=== PATIENT | female | born 1940 | race Caucasian/White ===

== ENCOUNTER 2017-03-22 16:45 | Inpatient (IN) | payer OTHER ==
[2017-03-22] MEDS ORDERED: DUONEB 0.5 MG/3 MG ONE (16:57)
--- NOTE | 2017-03-22 17:02 | DR.SOBA ---
HPI - Time Seen Time seen: 16:56 - Primary Care Physician Primary Care Physician: JABIER - HPI Comment HPI Comment: PATIENT HERE FROM THE ALF WITH INCREASING SOB AND CHEST PAIN. PROGRESSINE FOR FEW DAYS. WORSE TODAY. HAVING PRODUCTIVE COUGH, YELLOW SPUTUM. PATIENT WHEEZING AND HAVE GURGLING SOUND. SHE TIRED AND WEAK. - Complaints Chief Complaint Doctors Comments: INCREASING SOB. - Reviewed Nurses Notes Reviewed: Yes - Source History Provided: Patient, Intermediate - Mode of Arrival Mode of Arrival: Stretcher - Duration Duration: Hours - Context Onset:: At Rest, With Light Exertion PE Risk Factors:: None History of:: COPD, CHF, Anxiety Currently on:: Inhaled Bronchodilators Prehospital Care:: Inhaled B2 (BREATHING TREATMENT,) - Modifying Factors Worsens:: Exertion, Lying Flat Improves:: Sitting Up - Associated Signs and Symptoms Associated Signs and Symptoms: Wheeze, Cough, Chest Pain, Leg Swelling - If Chest Pain Quality: Other (TIGHTNESS) Location: Left Lower Chest, Chest Wall - If Cough Cough: Productive, Yellow PMH - PMH Past Medical History: Anemia, Anxiety, CHF, COPD, Coronary Artery Disease, Dementia, Depression, Dyslipidemia, GERD, Hypertension, Liver Disease Past Medical History Comment: NEUROPATHY ROS - Review of Systems Constitutional: Weakness, Fatigue. negative: Chills, Fever Eyes: No Symptoms Reported. negative: Eye Pain, Discharge ENTM: Nose Congestion. negative: Ear Pain, Nose Discharge, Throat Pain Respiratoy: Productive Cough, Short of Breath, Wheezing. negative: Hemoptysis Cardiovascular: Chest Pain (TIGHTNESS), Edema Gastrointestinal/Abdominal: negative: Abdominal Pain, Diarrhea, Nausea, Vomiting Genitourinary: negative: Dysuria, Hematuria Neurological: Weakness. negative: Headache Musculoskeletal: Muscle Pain Integumentary: negative: Rash, Bruises, Juandice Hematologic/Lymphatic: Anemia Endocrine: negative: Flushing, Increased Thirst, Increased Urine All Other Systems: Reviewed and Negative PE - Vital Signs Vitals: Temperature 98.6 F Pulse Rate [Right Brachial] 70 Pulse Rate 76 Respiratory Rate 20 Blood Pressure [Right Arm] 117/55 Blood Pressure 134/62 O2 Sat by Pulse Oximetry 96 - General Limitations: No Limitations General Appearance: Alert, In No Apparent Distress - Head Head Exam: Normal Inspection - Eyes Eye exam: Normal Appearance, PERRL, EOMI. negative: Scleral Icterus, Conjunctival Injection - ENT ENT Exam: Normal Oropharynx, Normal External Ear Exam, TM's Normal Bilaterally - Neck Neck Exam: Trachea Midline - Chest Chest Inspection: Symmetric Chest Wall Rise - Respiratory Respiratory Exam: Respiratory Distress Respiratory Exam: Bilateral Wheezing, Bilateral Rales, Upper Wheezing, Upper Rhonchi, Lower Wheezing, Lower Rales, Lower Rhonchi - Cardiovascular Cardiovascular Exam: Regular Rate, Normal Rhythm, Normal Heart Sounds, +S3 - Abdominal Exam Abdominal Exam: Normal Bowel Sounds, Soft. negative: Tenderness - Extremities Extremities Exam: Normal Inspection - Back Back Exam: Paraspinal Tenderness - Neurologic Neurological Exam: Alert, Oriented X3 - Psychiatric Psychiatric Exam: Anxious - Skin Skin Exam: Normal Color MDM - Differential Diagnosis Differential Diagnosis: Bronchitis, CHF, COPD, Mycardial Infarction, Pneumonia, Pneumothorax, Respiratory Failure Course - Treatment Treatment: SEE ORDERS. LASIX IV IN ED WITH NEB TREATMENT AND IVPB ROCEPHINE. PATIENT PLACE ON B-PAP FOR HYPERCAPNIA. - Consultation Consultation Comments: DISCUSS PATIENT WITH DR. OWEN. HE WILL ADMIT PATIENT. - Education/Counseling Education/Counseling: Patient, Education Educated On: Treatment, Diagnosis ROR - Labs Reviewed Laboratory Results Reviewed?: Yes Result Diagrams: 03/23/17 02:20 03/23/17 02:20 Laboratory: 03/22/17 17:46 Sputum - Expectorated Sputum - Final WBC 7.7 X10^3/uL (3.6-10.0) 03/22/17 17:00 RBC 4.21 X10^6/uL (3.5-5.4) 03/22/17 17:00 Hgb 12.9 g/dL (12.0-16.0) 03/22/17 17:00 Hct 39.9 % (36.0-47.0) 03/22/17 17:00 MCV 94.6 fL (80.0-100.0) 03/22/17 17:00 MCH 30.7 pg (27.0-34.0) 03/22/17 17:00 MCHC 32.5 g/dL (33.0-35.0) L 03/22/17 17:00 RDW 15.6 % (11.6-16.5) 03/22/17 17:00 Plt Count 107 X10^3/uL (150.0-450.0) L 03/22/17 17:00 MPV 10.6 fL (7.4-11.0) 03/22/17 17:00 Neut % 75.5 % (42.0-75.0) H 03/22/17 17:00 Lymph % 11.1 % (21.0-51.0) L 03/22/17 17:00 Mcminn % 12.9 % (0.0-13.0) 03/22/17 17:00 Eos % 0.0 % (0.9-2.9) L 03/22/17 17:00 Baso % 0.5 % (0.2-1.0) 03/22/17 17:00 Neut # 5.8 x10^3/uL (2.2-4.8) H 03/22/17 17:00 Lymph # 0.9 X10^3/uL (1.3-2.9) L 03/22/17 17:00 Mcminn # 1.0 x10^3/uL (0.3-0.8) H 03/22/17 17:00 Eos # 0.0 x10^3/uL (0.0-0.2) 03/22/17 17:00 Baso # 0.0 X10^3/uL (0.0-0.1) 03/22/17 17:00 Absolute Nucleated RBC 0.1 /100WBC 03/22/17 17:00 Sample Site Rba 03/22/17 17:03 ABG pH 7.200 (7.35-7.45) L 03/22/17 17:03 ABG pCO2 77.0 mmHg (35.0-45.0) H* 03/22/17 17:03 ABG pO2 75.0 mmHg (80.0-100.0) L 03/22/17 17:03 ABG HCO3 30.1 mmol/L (22-26) H* 03/22/17 17:03 ABG O2 Saturation 91.0 % (90-100) 03/22/17 17:03 ABG Base Excess 0.2 mmol/L (-2.0-2.0) 03/22/17 17:03 Daniel Test Na 03/22/17 17:03 A-a Gradient 57.0 mmHg 03/22/17 17:03 FiO2 32.000 03/22/17 17:03 Blood Gas Comments Aprk well cs 03/22/17 17:03 Sodium 140 mmol/L (136-145) 03/22/17 17:35 Corrected Sodium 141 mmol/L (136-145) 03/22/17 17:35 Potassium 5.3 mmol/L (3.5-5.1) H 03/22/17 17:35 Chloride 105 mmol/L (98-107) 03/22/17 17:35 Carbon Dioxide 29.2 mmol/L (21-32) 03/22/17 17:35 BUN 30 mg/dL (7-18) H 03/22/17 17:35 Creatinine 2.19 mg/dL (0.55-1.02) H 03/22/17 17:35 Est GFR (MDRD) Af Amer 28 (>60) L 03/22/17 17:35 Est GFR (MDRD) Non-Af 23 (>60) L 03/22/17 17:35 Glucose 156 mg/dL (65-99) H 03/22/17 17:35 Calcium 9.0 mg/dL (8.5-10.1) 03/22/17 17:35 Corrected Calcium 9.9 mg/dL (8.5-10.1) 03/22/17 17:35 Total Bilirubin 0.90 mg/dL (0.2-1.0) 03/22/17 17:35 AST 26 Units/L (15-37) 03/22/17 17:35 ALT 18 Units/L (12-78) 03/22/17 17:35 Alkaline Phosphatase 75 Units/L (46-116) 03/22/17 17:35 Creatine Kinase 222 Units/L (26-192) H 03/22/17 17:35 CK-MB (CK-2) 2.5 ng/mL (0-4.0) 03/22/17 17:35 CK/CKMB % Calc 1.1 % (<4) 03/22/17 17:35 Troponin I 0.33 ng/mL (0-1.5) 03/22/17 17:35 B-Natriuretic Peptide 433 pg/mL (0-79) H 03/22/17 17:35 Total Protein 7.7 g/dL (6.4-8.2) 03/22/17 17:35 Albumin 2.9 g/dL (3.4-5.0) L 03/22/17 17:35 Globulin 4.8 g/dL (2.5-4.5) H 03/22/17 17:35 Albumin/Globulin Ratio 0.6 Ratio (1.1-2.1) L 03/22/17 17:35 Specimen Type Catherized urine 03/22/17 17:15 Urine Color Yellow (YELLOW) 03/22/17 17:15 Urine Appearance Cloudy (CLEAR) 03/22/17 17:15 Urine pH 6.0 (5.0 - 8.0) 03/22/17 17:15 Ur Specific [place] 1.015 (1.000-1.030) 03/22/17 17:15 Urine Protein 2+ (NEGATIVE) 03/22/17 17:15 Urine Glucose (UA) Negative (NEGATIVE) 03/22/17 17:15 Urine Ketones Negative (NEGATIVE) 03/22/17 17:15 Urine Occult Blood 3+ (NEGATIVE) 03/22/17 17:15 Urine Nitrite Positive (NEGATIVE) 03/22/17 17:15 Urine Bilirubin Negative (NEGATIVE) 03/22/17 17:15 Urine Urobilinogen Normal (NORMAL) 03/22/17 17:15 Ur Leukocyte Esterase 2+ (NEGATIVE) 03/22/17 17:15 Urine RBC 15-25 /HPF (NEGATIVE) 03/22/17 17:15 Urine WBC 25-30 /HPF (NEGATIVE) 03/22/17 17:15 Ur Squamous Epith Cells Rare /HPF (NEGATIVE) 03/22/17 17:15 Urine Bacteria 3+ /HPF (NEGATIVE) 03/22/17 17:15 Ur Culture Indicated? Yes/culture set up 03/22/17 17:15 - XRAY XRAY Interpreted by: Radiologist XRAY Findings: REPORT DISCUSS WITH PATIENT. - EKG Rhythm: NSR (EKG NOTED) - Diagnosis Discharge Problem: Respiratory disease, Hypercapnia Pneumonia Qualifiers: Pneumonia type: due to unspecified organism Laterality: left Lung location: lower lobe of lung Qualified Code(s): J18.1 - Lobar pneumonia, unspecified organism CHF (congestive heart failure) Qualifiers: Congestive heart failure type: combined Congestive heart failure chronicity: acute on chronic Qualified Code(s): I50.43 - Acute on chronic combined systolic (congestive) and diastolic (congestive) heart failure UTI (urinary tract infection) Qualifiers: Urinary tract infection type: site unspecified Hematuria presence: with hematuria Qualified Code(s): N39.0 - Urinary tract infection, site not specified - Discharge Plan Disposition: 09 ADMITTED INPATIENT Condition: Stable - Follow ups/Referrals - Instructions
[2017-03-22] MEDS ORDERED: DUONEB 0.5 MG/3 MG NEB ONE (17:03)
[2017-03-22] MEDS ORDERED: LASIX IVP ONE (17:04)
[2017-03-22 17:17] LABS: ABG BASE EXCESS 0.2 mmol/L (-2.0-2.0); ABG HCO3 30.1 mmol/L (22-26)
[2017-03-22 17:24] LABS: BASOPHILS % (AUTO) 0.5 % (0.2-1.0); HEMATOCRIT 39.9 % (36.0-47.0); HEMOGLOBIN 12.9 g/dL (12.0-16.0); LYMPHOCYTES # (AUTO) 0.9 X10^3/uL (1.3-2.9); LYMPHOCYTES % (AUTO) 11.1 % (21.0-51.0); MEAN CORPUSCULAR HEMOGLOBIN 30.7 pg (27.0-34.0); MEAN CORPUSCULAR HGB CONC 32.5 g/dL (33.0-35.0); MEAN CORPUSCULAR VOLUME 94.6 fL (80.0-100.0); MEAN PLATELET VOLUME 10.6 fL (7.4-11.0); MONOCYTES % (AUTO) 12.9 % (0.0-13.0); NEUTROPHILS # (AUTO) 5.8 x10^3/uL (2.2-4.8); NEUTROPHILS % (AUTO) 75.5 % (42.0-75.0); PLATELET COUNT 107 X10^3/uL (150.0-450.0); RED BLOOD COUNT 4.21 X10^6/uL (3.5-5.4); RED CELL DISTRIBUTION WIDTH 15.6 % (11.6-16.5); WHITE BLOOD COUNT 7.7 X10^3/uL (3.6-10.0)
[2017-03-22 17:27] LABS: BILIRUBIN,URINE NEGATIVE (NEGATIVE); BLOOD/HEMOGLOBIN,URINE 3+ (NEGATIVE); GLUCOSE, URINE NEGATIVE (NEGATIVE); KETONES,URINE NEGATIVE (NEGATIVE); LEUKOCYTE ESTERASE ,URINE 2+ (NEGATIVE); NITRITES,URINE POSITIVE (NEGATIVE); PROTEIN,URINE 2+ (NEGATIVE); UROBILINOGEN,URINE NORMAL (NORMAL)
[2017-03-22 17:37] LABS: APPEARANCE,URINE CLOUDY (CLEAR); COLOR,URINE YELLOW (YELLOW)
[2017-03-22 17:38] LABS: BACTERIA,URINE 3+ /HPF (NEGATIVE); RBC,URINE 15-25 /HPF (NEGATIVE); SQUAMOUS EPITHELIAL CELL,UR RARE /HPF (NEGATIVE)
--- NOTE | 2017-03-22 17:55 | RAD ---
HISTORY: Chest pain Study: Single view chest Comparison: None Findings: Single portable view is limited by patient rotation. Ill-defined opacity seen at the left lung base that may reflect underlying atelectasis, effusion or infiltrate. Cardiac silhouette appears borderli ne enlarged with sternotomy changes present. The soft tissues are unremarkable. IMPRESSION: 1. Left basilar opacities that may reflect underlying atelectasis, effusion or infiltrate. Reported By:
[2017-03-22 18:16] LABS: CARBON DIOXIDE 29.2 mmol/L (21-32); CREATININE 2.19 mg/dL (0.55-1.02); TROPONIN I 0.33 ng/mL (0-1.5)
[2017-03-22 18:21] LABS: ALBUMIN 2.9 g/dL (3.4-5.0); CKMB % 1.1 % (<4); COR CA(FOR HYPOALB) 9.9 mg/dL (8.5-10.1); CREATINE KINASE MB 2.5 ng/mL (0-4.0); TOTAL PROTEIN 7.7 g/dL (6.4-8.2)
[2017-03-22] MEDS ORDERED: ROCEPHIN VIAL 1 GM ONE (19:25)
[2017-03-22] MEDS ORDERED: NS 50 ML IV + SPIKE MINIBAG* 50 ML IV ONE (19:27)
[2017-03-22] MEDS: ROCEPHIN VIAL 1 GM 1 GM in NS 50 ML IV + SPIKE MINIBAG* 50 ML IV SCH (19:33)
[2017-03-22 20:57] LABS: CKMB % 1.2 % (<4); CREATINE KINASE MB 1.8 ng/mL (0-4.0); TROPONIN I 0.3 ng/mL (0-1.5)
[2017-03-22] MEDS ORDERED: SOLU-Medrol 125 MG VIAL IVP ONE (21:20)
[2017-03-22] MEDS: DUONEB 0.5 MG/3 MG NEB SCH (21:47)
[2017-03-22] MEDS ORDERED: NS 1/2 1000 ML IV 1,000 ML IV ONE (21:56)
[2017-03-22] MEDS: NS 1/2 1000 ML IV 1,000 ML IV SCH (21:59)
[2017-03-22] MEDS: TUSSIONEX PENNKINETIC SUSP PO PRN (22:00)
[2017-03-22] MEDS: VIBRAMYCIN 100 MG in NS 100 ML IV + SPIKE MINIBAG* 100 ML IV SCH (22:00)
[2017-03-22] MEDS: ROBITUSSIN DM PO SCH (22:00)
[2017-03-22] MEDS: SOLU-Medrol 40 MG VIAL IVP SCH (22:02)
[2017-03-22] MEDS ORDERED: SALINE 0.9% 3 ML NEB TX ONE (22:04)
[2017-03-22 22:44] VITALS: BMI 33.6
[2017-03-23] MEDS: DUONEB 0.5 MG/3 MG NEB SCH ×6 (00:49→20:39)
[2017-03-23 02:32] LABS: BASOPHILS % (AUTO) 0.4 % (0.2-1.0); HEMATOCRIT 36.6 % (36.0-47.0); HEMOGLOBIN 11.8 g/dL (12.0-16.0); LYMPHOCYTES # (AUTO) 0.4 X10^3/uL (1.3-2.9); LYMPHOCYTES % (AUTO) 8.4 % (21.0-51.0); MEAN CORPUSCULAR HEMOGLOBIN 30.2 pg (27.0-34.0); MEAN CORPUSCULAR HGB CONC 32.3 g/dL (33.0-35.0); MEAN CORPUSCULAR VOLUME 93.3 fL (80.0-100.0); MEAN PLATELET VOLUME 9.8 fL (7.4-11.0); MONOCYTES # (AUTO) 0.4 x10^3/uL (0.3-0.8); MONOCYTES % (AUTO) 7.5 % (0.0-13.0); NEUTROPHILS # (AUTO) 4.4 x10^3/uL (2.2-4.8); NEUTROPHILS % (AUTO) 83.7 % (42.0-75.0); PLATELET COUNT 70 X10^3/uL (150.0-450.0); RED BLOOD COUNT 3.92 X10^6/uL (3.5-5.4); RED CELL DISTRIBUTION WIDTH 15.5 % (11.6-16.5); WHITE BLOOD COUNT 5.3 X10^3/uL (3.6-10.0)
[2017-03-23 02:43] LABS: ALBUMIN 2.4 g/dL (3.4-5.0); CALCIUM 8.7 mg/dL (8.5-10.1); CARBON DIOXIDE 29.6 mmol/L (21-32); CREATININE 2.19 mg/dL (0.55-1.02); TOTAL PROTEIN 6.6 g/dL (6.4-8.2)
[2017-03-23 02:58] LABS: CKMB % 1.8 % (<4); CREATINE KINASE MB 1.7 ng/mL (0-4.0); TROPONIN I 0.24 ng/mL (0-1.5)
[2017-03-23 05:53] LABS: ABG BASE EXCESS 0.4 mmol/L (-2.0-2.0)
[2017-03-23 06:05] LABS: ABG HCO3 30.6 mmol/L (22-26)
[2017-03-23 06:06] LABS: ABG ALLEN TEST POS
[2017-03-23] MEDS: SOLU-Medrol 40 MG VIAL IVP SCH ×3 (06:10→21:07)
[2017-03-23 06:35] LABS: ABG BASE EXCESS 2.1 mmol/L (-2.0-2.0)
[2017-03-23 06:36] LABS: ABG HCO3 31.9 mmol/L (22-26)
--- NOTE | 2017-03-23 07:18 | RAD ---
HISTORY: Respiratory distress Study: Chest one view Comparison: March 22, 2017 Findings: Patient is rotated to the left. The patient is status post median sternotomy and CABG. The heart is enlarged. No definite congestive heart failure is noted. The right lung and left upper lung mahoney a re clear peer E increased density remains in the retrocardiac area of the left lower lobe obscuring the left hemidiaphragm. This could be due to rotation however underlying infiltrate, atelectasis or a fusion cannot be excluded. IMPRESSION: No significant change from the prior examination Reported By:
[2017-03-23] MEDS: ROCEPHIN VIAL 1 GM 1 GM in NS 50 ML IV + SPIKE MINIBAG* 50 ML IV SCH ×2 (08:42→09:19)
[2017-03-23] MEDS: VIBRAMYCIN 100 MG in NS 100 ML IV + SPIKE MINIBAG* 100 ML IV SCH (08:43)
[2017-03-23] MEDS: ROBITUSSIN DM PO SCH ×4 (08:43→21:08)
[2017-03-23] MEDS ORDERED: NORCO 10/325 TAB PO PRN (09:10)
[2017-03-23] MEDS ORDERED: NS 1/2 1000 ML IV 1,000 ML IV ONE (09:24)
[2017-03-23] MEDS ORDERED: NS 50 ML IV + SPIKE MINIBAG* 50 ML IV ONE (09:25)
[2017-03-23] MEDS ORDERED: LEVAQUIN PREMIX IV 750 MG 750 MG/150 ML BAG IV ONE (09:25)
[2017-03-23] MEDS ORDERED: ARICEPT TAB 10 MG ONE (09:26)
[2017-03-23] MEDS ORDERED: FORTAZ or TAZICEF INJ ONE (09:27)
[2017-03-23] MEDS: FOLIC ACID TAB 1 MG PO SCH (09:52)
[2017-03-23] MEDS: COREG TAB 3.125 MG PO SCH ×2 (09:52→21:08)
[2017-03-23] MEDS: ARICEPT TAB 5 MG PO SCH (09:53)
[2017-03-23] MEDS: IMDUR PO SCH (09:54)
[2017-03-23] MEDS: ANTIVERT TAB 25 MG PO SCH ×2 (09:54→21:08)
[2017-03-23] MEDS ORDERED: LYRICA CAP 100 MG PO ONE (09:55)
[2017-03-23] MEDS: LEVAQUIN PREMIX IV 750 MG 750 MG/150 ML BAG IV SCH (09:59)
[2017-03-23] MEDS: LYRICA CAP 75 MG PO SCH ×3 (09:59→21:08)
[2017-03-23] MEDS ORDERED: ZESTRIL TAB 20 MG PO SCH (10:00)
[2017-03-23] MEDS ORDERED: FORTAZ or TAZICEF INJ 1 GM in NS 50 ML IV + SPIKE MINIBAG* 50 ML IV SCH (10:00)
[2017-03-23] MEDS ORDERED: LEVAQUIN PREMIX IV 750 MG 750 MG/150 ML BAG IV SCH (10:00)
--- NOTE | 2017-03-23 11:01 | DR.H&P ---
H&P - History & Physical for Day of: H&P Date: 03/22/17 - Chief Complaint Chief Complaint: shortness of breath - Allergies Allergies/Adverse Reactions: Allergies Allergy/AdvReac Type Severity Reaction Status Date / Time MS Sulfa Antibiotics Allergy Verified 03/22/17 17:09 - History of Present Illness History of Present Illness: Patient is a 76 yo female who presented to the emergency room with complaints of increasing shortnees of breath and chest pain which has been getting worse over the last three days. She has a productive cough with yellow which wheezing and complains of tiredness and increased weakness. Patient has history of Coronary artery disease, COPD, Sleep apnea, hyperlipidemia, hypertension, GERD, Hiatial Hernia, Anemia, anxiety and depression. Vital signs on arrival 98.6, 102, 24, 80% on NC, 134/62. Physical exam reveals bilateral wheezing and rhonchi on auscultation and patient appear very anxious. Patient was placed on bipap for hypercapnia IV Lasix given and Duoneb. ABG on arrival to ER showed pH of 7.2000, pCO2 77.0, pO2 75.0, HCO3 30.1. Labs on arrival to the emergency room were normal with the exception MCHC 32.5, Platelet count 107, Neut% 75.5, Lymph% 11.1, Eso% 0.0, Neut# 5.8, Lymph# 0.9, Stanton# 1.0, Potassium 5.3, BUN 30, Creatinine 2.19, Est GFR 23, Glucose 156 , Creatinine Kinase 222, BNP 433, Albumin 2.9, Globulin 4.8, Albumin/Globulin Ratio 0.6. Urinalysis showed 2+ protein, 3+ blood, positive for nitrites, 2+ Leukocyte esterase, RBC 15-25, WBC 25-30, 3+ bacteria. Chest xray show left basilar opacities that may reflect underlying atelectasis, effusion or infiltrate. Patient was admitted with diagnosis of pneumonia, UTI, Respiratory Distress. Patient placed on pneumonia protocol with rocephin 1gm IV, Doxycycline 100mg IV Q12hr, Solumedrol 40mg IV q8hr, Duonebs q4hr, tussionex 5ml po q12hr PRN, 1/2NS @KVO. Will follow up with patient in am with repeat labs including ABG and chest xray. - Past Medical History Past Medical History: Anemia, Anxiety, CHF, COPD, Coronary Artery Disease, Dementia, Depression, Dyslipidemia, GERD, Hypertension, Liver Disease, PR, Renal Disease - Past Surgical History Surgical History: CABG/Valve Surgery, Other - Social History Does patient currently use any type of tobacco product: No Have you used tobacco products in the last 12 months: No Type of Tobacco Use: None Does any household member use tobacco: No Alcohol Use: None Drug Use: None - Medications Home Medications: Carvedilol [COREG TAB 3.125 MG *] 1 tab PO BID 03/22/17 [History Confirmed 03/22] Donepezil Hydrochloride [ARICEPT TAB 5 MG *] 1 tab PO DAILY 03/22/17 [History Confirmed 03/22/17] Folic Acid [FOLIC ACID TAB 1 MG *] 1 tab PO DAILY 03/22/17 [History Confirmed ] Hydrocodone-Acet 10/325 mg [NORCO 10 MG/325 MG *] 1 tab PO Q6H PRN 03/22/17 [ History Confirmed 03/22/17] Isosorbide Mononitrate [IMDUR 30 MG *] 1 tab PO DAILY 03/22/17 [History Confirmed 03/22/17] Losartan Potassium 12.5 mg PO DAILY 03/22/17 [History Confirmed 03/22/17] Meclizine HCl [Meclizine 25] 1 tab PO BID 03/22/17 [History Confirmed 03/22/17] Pitavastatin Calcium [Livalo] 1 tab PO HS 03/22/17 [History Confirmed 03/22/17] Pregabalin [LYRICA 75 MG *] 1 cap PO TID 03/22/17 [History Confirmed 03/22/17] Simvastatin [ZOCOR 40 MG *] 1 tab PO HS 03/22/17 [History Confirmed 03/22/17] - Review of Systems Constitutional: Weakness, Malaise Eyes: No Symptoms Reported ENT: No Symptoms Reported Respiratory: Cough, Shortness of Breath, SOB with Excertion, Sputum, Wheezing Cardiovascular: Chest Pain Gastrointestinal: No Symptoms Reported Genitourinary: No Symptoms Reported Musculoskeletal: No Symptoms Reported Skin: No Symptoms Reported Neurological: Weakness - Physical Exam Vital Signs: 98.6, 102, 24, 80% on NC, 134/62. Oriented: Normal Eyes: Normal Ear: Normal Nose: Normal Throat: Normal Respiratory: Rhonchi Throughout, Wheezes Throughout Cardiovascular: Normal : Normal Auscultation: Bowel Sounds: Normal Palpation: Normal Tenderness: Normal Skin: Decreased Turgur Musculoskeletal: Instability Psychiatric: Normal Mood Description: Calm, Appropriate Affect: Anxious Speech Pattern: Clear, Appropriate - Assessment/Plan (1) Pneumonia Qualifiers: Pneumonia type: due to unspecified organism Aspiration pneumonia type: A Laterality: left Lung location: lower lobe of lung Qualified Code(s): J18.1 - Lobar pneumonia, unspecified organism Status: Acute Plan: pneumonia protocol rocephin 1gm IV, Doxycycline 100mg IV Q12hr, Solumedrol 40mg IV q8hr, Duonebs q4hr, tussionex 5ml po q12hr PRN (2) Respiratory disease Status: Acute Plan: BiPAP, dunebs q4hr (3) UTI (urinary tract infection) Qualifiers: Urinary tract infection type: site unspecified Hematuria presence: with hematuria Indwelling urinary catheter type: I Encounter type: E Qualified Code(s): N39.0 - Urinary tract infection, site not specified; R31.9 - Hematuria , unspecified Status: Acute Plan: rocephin 1gm IV, Doxycycline 100mg IV Q12hr
--- NOTE | 2017-03-23 11:04 | PCM.PROG ---
Progress Note - Progress Note for Day of Date: 03/23/17 - Subjective Subjective: Patient is a 76yo female who was admitted with diagnosis of pneumonia, UTI, Respiratory Distress. Patient is alert and drinking water this am and still has bipap in place. Physical exam reveals bilateral scattered rhochi and wheezing. Vital Signs this am 98.1, 66, 27, 91% on BiPaP, 103/67. ABg this am shows pH7.220, PCO2 78.0, pO2 53.0, pHCO3 79.0, ABG Base excess 2.1. Labs are within normal limits with the exception of Hgb 11.8, MCHC 32.3, Platelet count 70, Neut% 83.7, Lymph% 8.4, Eos% 0.0, Lymph# 0.4, Potassium 5.7, BUN 31, Creatinine 2.19, Est GFR 23, Glucose 159, Albumin 2.4, Albumin/Globulin Ratio 0.6. Chest Xray this am shows that increased density remains in the retrocardiac area of the left lower lobe obscuring the left hemidiaphragm. We are going to discontinue her rocephin and doxycycline and place her on Levaquin and fortaz IV. We will also resumed her home medications with the exception of losartan since her blood pressure is running a little on the low side. Also increase her solumedrol to 80mg IV Q8hr. and place SCD and GCS for VTE Prophylaxis. - Past Medical Family Social History Past Med/Fam/Surg Hx: No changes since H&P Allergies: Allergies MS Sulfa Antibiotics Allergy (Verified 03/22/17 17:09) - Review of Systems ROS: No change since H&P - Vital Signs and I&O's Vital Signs: Vital Signs this am 98.1, 66, 27, 91% on BiPaP, 103/67 Intake and Output: Intake & Output 03/20/17 03/21/17 03/22/17 03/23/17 11:59 11:59 11:59 11:59 Intake Total 220 Output Total 1275 Balance -1055 - Physical Exam Oriented: Normal Eyes: Normal Ear: Normal Nose: Normal Throat: Normal Respiratory: Wheezes, Rales (scattered wheezing and rhochi bilateral ), Rhonchi Cardiovascular: Normal : Normal Auscultation: Bowel Sounds: Normal Tenderness: Normal Skin: Decreased Turgur Musculoskeletal: Instability Psychiatric: Normal Mood Description: Calm, Appropriate Affect: Anxious Speech Pattern: Clear, Appropriate - Laboratory and Diagnostics Result Diagrams: 03/23/17 02:20 03/23/17 02:20 Labs: Laboratory WBC 5.3 X10^3/uL (3.6-10.0) 03/23/17 02:20 RBC 3.92 X10^6/uL (3.5-5.4) 03/23/17 02:20 Hgb 11.8 g/dL (12.0-16.0) L 03/23/17 02:20 Hct 36.6 % (36.0-47.0) 03/23/17 02:20 MCV 93.3 fL (80.0-100.0) 03/23/17 02:20 MCH 30.2 pg (27.0-34.0) 03/23/17 02:20 MCHC 32.3 g/dL (33.0-35.0) L 03/23/17 02:20 RDW 15.5 % (11.6-16.5) 03/23/17 02:20 Plt Count 70 X10^3/uL (150.0-450.0) L 03/23/17 02:20 MPV 9.8 fL (7.4-11.0) 03/23/17 02:20 Neut % 83.7 % (42.0-75.0) H 03/23/17 02:20 Lymph % 8.4 % (21.0-51.0) L 03/23/17 02:20 Owen % 7.5 % (0.0-13.0) 03/23/17 02:20 Eos % 0.0 % (0.9-2.9) L 03/23/17 02:20 Baso % 0.4 % (0.2-1.0) 03/23/17 02:20 Neut # 4.4 x10^3/uL (2.2-4.8) 03/23/17 02:20 Lymph # 0.4 X10^3/uL (1.3-2.9) L 03/23/17 02:20 Owen # 0.4 x10^3/uL (0.3-0.8) 03/23/17 02:20 Eos # 0.0 x10^3/uL (0.0-0.2) 03/23/17 02:20 Baso # 0.0 X10^3/uL (0.0-0.1) 03/23/17 02:20 Absolute Nucleated RBC 0.1 /100WBC 03/23/17 02:20 Sample Site Rbra 03/23/17 06:30 ABG pH 7.220 (7.35-7.45) L 03/23/17 06:30 ABG pCO2 78.0 mmHg (35.0-45.0) H* 03/23/17 06:30 ABG pO2 53.0 mmHg (80.0-100.0) L 03/23/17 06:30 ABG HCO3 31.9 mmol/L (22-26) H* 03/23/17 06:30 ABG O2 Saturation 79.0 % (90-100) L* 03/23/17 06:30 ABG Base Excess 2.1 mmol/L (-2.0-2.0) H 03/23/17 06:30 Daniel Test Na 03/23/17 06:30 A-a Gradient 99.0 mmHg 03/23/17 06:30 FiO2 35.000 03/23/17 06:30 Blood Gas Comments [place] abg well-mtf 03/23/17 06:30 Sodium 142 mmol/L (136-145) 03/23/17 02:20 Corrected Sodium 143 mmol/L (136-145) 03/23/17 02:20 Potassium 5.7 mmol/L (3.5-5.1) H 03/23/17 02:20 Chloride 107 mmol/L (98-107) 03/23/17 02:20 Carbon Dioxide 29.6 mmol/L (21-32) 03/23/17 02:20 BUN 31 mg/dL (7-18) H 03/23/17 02:20 Creatinine 2.19 mg/dL (0.55-1.02) H 03/23/17 02:20 Est GFR (MDRD) Af Amer 28 (>60) L 03/23/17 02:20 Est GFR (MDRD) Non-Af 23 (>60) L 03/23/17 02:20 Glucose 159 mg/dL (65-99) H 03/23/17 02:20 Calcium 8.7 mg/dL (8.5-10.1) 03/23/17 02:20 Corrected Calcium 10.0 mg/dL (8.5-10.1) 03/23/17 02:20 Total Bilirubin 0.60 mg/dL (0.2-1.0) 03/23/17 02:20 AST 17 Units/L (15-37) 03/23/17 02:20 ALT 14 Units/L (12-78) 03/23/17 02:20 Alkaline Phosphatase 60 Units/L (46-116) 03/23/17 02:20 Creatine Kinase 97 Units/L (26-192) 03/23/17 02:20 CK-MB (CK-2) 1.7 ng/mL (0-4.0) 03/23/17 02:20 CK/CKMB % Calc 1.8 % (<4) 03/23/17 02:20 Troponin I 0.24 ng/mL (0-1.5) 03/23/17 02:20 B-Natriuretic Peptide 433 pg/mL (0-79) H 03/22/17 17:35 Total Protein 6.6 g/dL (6.4-8.2) 03/23/17 02:20 Albumin 2.4 g/dL (3.4-5.0) L 03/23/17 02:20 Globulin 4.2 g/dL (2.5-4.5) 03/23/17 02:20 Albumin/Globulin Ratio 0.6 Ratio (1.1-2.1) L 03/23/17 02:20 Specimen Type Catherized urine 03/22/17 17:15 Urine Color Yellow (YELLOW) 03/22/17 17:15 Urine Appearance Cloudy (CLEAR) 03/22/17 17:15 Urine pH 6.0 (5.0 - 8.0) 03/22/17 17:15 Ur Specific [place] 1.015 (1.000-1.030) 03/22/17 17:15 Urine Protein 2+ (NEGATIVE) 03/22/17 17:15 Urine Glucose (UA) Negative (NEGATIVE) 03/22/17 17:15 Urine Ketones Negative (NEGATIVE) 03/22/17 17:15 Urine Occult Blood 3+ (NEGATIVE) 03/22/17 17:15 Urine Nitrite Positive (NEGATIVE) 03/22/17 17:15 Urine Bilirubin Negative (NEGATIVE) 03/22/17 17:15 Urine Urobilinogen Normal (NORMAL) 03/22/17 17:15 Ur Leukocyte Esterase 2+ (NEGATIVE) 03/22/17 17:15 Urine RBC 15-25 /HPF (NEGATIVE) 03/22/17 17:15 Urine WBC 25-30 /HPF (NEGATIVE) 03/22/17 17:15 Ur Squamous Epith Cells Rare /HPF (NEGATIVE) 03/22/17 17:15 Urine Bacteria 3+ /HPF (NEGATIVE) 03/22/17 17:15 Ur Culture Indicated? Yes/culture set up 03/22/17 17:15 Radiology Reviewed: Yes EKG Reviewed: Yes - Plan (1) Pneumonia Status: Acute Qualifiers: Pneumonia type: due to unspecified organism Aspiration pneumonia type: A Laterality: left Lung location: lower lobe of lung Qualified Code(s): J18.1 - Lobar pneumonia, unspecified organism Plan: pneumonia protocol rocephin 1gm IV, Doxycycline 100mg IV Q12hr, Solumedrol 40mg IV q8hr, Duonebs q4hr, tussionex 5ml po q12hr PRN (2) Respiratory disease Status: Acute Plan: BiPAP, dunebs q4hr (3) UTI (urinary tract infection) Status: Acute Qualifiers: Urinary tract infection type: site unspecified Hematuria presence: with hematuria Indwelling urinary catheter type: I Encounter type: E Qualified Code(s): N39.0 - Urinary tract infection, site not specified; R31.9 - Hematuria , unspecified Plan: rocephin 1gm IV, Doxycycline 100mg IV Q12hr (4) Hypertension Status: Chronic Qualifiers: Hypertension type: H Plan: continue imdur (5) Hyperlipidemia Status: Chronic Qualifiers: Hyperlipidemia type: H Plan: continue zocor, livalo (6) Anemia Status: Chronic Qualifiers: Anemia type: folate deficiency Iron deficiency anemia type: I Vitamin B12 deficiency anemia type: V Folate deficiency anemia type: F Bone marrow failure anemia type: B Hemolytic anemia type: H Other causes of anemia: O Chronic kidney disease stage: C Plan: continue folic acid (7) Coronary artery disease Status: Chronic Qualifiers: Coronary Disease-Associated Artery/Lesion type: C [place] vs. transplanted heart: N Associated angina: A Plan: continue coreg
[2017-03-23] MEDS: NS 1/2 1000 ML IV 1,000 ML IV SCH (19:04)
[2017-03-23] MEDS: TUSSIONEX PENNKINETIC SUSP PO PRN (21:07)
[2017-03-23] MEDS: ZOCOR TAB 40 MG PO SCH (21:08)
[2017-03-23] MEDS: PITAVASTATIN CALCIUM PO SCH (21:10)
[2017-03-23] MEDS: BUTT CREAM (COMPOUND) TOP PRN (21:13)
[2017-03-24] MEDS: DUONEB 0.5 MG/3 MG NEB SCH ×6 (01:16→20:40)
[2017-03-24] MEDS ORDERED: NYSTATIN POWDER ONE (04:19)
[2017-03-24] MEDS: NS 1/2 1000 ML IV 1,000 ML IV SCH (04:42)
[2017-03-24] MEDS: NYSTATIN POWDER TOP SCH ×3 (04:43→20:53)
[2017-03-24] MEDS: LYRICA CAP 75 MG PO SCH ×3 (05:06→21:00)
[2017-03-24] MEDS: SOLU-Medrol 40 MG VIAL IVP SCH ×3 (05:06→21:00)
[2017-03-24 05:20] LABS: ABG BASE EXCESS 4.2 mmol/L (-2.0-2.0)
[2017-03-24 05:22] LABS: ALBUMIN 2.1 g/dL (3.4-5.0); C-REACTIVE PROTEIN 162.1 mg/L (0-3.0); CALCIUM 8.6 mg/dL (8.5-10.1); CARBON DIOXIDE 29.2 mmol/L (21-32); COR CA(FOR HYPOALB) 10.1 mg/dL (8.5-10.1); CREATININE 1.92 mg/dL (0.55-1.02); TOTAL PROTEIN 6.3 g/dL (6.4-8.2)
[2017-03-24 05:22] LABS: ABG HCO3 32.7 mmol/L (22-26)
[2017-03-24 05:53] LABS: BASOPHILS % (AUTO) 0.1 % (0.2-1.0); HEMATOCRIT 35.4 % (36.0-47.0); HEMOGLOBIN 11.6 g/dL (12.0-16.0); LYMPHOCYTES # (AUTO) 0.6 X10^3/uL (1.3-2.9); LYMPHOCYTES % (AUTO) 13.6 % (21.0-51.0); MEAN CORPUSCULAR HEMOGLOBIN 30.1 pg (27.0-34.0); MEAN CORPUSCULAR HGB CONC 32.7 g/dL (33.0-35.0); MEAN CORPUSCULAR VOLUME 91.9 fL (80.0-100.0); MEAN PLATELET VOLUME 10.6 fL (7.4-11.0); MONOCYTES # (AUTO) 0.2 x10^3/uL (0.3-0.8); MONOCYTES % (AUTO) 4.9 % (0.0-13.0); NEUTROPHILS # (AUTO) 3.5 x10^3/uL (2.2-4.8); NEUTROPHILS % (AUTO) 81.4 % (42.0-75.0); PLATELET COUNT 69 X10^3/uL (150.0-450.0); RED BLOOD COUNT 3.85 X10^6/uL (3.5-5.4); RED CELL DISTRIBUTION WIDTH 14.8 % (11.6-16.5); WHITE BLOOD COUNT 4.3 X10^3/uL (3.6-10.0)
--- NOTE | 2017-03-24 06:11 | RAD ---
HISTORY: Follow up pneumonia Study: Chest one view Comparison: March 23, 2017 Findings: The patient is rotated slightly to the right. The patient is status post median sternotomy and CABG. The heart remains enlarged. No congestive heart failure is noted. The right lung and left upper timothy g mahoney are clear. Increased density remains in the retrocardiac area of the left lower lobe which could be on the basis of atelectasis, effusion, infiltrate or a combination. Upright PA and lateral chest examination may be of further diagnostic value. IMPRESSION: Cardiomegaly without congestive heart failure Persistent retrocardiac density obscuring the medial left hemidiaphragm which could be on the basis of atelectasis, infiltrate, effusion or a combination. Reported By:
[2017-03-24 06:33] LABS: ERYTHROCYTE SEDIMENTATION RATE 62 MM/HOUR (0-20)
[2017-03-24] MEDS: ARICEPT TAB 5 MG PO SCH (08:54)
[2017-03-24] MEDS: ROBITUSSIN DM PO SCH ×4 (08:54→20:51)
[2017-03-24] MEDS: IMDUR PO SCH (08:55)
[2017-03-24] MEDS: COREG TAB 3.125 MG PO SCH ×2 (08:55→20:52)
[2017-03-24] MEDS: FOLIC ACID TAB 1 MG PO SCH (08:55)
[2017-03-24] MEDS: FORTAZ or TAZICEF INJ 1 GM in NS 50 ML IV + SPIKE MINIBAG* 50 ML IV SCH (08:55)
[2017-03-24] MEDS: ANTIVERT TAB 25 MG PO SCH ×2 (08:55→20:53)
--- NOTE | 2017-03-24 12:41 | PCM.PROG ---
Progress Note - Progress Note for Day of Date: 03/24/17 - Subjective Subjective: Patient is a 76yo female who was admitted with diagnosis of pneumonia, UTI, Respiratory Distress. Patient is alert and is off of her bipap and on NC at 3l with an oxygen saturation of 98%. Patient states she is feeling better. Vital signs this am 97.0, 65, 19, 98% NC, 135/49. Labs are within normal limits with the exception of Hgb 11.6, Hct 35.4, MCHC 32.7, Plt Count 69 , Neut% 81.4, Lymph 13.6, Eos% 0.0, Baso% 0.0=1, Lymph# 0.6, [place]# 0.2, ESR 62, Potassium 5.2, BUN 32, Creatinine 1.92, Est GFR 27, Glucose 141, AST 11, CRP 162.10, Total Protein 6.3, Albumin 2.1, Albumin/Globulin Ratio 0.5. ABG within normal limits with the exception of pH 7.290, pCO2 78.0, HCO3 32.7, Base Excess 4.2. Chest xray this am shows cardiomegaly without congestive heart failure, persistent retro cardiac density obscuring the medial left hemidiaphragm which could be on the basis of atelectasis, infiltrate, effusion or a combination. Physical exams reveals wheezing and rhochi we are going to add mucomyst to her nebulizer treatments. We will follow up with patient in the am with repeat labs and chest XRAY. - Past Medical Family Social History Past Med/Fam/Surg Hx: No changes since H&P Allergies: Allergies MS Sulfa Antibiotics Allergy (Verified 03/22/17 17:09) - Review of Systems ROS: No change since H&P - Vital Signs and I&O's Vital Signs: 97.0, 65, 19, 98% NC, 135/49 Intake and Output: Intake & Output 03/22/17 03/23/17 03/24/17 03/25/17 11:59 11:59 11:59 11:59 Intake Total 220 2045 Output Total 1275 1350 Balance -1055 695 - Physical Exam Oriented: Normal Eyes: Normal Ear: Normal Nose: Normal Throat: Normal Respiratory: Wheezes, Rhonchi (scattered wheezing and rhochi bilateral ) Cardiovascular: Normal : Normal Auscultation: Bowel Sounds: Normal Palpation: Normal Tenderness: Normal Skin: Decreased Turgur Musculoskeletal: Instability Psychiatric: Normal Mood Description: Calm, Appropriate Affect: Anxious Speech Pattern: Clear, Appropriate - Laboratory and Diagnostics Result Diagrams: 03/24/17 04:30 03/24/17 04:30 Labs: Laboratory WBC 4.3 X10^3/uL (3.6-10.0) 03/24/17 04:30 RBC 3.85 X10^6/uL (3.5-5.4) 03/24/17 04:30 Hgb 11.6 g/dL (12.0-16.0) L 03/24/17 04:30 Hct 35.4 % (36.0-47.0) L 03/24/17 04:30 MCV 91.9 fL (80.0-100.0) 03/24/17 04:30 MCH 30.1 pg (27.0-34.0) 03/24/17 04:30 MCHC 32.7 g/dL (33.0-35.0) L 03/24/17 04:30 RDW 14.8 % (11.6-16.5) 03/24/17 04:30 Plt Count 69 X10^3/uL (150.0-450.0) L 03/24/17 04:30 MPV 10.6 fL (7.4-11.0) 03/24/17 04:30 Neut % 81.4 % (42.0-75.0) H 03/24/17 04:30 Lymph % 13.6 % (21.0-51.0) L 03/24/17 04:30 [place] % 4.9 % (0.0-13.0) 03/24/17 04:30 Eos % 0.0 % (0.9-2.9) L 03/24/17 04:30 Baso % 0.1 % (0.2-1.0) L 03/24/17 04:30 Neut # 3.5 x10^3/uL (2.2-4.8) 03/24/17 04:30 Lymph # 0.6 X10^3/uL (1.3-2.9) L 03/24/17 04:30 [place] # 0.2 x10^3/uL (0.3-0.8) L 03/24/17 04:30 Eos # 0.0 x10^3/uL (0.0-0.2) 03/24/17 04:30 Baso # 0.0 X10^3/uL (0.0-0.1) 03/24/17 04:30 Absolute Nucleated RBC 0.1 /100WBC 03/24/17 04:30 ESR 62 MM/HOUR (0-20) H 03/24/17 04:30 Sample Site Rbra 03/24/17 05:15 ABG pH 7.290 (7.35-7.45) L 03/24/17 05:15 ABG pCO2 68.0 mmHg (35.0-45.0) H* 03/24/17 05:15 ABG pO2 78.0 mmHg (80.0-100.0) L 03/24/17 05:15 ABG HCO3 32.7 mmol/L (22-26) H* 03/24/17 05:15 ABG O2 Saturation 94.0 % (90-100) 03/24/17 05:15 ABG Base Excess 4.2 mmol/L (-2.0-2.0) H 03/24/17 05:15 Daniel Test Na 03/24/17 05:15 A-a Gradient 94.0 mmHg 03/24/17 05:15 FiO2 36.000 03/24/17 05:15 Blood Gas Comments [place] abg well-mtf 03/24/17 05:15 Sodium 139 mmol/L (136-145) 03/24/17 04:30 Corrected Sodium 140 mmol/L (136-145) 03/24/17 04:30 Potassium 5.2 mmol/L (3.5-5.1) H 03/24/17 04:30 Chloride 104 mmol/L (98-107) 03/24/17 04:30 Carbon Dioxide 29.2 mmol/L (21-32) 03/24/17 04:30 BUN 32 mg/dL (7-18) H 03/24/17 04:30 Creatinine 1.92 mg/dL (0.55-1.02) H 03/24/17 04:30 Est GFR (MDRD) Af Amer 33 (>60) L 03/24/17 04:30 Est GFR (MDRD) Non-Af 27 (>60) L 03/24/17 04:30 Glucose 141 mg/dL (65-99) H 03/24/17 04:30 Calcium 8.6 mg/dL (8.5-10.1) 03/24/17 04:30 Corrected Calcium 10.1 mg/dL (8.5-10.1) 03/24/17 04:30 Total Bilirubin 0.30 mg/dL (0.2-1.0) 03/24/17 04:30 AST 11 Units/L (15-37) L 03/24/17 04:30 ALT 14 Units/L (12-78) 03/24/17 04:30 Alkaline Phosphatase 54 Units/L (46-116) 03/24/17 04:30 Creatine Kinase 97 Units/L (26-192) 03/23/17 02:20 CK-MB (CK-2) 1.7 ng/mL (0-4.0) 03/23/17 02:20 CK/CKMB % Calc 1.8 % (<4) 03/23/17 02:20 Troponin I 0.24 ng/mL (0-1.5) 03/23/17 02:20 C-Reactive Protein 162.10 mg/L (0-3.0) H 03/24/17 04:30 B-Natriuretic Peptide 433 pg/mL (0-79) H 03/22/17 17:35 Total Protein 6.3 g/dL (6.4-8.2) L 03/24/17 04:30 Albumin 2.1 g/dL (3.4-5.0) L 03/24/17 04:30 Globulin 4.2 g/dL (2.5-4.5) 03/24/17 04:30 Albumin/Globulin Ratio 0.5 Ratio (1.1-2.1) L 03/24/17 04:30 Specimen Type Catherized urine 03/22/17 17:15 Urine Color Yellow (YELLOW) 03/22/17 17:15 Urine Appearance Cloudy (CLEAR) 03/22/17 17:15 Urine pH 6.0 (5.0 - 8.0) 03/22/17 17:15 Ur Specific Boss 1.015 (1.000-1.030) 03/22/17 17:15 Urine Protein 2+ (NEGATIVE) 03/22/17 17:15 Urine Glucose (UA) Negative (NEGATIVE) 03/22/17 17:15 Urine Ketones Negative (NEGATIVE) 03/22/17 17:15 Urine Occult Blood 3+ (NEGATIVE) 03/22/17 17:15 Urine Nitrite Positive (NEGATIVE) 03/22/17 17:15 Urine Bilirubin Negative (NEGATIVE) 03/22/17 17:15 Urine Urobilinogen Normal (NORMAL) 03/22/17 17:15 Ur Leukocyte Esterase 2+ (NEGATIVE) 03/22/17 17:15 Urine RBC 15-25 /HPF (NEGATIVE) 03/22/17 17:15 Urine WBC 25-30 /HPF (NEGATIVE) 03/22/17 17:15 Ur Squamous Epith Cells Rare /HPF (NEGATIVE) 03/22/17 17:15 Urine Bacteria 3+ /HPF (NEGATIVE) 03/22/17 17:15 Ur Culture Indicated? Yes/culture set up 03/22/17 17:15 - Plan (1) Pneumonia Status: Acute Qualifiers: Pneumonia type: due to unspecified organism Aspiration pneumonia type: A Laterality: left Lung location: lower lobe of lung Qualified Code(s): J18.1 - Lobar pneumonia, unspecified organism Plan: pneumonia protocol rocephin 1gm IV, Doxycycline 100mg IV Q12hr, Solumedrol 40mg IV q8hr, Duonebs q4hr, tussionex 5ml po q12hr PRN (2) UTI (urinary tract infection) Status: Acute Qualifiers: Urinary tract infection type: site unspecified Hematuria presence: with hematuria Indwelling urinary catheter type: I Encounter type: E Qualified Code(s): N39.0 - Urinary tract infection, site not specified; R31.9 - Hematuria , unspecified Plan: rocephin 1gm IV, Doxycycline 100mg IV Q12hr (3) Hypertension Status: Chronic Qualifiers: Hypertension type: H Plan: continue imdur (4) Hyperlipidemia Status: Chronic Qualifiers: Hyperlipidemia type: H Plan: continue zocor, livalo (5) Anemia Status: Chronic Qualifiers: Anemia type: folate deficiency Iron deficiency anemia type: I Vitamin B12 deficiency anemia type: V Folate deficiency anemia type: F Bone marrow failure anemia type: B Hemolytic anemia type: H Other causes of anemia: O Chronic kidney disease stage: C Plan: continue folic acid (6) Coronary artery disease Status: Chronic Qualifiers: Coronary Disease-Associated Artery/Lesion type: C [place] vs. transplanted heart: N Associated angina: A Plan: continue coreg (7) Respiratory distress Status: Acute Plan: supplemental , dunebs q4hr with mucomyst
[2017-03-24] MEDS ORDERED: MUCOMYST (RESPIRATORY USE ONLY) NEB SCH (13:00)
[2017-03-24] MEDS: MUCOMYST 20% 200 MG/ML NEB SCH ×2 (16:22→20:39)
[2017-03-24] MEDS: ZOCOR TAB 40 MG PO SCH (20:52)
[2017-03-24] MEDS: PITAVASTATIN CALCIUM PO SCH (20:56)
[2017-03-24] MEDS: BUTT CREAM (COMPOUND) TOP PRN (22:15)
[2017-03-25] MEDS: MUCOMYST 20% 200 MG/ML NEB SCH ×4 (00:44→12:11)
[2017-03-25] MEDS: DUONEB 0.5 MG/3 MG NEB SCH ×4 (00:44→12:11)
[2017-03-25 05:04] LABS: ABG BASE EXCESS 5.4 mmol/L (-2.0-2.0)
[2017-03-25 05:06] LABS: ABG HCO3 32.6 mmol/L (22-26)
[2017-03-25 05:06] LABS: CALCIUM 8.4 mg/dL (8.5-10.1); CARBON DIOXIDE 28.6 mmol/L (21-32); CREATININE 1.68 mg/dL (0.55-1.02); TOTAL PROTEIN 5.8 g/dL (6.4-8.2)
[2017-03-25 05:09] LABS: BASOPHILS % (AUTO) 0.2 % (0.2-1.0); EOSINOPHILS % (AUTO) 0.1 % (0.9-2.9); HEMATOCRIT 31.8 % (36.0-47.0); HEMOGLOBIN 10.7 g/dL (12.0-16.0); LYMPHOCYTES # (AUTO) 0.5 X10^3/uL (1.3-2.9); LYMPHOCYTES % (AUTO) 15.1 % (21.0-51.0); MEAN CORPUSCULAR HEMOGLOBIN 30.4 pg (27.0-34.0); MEAN CORPUSCULAR HGB CONC 33.6 g/dL (33.0-35.0); MEAN CORPUSCULAR VOLUME 90.5 fL (80.0-100.0); MEAN PLATELET VOLUME 10.6 fL (7.4-11.0); MONOCYTES # (AUTO) 0.2 x10^3/uL (0.3-0.8); MONOCYTES % (AUTO) 5.3 % (0.0-13.0); NEUTROPHILS # (AUTO) 2.8 x10^3/uL (2.2-4.8); NEUTROPHILS % (AUTO) 79.3 % (42.0-75.0); PLATELET COUNT 77 X10^3/uL (150.0-450.0); RED BLOOD COUNT 3.52 X10^6/uL (3.5-5.4); RED CELL DISTRIBUTION WIDTH 14.9 % (11.6-16.5); WHITE BLOOD COUNT 3.6 X10^3/uL (3.6-10.0)
[2017-03-25] MEDS: LYRICA CAP 75 MG PO SCH ×2 (05:53→14:05)
[2017-03-25] MEDS: SOLU-Medrol 40 MG VIAL IVP SCH ×2 (05:53→14:05)
--- NOTE | 2017-03-25 06:11 | RAD ---
HISTORY: Follow up pneumonia Study: Chest one view Comparison: March 24, 2017 Findings: The patient is rotated to the left. The patient is status post median sternotomy and CABG. The heart remains enlarged. No definite congestive heart failure is identified. The right lung and left upper lung mahoney are clear. There is improving aeration of the left lower lobe with the lateral aspect o f the left hemidiaphragm now visible. The medial left hemidiaphragm remains obscured either by infil trate or atelectasis. The bony thorax is unremarkable. IMPRESSION: Cardiomegaly without congestive heart failure Improving aeration of the retrocardiac area of the left lower lobe with the lateral aspect of the le ft hemidiaphragm now visible. The medial left hemidiaphragm remains obscured other by atelectasis or infiltrate. Reported By:
[2017-03-25] MEDS: NS 1/2 1000 ML IV 1,000 ML IV SCH ×2 (07:25→07:26)
[2017-03-25] MEDS: ANTIVERT TAB 25 MG PO SCH (08:18)
[2017-03-25] MEDS: IMDUR PO SCH (08:18)
[2017-03-25] MEDS: FORTAZ or TAZICEF INJ 1 GM in NS 50 ML IV + SPIKE MINIBAG* 50 ML IV SCH (08:18)
[2017-03-25] MEDS: FOLIC ACID TAB 1 MG PO SCH (08:18)
[2017-03-25] MEDS: ROBITUSSIN DM PO SCH ×2 (08:18→13:33)
[2017-03-25] MEDS: NYSTATIN POWDER TOP SCH (08:19)
[2017-03-25] MEDS: ARICEPT TAB 5 MG PO SCH (08:21)
[2017-03-25] MEDS: COREG TAB 3.125 MG PO SCH (08:23)
[2017-03-25] MEDS: LEVAQUIN PREMIX IV 750 MG 750 MG/150 ML BAG IV SCH (09:20)
[2017-03-25] MEDS ORDERED: DULCOLAX SUPPOSITORY 10 MG RECTAL ONE (09:27)
--- NOTE | 2017-03-25 10:02 | DR.CARTERD ---
- Discharge Summary for: Discharge Summary for Date of:: 03/25/17 - Admission Date Date of Admission: 03/22/17 - Admission Diagnoses Admission Diagnosis: Pneumonia. UTI. Respiratory Distress - Discharge Date Discharge Date: 03/25/17 - Discharge Diagnoses Discharge Diagnosis: Pneumonia UTI Respiratory Distress Urine culture positive for Ecoli COPD Sleep Apnea Hyperlipidemia Hypertension GERD Anxiety Depression - Hospital Course Hospital Course: Patient is a 76 yo female who presented to the emergency room with complaints of increasing shortnees of breath and chest pain which has been getting worse over the last three days. She had a productive cough with yellow which wheezing and complains of tiredness and increased weakness. Patient has history of Coronary artery disease, COPD, Sleep apnea, hyperlipidemia, hypertension, GERD, Hiatial Hernia, Anemia, anxiety and depression. Vital signs on arrival 98.6, 102 , 24, 80% on NC, 134/62. Physical exam reveals bilateral wheezing and rhonchi on auscultation and patient appear very anxious. Patient was placed on bipap for hypercapnia IV Lasix given and Duoneb. ABG on arrival to ER showed pH of 7.2000, pCO2 77.0, pO2 75.0, HCO3 30.1. Labs on arrival to the emergency room were normal with the exception MCHC 32.5, Platelet count 107, Neut% 75.5, Lymph % 11.1, Eso% 0.0, Neut# 5.8, Lymph# 0.9, [place]# 1.0, Potassium 5.3, BUN 30, Creatinine 2.19, Est GFR 23, Glucose 156, Creatinine Kinase 222, BNP 433, Albumin 2.9, Globulin 4.8, Albumin/Globulin Ratio 0.6. Urinalysis showed 2+ protein, 3+ blood, positive for nitrites, 2+ Leukocyte esterase, RBC 15-25, WBC 25-30, 3+ bacteria. Chest xray show left basilar opacities that may reflect underlying atelectasis, effusion or infiltrate. Patient was admitted with diagnosis of pneumonia, UTI, Respiratory Distress. Patient placed on pneumonia protocol with rocephin 1gm IV, Doxycycline 100mg IV Q12hr, Solumedrol 40mg IV q8hr, Duonebs q4hr, tussionex 5ml po q12hr PRN, 1/2NS @KVO. Will follow up with patient in am with repeat labs including ABG and chest xray. We discontinued her rocephin and doxycycline and place her on Levaquin and fortaz IV. We will also resumed her home medications with the exception of losartan since her blood pressure is running a little on the low side. Also increase her solumedrol to 80mg IV Q8hr. on 03/24 patient was removed from the BiPap and was tolerating oxygen well. Mucomyst was added to her nebulizer treatment. This am patient states she is feeling much better lungs are sounding much better with only some scattered wheezing. Her urine culture grew out Ecoli. Labs this am are within normal limits with the exception of Hgb 10.7, Hct 31.8, Plt count 77 , Neut% 79.3, Lymph% 15.1, Eos% 0.1, Lymph# 0.5, [place]# 0.2, BUN 35, Creatinine 1.68, Est GFR 31, Glucose 132, Calcium 8.4, AST 10, Total Protein 5.8, Albumin 2.0, Albumin/globulin Ratio 0.5. ABG this am is within normal limits with the exception of pCO2 59.0, pO2 160, HCO3 32.6, Base Excess 5.4. Chest Xray this am shows cardiomegaly without congestive heart failure. Improving aeration of the retrocardiac area of the left lower lobe with the lateral aspect of the left hemidiaphargm now visible. The medial left hemidiaphragm remains obscured other by atelectasis or infiltrate. We are going to discharge her [facility] in stable condition. Patient to have BiPap at nursing she is to wear when she is sleeping at night as well as for naps, use settings from hospital stay. Patient to continue home medications with the addition of: Symbicort 160/4.5 1 puff q12hr, Spiriva 1 puff daily, prednisone 10mg daily for 1 month, protonix 40mg daily, augmentin 500mg daily x10 days. Labs: Labs this am are within normal limits with the exception of Hgb 10.7, Hct 31.8 , Plt count 77, Neut% 79.3, Lymph% 15.1, Eos% 0.1, Lymph# 0.5, [place]# 0.2, BUN 35 , Creatinine 1.68, Est GFR 31, Glucose 132, Calcium 8.4, AST 10, Total Protein 5.8, Albumin 2.0, Albumin/globulin Ratio 0.5. ABG this am is within normal limits with the exception of pCO2 59.0, pO2 160, HCO3 32.6, Base Excess 5.4. - Discharge Medications Discharge Medications: Carvedilol [COREG TAB 3.125 MG *] 1 tab PO BID 03/22/17 [History] Donepezil Hydrochloride [ARICEPT TAB 5 MG *] 1 tab PO DAILY 03/22/17 [History] Folic Acid [FOLIC ACID TAB 1 MG *] 1 tab PO DAILY 03/22/17 [History] Hydrocodone-Acet 10/325 mg [NORCO 10 MG/325 MG *] 1 tab PO Q6H PRN 03/22/17 [ History] Isosorbide Mononitrate [IMDUR 30 MG *] 1 tab PO DAILY 03/22/17 [History] Losartan Potassium 12.5 mg PO DAILY 03/22/17 [History] Meclizine HCl [Meclizine 25] 1 tab PO BID 03/22/17 [History] Pitavastatin Calcium [Livalo] 1 tab PO HS 03/22/17 [History] Pregabalin [LYRICA 75 MG *] 1 cap PO TID 03/22/17 [History] Simvastatin [ZOCOR 40 MG *] 1 tab PO HS 03/22/17 [History] Amoxicillin & Pot Clavulanate [Augmentin 500-125 mg] 1 tab PO DAILY #10 tab [Rx] Budesonide-Formoterol [SYMBICORT INH 160/4.5 mcg] 1 puff IN Q12H #1 inh [Rx] Pantoprazole Sodium 40 mg [Protonix Tab 40 mg] 40 mg PO DAILY #30 tab 03/25/17 [ Rx] Prednisone [Prednisone Tab 10 mg] 10 mg PO QAM #30 tab 03/25/17 [Rx] Tiotropium [place] Monohydrate [SPIRIVA HANDIHALER (30 DOSE) *] 1 cap IN DAILY # 1 inhaler 03/25/17 [Rx] - Discharge Disposition Discharge Disposition: [facility]
[2017-03-25 13:27] VITALS: BP 117/54
== END 2017-03-25 14:05 | DRG 193 ==
LOC: ER 16:52 → ICU 19:59
PROVIDERS: ADMIT Internal Medicine; ATTEND Internal Medicine
DX: J18.8 Other pneumonia, unspecified organism (principal); N39.0 Urinary tract infection, site not specified; R06.09 Other forms of dyspnea; I50.43 Acute on chronic combined systolic (congestive) and diastolic (congestive) heart failure; R06.02 Shortness of breath; R07.89 Other chest pain; E78.2 Mixed hyperlipidemia; K21.9 Gastro-esophageal reflux disease without esophagitis; I10 Essential (primary) hypertension; I25.10 Atherosclerotic heart disease of native coronary artery without angina pectoris; J44.9 Chronic obstructive pulmonary disease, unspecified; R06.89 Other abnormalities of breathing; R31.9 Hematuria, unspecified; D64.89 Other specified anemias; B96.29 Other Escherichia coli [E. coli] as the cause of diseases classified elsewhere; F41.8 Other specified anxiety disorders; F32.89 Other specified depressive episodes; R26.89 Other abnormalities of gait and mobility
CPT/HCPCS: 36415; 36600; 51702; 71010; 80053; 81001; 82550; 82553; 82803; 83880; 84484; 85025; 85652; 86140; 87040; 87070; 87086; 87088; 87186; 87205; 93005; 94640; 94660; 96365; 96367; 96374; 96375; 97535; 99284; 99285; A4222; A4618; A7030; J0696; J0713; J1940; J1956; J2920; J2930; J3490; J7608; J7620

== ENCOUNTER 2017-03-29 17:21 | Inpatient (IN) | payer OTHER ==
[~2017-03-29 17:21] MED LIST: DIPRIVAN VIAL ONE; KETALAR ONE; NEOSTIGMINE INJ ONE; NORCURON INJ 10 MG VIAL ONE; QUELICIN (OR ANECTINE) ONE; ROBINUL ONE; SUPRANE IN ONE
--- NOTE | 2017-03-29 18:07 | DR.SOBA ---
HPI - Time Seen Time seen: 18:05 - Primary Care Physician Primary Care Physician: DR. EUGENE - HPI Comment HPI Comment: PATIENT WAS BLUE AROUND HER MOUTH. RECENTLY IN HOSPITAL FOR PNEUMONIA. NO FEVER. COUGHING YELLOW SPUTUM. - Complaints Chief Complaint Doctors Comments: SOB, LOW BLOOD PRESSURE. Chief Complaint:: HALFWAY STAFF STATED THAT PATIENT HAS BEEN RUNNING A LOW BLOOD PRESSURE AND THAT SHE HAD SOME RESP. DISTRESS. FAMILY STATED THAT SHE TURNED BLUE AROUND HER MOUTH AND TONGUE. THEY STATED THAT THIS HAPPEN ABOUT 45 MINS. PRIOR TO ARRIVING IN THE ED. - Reviewed Nurses Notes Reviewed: Yes - Source History Provided: Family Member, Penitentiary - Mode of Arrival Mode of Arrival: Stretcher - Timing Onset of Chief Complaint: 03/29/17 - Duration Duration: Hours - Context Onset:: At Rest PE Risk Factors:: Immobilization PMH - PMH Past Medical History: Yes Past Medical History: Anemia, Anxiety, CHF, COPD, Coronary Artery Disease, Dementia, Depression, Dyslipidemia, GERD, Hypertension, Liver Disease, [place], Renal Disease Past Surgical History: Yes Surgical History: CABG/Valve Surgery, Other - Family History History of Family Medical Conditions: No - Social History Does patient currently use any type of tobacco product: No Have you used tobacco products in the last 12 months: No Type of Tobacco Use: None Does any household member use tobacco: No Alcohol Use: None Do you use any recreational Drugs:: No Lives With: Family Lives Where: Home - infectious screening In the last 2 months have you had wt loss of >10#?: NO Have you had fever, night sweats or hemotysis?: No Have you traveled outside the country in the last 6 months?: No Isolation: Standard ROS - Review of Systems Constitutional: Weakness, Fatigue, Other (SHALLOW BREATHING.). negative: Chills , Fever Eyes: No Symptoms Reported. negative: Eye Pain, Discharge ENTM: No Symptoms Reported. negative: Ear Pain, Nose Discharge, Nose Congestion , Throat Pain Respiratoy: Productive Cough, Short of Breath, Wheezing, Other (SHALLOW BREATHING.). negative: Hemoptysis Cardiovascular: Chest Pain Gastrointestinal/Abdominal: No Symptoms Reported. negative: Abdominal Pain, Diarrhea, Nausea, Vomiting Genitourinary: negative: Dysuria, Hematuria Neurological: Headache, Weakness Musculoskeletal: Muscle Pain Integumentary: Change in Color (BLUISH DISCOLORATION AROUND MOUTH.) Hematologic/Lymphatic: Easy Bruising Endocrine: Flushing, Decreased Appetite All Other Systems: Reviewed and Negative PE - Vital Signs Vitals: Temperature 98.0 F Pulse Rate 73 Respiratory Rate 20 Blood Pressure [Right Arm] 117/54 Blood Pressure 91/44 O2 Sat by Pulse Oximetry 97 - General Limitations: Altered Mental Status General Appearance: Alert - Head Head Exam: Normal Inspection - Eyes Eye exam: PERRL. negative: Scleral Icterus, Conjunctival Injection - ENT ENT Exam: Normal Oropharynx, Normal External Ear Exam, TM's Normal Bilaterally - Neck Neck Exam: Trachea Midline - Chest Chest Inspection: Symmetric Chest Wall Rise - Respiratory Respiratory Exam: Respiratory Distress. negative: Chest Wall Tenderness Respiratory Exam: Bilateral Wheezing, Bilateral Rhonchi, Upper Wheezing, Upper Rhonchi, Lower Wheezing, Lower Rhonchi - Cardiovascular Cardiovascular Exam: Regular Rate, Normal Rhythm, Normal Heart Sounds - Abdominal Exam Abdominal Exam: Normal Bowel Sounds, Soft. negative: Tenderness - Extremities Extremities Exam: Edema (TRACE) - Back Back Exam: Paraspinal Tenderness (LOWER BACK.) - Neurologic Neurological Exam: Alert - Psychiatric Psychiatric Exam: Anxious - Skin Skin Exam: Erythema, Other (BLUISH COLOR AROUND MOUTH.) MDM - Additional Information Obtained Additional Information Obtained From: Family - Differential Diagnosis Differential Diagnosis: CHF, COPD, Mycardial Infarction, Pneumonia, Pneumothorax , Pulmonary embolism, Respiratory Failure Course - Treatment Treatment: SEE ORDERS. PATIENT PLACE ON VENTIMASK AND GAVE NEB TREATMENT. IV FLUID GIVEN. MENTAL ALERTNESS IMPROVING. - Consultation Consultation Comments: DISCUSS PATIENT WITH DR. EUGENE. HE WILL ADMIT PATIENT. - Education/Counseling Education/Counseling: Patient, Family, Education Educated On: Treatment, Diagnosis ROR - Labs Reviewed Laboratory Results Reviewed?: Yes Result Diagrams: 03/29/17 18:20 03/29/17 18:20 - XRAY XRAY Interpreted by: Radiologist XRAY Findings: REPORT DISCUSS WITH PATIENT. - EKG Rhythm: NSR (EKG NOTED.) - Diagnosis Discharge Problem: Respiratory disease, Pulmonary congestion CHF (congestive heart failure) Qualifiers: Congestive heart failure type: combined Congestive heart failure chronicity: acute on chronic Qualified Code(s): I50.43 - Acute on chronic combined systolic (congestive) and diastolic (congestive) heart failure Hypotension Qualifiers: Hypotension type: unspecified hypotension type Qualified Code(s): I95.9 - Hypotension, unspecified - Discharge Plan Disposition: 09 ADMITTED INPATIENT Condition: Stable - Follow ups/Referrals - Instructions
[2017-03-29 18:08] LABS: ABG BASE EXCESS 9.5 mmol/L (-2.0-2.0)
[2017-03-29 18:09] LABS: ABG ALLEN TEST POS; ABG HCO3 35.3 mmol/L (22-26)
[2017-03-29] MEDS ORDERED: NS 1000 ML 1,000 ML IV ONE (18:31)
[2017-03-29] MEDS ORDERED: NS 1000 ML 1,000 ML ONE (18:31)
[2017-03-29 18:36] LABS: BASOPHILS % (AUTO) 0.3 % (0.2-1.0); HEMATOCRIT 33.2 % (36.0-47.0); LYMPHOCYTES # (AUTO) 0.9 X10^3/uL (1.3-2.9); LYMPHOCYTES % (AUTO) 9.3 % (21.0-51.0); MEAN CORPUSCULAR HEMOGLOBIN 29.7 pg (27.0-34.0); MEAN CORPUSCULAR HGB CONC 33.1 g/dL (33.0-35.0); MEAN CORPUSCULAR VOLUME 89.8 fL (80.0-100.0); MEAN PLATELET VOLUME 10.3 fL (7.4-11.0); MONOCYTES # (AUTO) 0.5 x10^3/uL (0.3-0.8); NEUTROPHILS # (AUTO) 8.1 x10^3/uL (2.2-4.8); NEUTROPHILS % (AUTO) 85.4 % (42.0-75.0); PLATELET COUNT 88 X10^3/uL (150.0-450.0); RED CELL DISTRIBUTION WIDTH 15.2 % (11.6-16.5); WHITE BLOOD COUNT 9.5 X10^3/uL (3.6-10.0)
[2017-03-29 18:45] LABS: B-TYPE NATRIURETIC PEPTIDE 165 pg/mL (0-79)
[2017-03-29 18:48] LABS: BLOOD UREA NITROGEN 46 mg/dL (7-18); CALCIUM 8.4 mg/dL (8.5-10.1); CARBON DIOXIDE 34.7 mmol/L (21-32); CHLORIDE 100 mmol/L (98-107); CREATININE 2.46 mg/dL (0.55-1.02); GLUCOSE 100 mg/dL (65-99); SODIUM 136 mmol/L (136-145); TROPONIN I 0.02 ng/mL (0-1.5); eGFR BLACK RACES 25 (>60); eGFR NON BLACK RACES 20 (>60)
[2017-03-29 18:53] LABS: ALANINE AMINOTRANSFERASE 16 Units/L (12-78); ALBUMIN 1.7 g/dL (3.4-5.0); ALKALINE PHOSPHATASE 41 Units/L (46-116); ASPARTATE AMINO TRANSFERASE 18 Units/L (15-37); CKMB % 12.5 % (<4); COR CA(FOR HYPOALB) 10.2 mg/dL (8.5-10.1); CREATINE KINASE 8 Units/L (26-192); CREATINE KINASE MB < 1.0 ng/mL (0-4.0); TOTAL PROTEIN 5.5 g/dL (6.4-8.2)
--- NOTE | 2017-03-29 19:26 | RAD ---
HISTORY: Chest pain, respiratory distress Study: Single view chest Comparison: 03/25/2017 Findings: Single portable view is submitted. The exam is limited by leftward rotation. Chronic sternotomy escalante ges and cardiomegaly are noted. There is stable central pulmonary vascular congestion. Small bilater al pleural effusions are suspected. No pneumothorax identified. There are chronic degenerative escalante ges of the bony thorax. IMPRESSION: 1. Cardiomegaly and stable pulmonary vascular congestion. Small bilateral effusions are suspected. Reported By:
[2017-03-29] MEDS ORDERED: LEVOPHED INJ 8 MG in D5W 250 ML IV 242 ML IV PRN (22:18)
[2017-03-29] MEDS ORDERED: LEVOPHED INJ ONE (22:24)
[2017-03-29] MEDS ORDERED: D5W 250 ML IV 250 ML IV ONE ×2 (22:24→22:59)
[2017-03-29] MEDS ORDERED: VIBRAMYCIN IV ONE (23:00)
[2017-03-29] MEDS: VIBRAMYCIN 100 MG in D5W 250 ML IV 250 ML IV SCH (23:06)
[2017-03-30 00:23] VITALS: BMI 32.8
[2017-03-30] MEDS: DUONEB 0.5 MG/3 MG NEB SCH ×4 (00:23→17:06)
[2017-03-30 05:19] LABS: BASOPHILS % (AUTO) 0.2 % (0.2-1.0); HEMATOCRIT 32.6 % (36.0-47.0); HEMOGLOBIN 10.7 g/dL (12.0-16.0); LYMPHOCYTES # (AUTO) 1.1 X10^3/uL (1.3-2.9); LYMPHOCYTES % (AUTO) 10.1 % (21.0-51.0); MEAN CORPUSCULAR HEMOGLOBIN 29.7 pg (27.0-34.0); MEAN CORPUSCULAR HGB CONC 32.8 g/dL (33.0-35.0); MEAN CORPUSCULAR VOLUME 90.6 fL (80.0-100.0); MEAN PLATELET VOLUME 10.8 fL (7.4-11.0); MONOCYTES # (AUTO) 0.7 x10^3/uL (0.3-0.8); MONOCYTES % (AUTO) 6.2 % (0.0-13.0); NEUTROPHILS # (AUTO) 9.3 x10^3/uL (2.2-4.8); NEUTROPHILS % (AUTO) 83.5 % (42.0-75.0); PLATELET COUNT 108 X10^3/uL (150.0-450.0); RED CELL DISTRIBUTION WIDTH 15.5 % (11.6-16.5); WHITE BLOOD COUNT 11.2 X10^3/uL (3.6-10.0)
[2017-03-30 05:29] LABS: ALBUMIN 1.7 g/dL (3.4-5.0); CALCIUM 8.3 mg/dL (8.5-10.1); CARBON DIOXIDE 30.4 mmol/L (21-32); COR CA(FOR HYPOALB) 10.1 mg/dL (8.5-10.1); CREATININE 2.38 mg/dL (0.55-1.02); MAGNESIUM 2.1 mg/dL (1.7-2.9); TOTAL PROTEIN 5.6 g/dL (6.4-8.2)
[2017-03-30] MEDS ORDERED: NS 1000 ML 1,000 ML ONE ×2 (09:09→09:20)
[2017-03-30] MEDS: BUTT CREAM (COMPOUND) TOP PRN ×2 (09:15→14:17)
[2017-03-30] MEDS ORDERED: NS 1000 ML 1,000 ML IV PRN (09:24)
[2017-03-30] MEDS: VIBRAMYCIN 100 MG in D5W 250 ML IV 250 ML IV SCH ×2 (09:25→20:21)
[2017-03-30] MEDS ORDERED: BUTT CREAM (COMPOUND) ONE (10:03)
[2017-03-30] MEDS ORDERED: NS 1000 ML 1,000 ML IV ONE (10:09)
[2017-03-30] MEDS ORDERED: NORCO 10/325 TAB PO PRN (10:13)
[2017-03-30] MEDS ORDERED: DUONEB 0.5 MG/3 MG NEB SCH (10:15)
--- NOTE | 2017-03-30 12:21 | CT ---
HISTORY: Lower abdominal pain. Study: CT abdomen and pelvis without contrast Comparison: None available. Technique: Multiple axial images of the abdomen and pelvis were obtained from the lung bases to the pubic symph ysis without the administration of IV contrast. Dose reduction techniques including Automated Expos ure Control (AEC) and adjustment of mA and kV were utilized. Findings: Study limited secondary to the lack of IV and oral contrast. Bibasilar scarring versus atelectasis. Small bilateral pleural effusions. Otherwise, the visualized portions of the lung bases are unremarkable. The gallbladder is surgically absent. Cortical thinning of the kidneys likely representing chronic renal disease. Multiple likely vascular calcifications a re seen within the kidneys. 4.3 cm simple appearing cyst within the left inferior renal pole. The li linnea, spleen, pancreas, and adrenal glands are unremarkable in their CT appearance. There appears to be an internal hernia of multiple loops of small bowel within the mid abdomen to the right lower qu adrant. The small bowel is mildly dilated with suggestion of thickened mucosa and air-fluid levels. There appears to be swirling of the mesentery. Marked soft tissue stranding and small amount of free fluid is seen adjacent to these loops of bowel. Large amounts of free air are seen within the abdom en and pelvis. No obvious site for perforation. No pneumatosis intestinalis or portal venous gas. Co lonic diverticulum without obvious diverticulitis. The uterus and ovaries appear surgically absent. The urinary bladder is grossly unremarkable. The osseous structures appear normal for age. IMPRESSION: 1. Suggestion of an internal hernia with multiple loops of small bowel within the mid abdomen to ri ght lower quadrant. The bowel loops are mildly dilated with suggestion of thickened mucosa and air-f luid levels. Question of swirling of mesentery. Large amounts of free air are seen within the abdome n and pelvis consistent with viscus perforation. However, no obvious site for perforation. No pneuma tosis intestinalis or portal venous gas. 2. Other chronic findings as above. Reported By:
[2017-03-30] MEDS: FOLIC ACID TAB 1 MG PO SCH (14:15)
[2017-03-30] MEDS: NEURONTIN CAP 300 MG PO SCH ×3 (14:15→21:15)
[2017-03-30] MEDS: ANTIVERT TAB 25 MG PO SCH ×2 (14:15→20:22)
[2017-03-30] MEDS: ARICEPT TAB 5 MG PO SCH (14:16)
[2017-03-30] MEDS: NS 1000 ML 1,000 ML IV SCH ×3 (14:16→20:21)
[2017-03-30] MEDS: PROTONIX TAB 40 MG PO SCH (14:16)
[2017-03-30] MEDS: ALBUMIN HUMAN 25%- 100ML 100 ML IV SCH (14:16)
--- NOTE | 2017-03-30 16:45 | DR.H&P ---
H&P - History & Physical for Day of: H&P Date: 03/29/17 - Chief Complaint Chief Complaint: cyanosis - Allergies Allergies/Adverse Reactions: Allergies Allergy/AdvReac Type Severity Reaction Status Date / Time Sulfa (Sulfonamide Allergy Verified 03/29/17 21:54 Antibiotics) [SULFA] - History of Present Illness History of Present Illness: Patient is a 76yo female who presented to the emergency room from [facility] with complaints of cyanosis around her mouth and hypotensive. On arrival to the ED Vital signs 98.4, 69, 20, 96 on venture mask, 79/42. Labs are within normal limits with the exception of Hgb 11.0, Hct 33.2, plt count 88, Neut% 85.4, Lymph% 9.3, Eos% 0.0, Neut# 8.1, Lymph # 0.9, Carbon dioxide 34.7, BUN 46, Creatinine 2.46, Est GFR 20, Glucose 100, Calcium 8.4, Alkaline phosphatase 41, Creatinine kinase 8, BNP 165, Total protein 5.5, Albumin 1.7, Albumin/globulin ratio 0.4. ABG within normal limits with the exception pCO2 52.0, pO2 71.0, HCO3 35.3, Base excess 9.5.Chest xray shows cardiomegaly and table pulmonary venous congestion, small bilateral effusions are suspected. EKG shows NSR rate of 70. Patient admitted with diagnosis of Hypotension, respiratory distress and Bronchitis. Patient started on levophed drip, NS @20ml/hr, Doxycyline 100mg IV Q12hr - Past Medical History Past Medical History: Anemia, Anxiety, CHF, COPD, Coronary Artery Disease, Dementia, Depression, Dyslipidemia, GERD, Hypertension, Liver Disease, [place], Renal Disease - Past Surgical History Surgical History: CABG/Valve Surgery, Other - Social History Does patient currently use any type of tobacco product: No Have you used tobacco products in the last 12 months: No Type of Tobacco Use: None Does any household member use tobacco: No Alcohol Use: None Drug Use: None - Medications Home Medications: Gabapentin 300 mg PO TID 03/29/17 [History Confirmed 03/30/17] Ipratropium/Albuterol Nebule [DUONEB 0.5 MG/3 MG NEBULE *] 1 nebule NEB BID [History Confirmed 03/30/17] Tiotropium [place] Monohydrate [SPIRIVA HANDIHALER (30 DOSE) *] 2 inh INH DAILY 03/29/17 [History Confirmed 03/30/17] - Review of Systems Constitutional: No Symptoms Reported Eyes: No Symptoms Reported ENT: No Symptoms Reported Respiratory: Shortness of Breath Cardiovascular: No Symptoms Reported Gastrointestinal: No Symptoms Reported Genitourinary: No Symptoms Reported Musculoskeletal: No Symptoms Reported Skin: No Symptoms Reported Neurological: No Symptoms Reported - Physical Exam Vital Signs: 98.4, 69, 20, 96 on venture mask, 79/42 Oriented: Normal Eyes: Normal Ear: Normal Nose: Normal Throat: Normal Respiratory: Wheezes Throughout Cardiovascular: Other (hypotensive ) : Normal Auscultation: Bowel Sounds: Normal Palpation: Normal Tenderness: Normal Skin: Decreased Turgur Musculoskeletal: Normal Psychiatric: Normal Mood Description: Calm, Appropriate Affect: Normal Speech Pattern: Clear, Appropriate - Assessment/Plan (1) Hypotension Qualifiers: Hypotension type: unspecified hypotension type Trimester: T Qualified Code(s): I95.9 - Hypotension, unspecified Status: Acute Plan: levophed drip (2) Respiratory distress Status: Acute Plan: duoneb, supplemental oxygen
--- NOTE | 2017-03-30 16:47 | PCM.PROG ---
Progress Note - Progress Note for Day of Date: 03/30/17 - Subjective Subjective: Patient is a 76yo male who was admitted with hypotension, respiratory distress and bronchitis. Patient states she is having some abdominal pain this am we are going to get a CT of ab and pelvis to rule out any acute problems. Vital signs this am are 97.8, 66, 21, 97%, 124/31. Labs are within normal limits with the exception of WBC 11.2, Hgb 10.7, Hct 32.6, MCHC 32.8, Plt count 108, Neut% 83.5, Lymph% 10.1, Eos% 0.0, Neut# 9.3, Lymph# 1.1, BUN 46, Creatinine 2.38, Est GFR 21, Glucose 113, Calcium 8.3, Total protein 5.6 , Albumin 1.7, Albumin/globulin ratio 0.4. We are going to start albumin IV daily for hypoalbuminemia, give her NS 1000ml bolus and increase NS to 150ml/hr and order an ECHO. We also are going to resume home medications with the exception of blood pressure medications which we are holding. We will follow up in the am with repeat labs and chest xray. - Past Medical Family Social History Past Med/Fam/Surg Hx: No changes since H&P Allergies: Allergies Sulfa (Sulfonamide Antibiotics) [SULFA] Allergy (Verified 03/29/17 21:54) - Review of Systems ROS: No change since H&P - Vital Signs and I&O's Vital Signs: 97.8, 66, 21, 97%, 124/31 Intake and Output: Intake & Output 03/28/17 03/29/17 03/30/17 03/31/17 11:59 11:59 11:59 11:59 Intake Total 1219 880 Balance 1219 880 - Physical Exam Oriented: Normal Eyes: Normal Ear: Normal Nose: Normal Throat: Normal Respiratory: Wheezes Cardiovascular: Other (hypotensive ) : Normal Auscultation: Bowel Sounds: Normal Tenderness: RLQ, LLQ Skin: Decreased Turgur Musculoskeletal: Normal Psychiatric: Normal Mood Description: Calm, Appropriate Affect: Normal Speech Pattern: Clear, Appropriate - Laboratory and Diagnostics Result Diagrams: 03/30/17 04:40 03/30/17 04:40 Labs: Laboratory WBC 11.2 X10^3/uL (3.6-10.0) H 03/30/17 04:40 RBC 3.60 X10^6/uL (3.5-5.4) 03/30/17 04:40 Hgb 10.7 g/dL (12.0-16.0) L 03/30/17 04:40 Hct 32.6 % (36.0-47.0) L 03/30/17 04:40 MCV 90.6 fL (80.0-100.0) 03/30/17 04:40 MCH 29.7 pg (27.0-34.0) 03/30/17 04:40 MCHC 32.8 g/dL (33.0-35.0) L 03/30/17 04:40 RDW 15.5 % (11.6-16.5) 03/30/17 04:40 Plt Count 108 X10^3/uL (150.0-450.0) L 03/30/17 04:40 MPV 10.8 fL (7.4-11.0) 03/30/17 04:40 Neut % 83.5 % (42.0-75.0) H 03/30/17 04:40 Lymph % 10.1 % (21.0-51.0) L 03/30/17 04:40 [place] % 6.2 % (0.0-13.0) 03/30/17 04:40 Eos % 0.0 % (0.9-2.9) L 03/30/17 04:40 Baso % 0.2 % (0.2-1.0) 03/30/17 04:40 Neut # 9.3 x10^3/uL (2.2-4.8) H 03/30/17 04:40 Lymph # 1.1 X10^3/uL (1.3-2.9) L 03/30/17 04:40 [place] # 0.7 x10^3/uL (0.3-0.8) 03/30/17 04:40 Eos # 0.0 x10^3/uL (0.0-0.2) 03/30/17 04:40 Baso # 0.0 X10^3/uL (0.0-0.1) 03/30/17 04:40 Absolute Nucleated RBC 0.1 /100WBC 03/30/17 04:40 INR Target Range - 03/30/17 04:40 INR 1.17 (0.8-1.3) 03/30/17 04:40 PTT 30.6 SECONDS (22.9-36.5) 03/30/17 04:40 PTT Comment - 03/30/17 04:40 Sample Site Rr 03/29/17 18:00 ABG pH 7.440 (7.35-7.45) 03/29/17 18:00 ABG pCO2 52.0 mmHg (35.0-45.0) H* 03/29/17 18:00 ABG pO2 71.0 mmHg (80.0-100.0) L 03/29/17 18:00 ABG HCO3 35.3 mmol/L (22-26) H* 03/29/17 18:00 ABG O2 Saturation 95.0 % (90-100) 03/29/17 18:00 ABG Base Excess 9.5 mmol/L (-2.0-2.0) H 03/29/17 18:00 Daniel Test Pos 03/29/17 18:00 A-a Gradient 64.0 mmHg 03/29/17 18:00 FiO2 28.000 03/29/17 18:00 Blood Gas Comments Pt favian well. cdn 03/29/17 18:00 Sodium 138 mmol/L (136-145) 03/30/17 04:40 Corrected Sodium 138 mmol/L (136-145) 03/30/17 04:40 Potassium 4.5 mmol/L (3.5-5.1) 03/30/17 04:40 Chloride 102 mmol/L (98-107) 03/30/17 04:40 Carbon Dioxide 30.4 mmol/L (21-32) 03/30/17 04:40 BUN 46 mg/dL (7-18) H 03/30/17 04:40 Creatinine 2.38 mg/dL (0.55-1.02) H 03/30/17 04:40 Est GFR (MDRD) Af Amer 25 (>60) L 03/30/17 04:40 Est GFR (MDRD) Non-Af 21 (>60) L 03/30/17 04:40 Glucose 113 mg/dL (65-99) H 03/30/17 04:40 Calcium 8.3 mg/dL (8.5-10.1) L 03/30/17 04:40 Corrected Calcium 10.1 mg/dL (8.5-10.1) 03/30/17 04:40 Magnesium 2.1 mg/dL (1.7-2.9) 03/30/17 04:40 Total Bilirubin 0.90 mg/dL (0.2-1.0) 03/30/17 04:40 AST 22 Units/L (15-37) 03/30/17 04:40 ALT 17 Units/L (12-78) 03/30/17 04:40 Alkaline Phosphatase 51 Units/L (46-116) 03/30/17 04:40 Creatine Kinase 8 Units/L (26-192) L 03/29/17 18:20 CK-MB (CK-2) < 1.0 ng/mL (0-4.0) 03/29/17 18:20 CK/CKMB % Calc 12.5 % (<4) 03/29/17 18:20 Troponin I 0.02 ng/mL (0-1.5) 03/29/17 18:20 B-Natriuretic Peptide 165 pg/mL (0-79) H 03/29/17 18:20 Total Protein 5.6 g/dL (6.4-8.2) L 03/30/17 04:40 Albumin 1.7 g/dL (3.4-5.0) L 03/30/17 04:40 Globulin 3.9 g/dL (2.5-4.5) 03/30/17 04:40 Albumin/Globulin Ratio 0.4 Ratio (1.1-2.1) L 03/30/17 04:40 - Plan (1) Hypotension Status: Acute Qualifiers: Hypotension type: unspecified hypotension type Trimester: T Qualified Code(s): I95.9 - Hypotension, unspecified Plan: levophed drip (2) Respiratory distress Status: Acute Plan: duoneb, supplemental oxygen (3) Abdominal pain Status: Acute Qualifiers: Abdominal location: A Plan: Abd/pelvis CT (4) CHF (congestive heart failure) Status: Acute Qualifiers: Congestive heart failure type: combined Congestive heart failure chronicity : acute on chronic Qualified Code(s): I50.43 - Acute on chronic combined systolic (congestive) and diastolic (congestive) heart failure Plan: ECHO (5) Hyperlipidemia Status: Chronic Qualifiers: Hyperlipidemia type: H Plan: continue zocor
[2017-03-30] MEDS: ZOCOR TAB 40 MG PO SCH (20:21)
[2017-03-30] MEDS: PITAVASTATIN CALCIUM 2 MG PO SCH (20:26)
[2017-03-30] MEDS: ZOFRAN INJ 4 MG VIAL IVP PRN (21:15)
[2017-03-31] MEDS: DUONEB 0.5 MG/3 MG NEB SCH ×4 (01:41→17:33)
[2017-03-31] MEDS: NS 1000 ML 1,000 ML IV SCH (04:38)
[2017-03-31 04:41] LABS: BASOPHILS % (AUTO) 0.2 % (0.2-1.0); HEMATOCRIT 32.6 % (36.0-47.0); HEMOGLOBIN 10.8 g/dL (12.0-16.0); LYMPHOCYTES # (AUTO) 0.5 X10^3/uL (1.3-2.9); MEAN CORPUSCULAR HEMOGLOBIN 30.3 pg (27.0-34.0); MEAN CORPUSCULAR HGB CONC 33.1 g/dL (33.0-35.0); MEAN CORPUSCULAR VOLUME 91.4 fL (80.0-100.0); MEAN PLATELET VOLUME 10.4 fL (7.4-11.0); MONOCYTES # (AUTO) 0.5 x10^3/uL (0.3-0.8); MONOCYTES % (AUTO) 7.1 % (0.0-13.0); NEUTROPHILS # (AUTO) 5.6 x10^3/uL (2.2-4.8); NEUTROPHILS % (AUTO) 84.7 % (42.0-75.0); PLATELET COUNT 95 X10^3/uL (150.0-450.0); RED BLOOD COUNT 3.56 X10^6/uL (3.5-5.4); RED CELL DISTRIBUTION WIDTH 15.3 % (11.6-16.5); WHITE BLOOD COUNT 6.7 X10^3/uL (3.6-10.0)
[2017-03-31 04:52] LABS: ALANINE AMINOTRANSFERASE 15 Units/L (12-78); ALBUMIN 1.9 g/dL (3.4-5.0); ALKALINE PHOSPHATASE 44 Units/L (46-116); ASPARTATE AMINO TRANSFERASE 17 Units/L (15-37); BLOOD UREA NITROGEN 34 mg/dL (7-18); CARBON DIOXIDE 28.7 mmol/L (21-32); CHLORIDE 102 mmol/L (98-107); COR CA(FOR HYPOALB) 9.7 mg/dL (8.5-10.1); CREATININE 1.78 mg/dL (0.55-1.02); GLUCOSE 82 mg/dL (65-99); SODIUM 137 mmol/L (136-145); TOTAL PROTEIN 5.5 g/dL (6.4-8.2); eGFR BLACK RACES 36 (>60); eGFR NON BLACK RACES 29 (>60)
[2017-03-31] MEDS: NEURONTIN CAP 300 MG PO SCH ×2 (05:39→14:49)
[2017-03-31] MEDS: ZOFRAN INJ 4 MG VIAL IVP PRN (07:03)
--- NOTE | 2017-03-31 07:26 | RAD ---
HISTORY: Respiratory distress Study: Single view of the chest Comparison: March 29, 2017 Findings: The patient is rotated. The cardiac silhouette is enlarged with mild central pulmonary vascular con gestion. Small bilateral pleural effusions are again demonstrated left greater than right. The ao rtic knob is partially calcified. Postoperative changes of midline sternotomy are noted. IMPRESSION: 1. Cardiomegaly with mild central pulmonary vascular congestion and bilateral pleural effusions. Reported By:
[2017-03-31] MEDS ORDERED: PREDNISONE TAB 10 MG PO SCH (09:00)
[2017-03-31] MEDS: ANTIVERT TAB 25 MG PO SCH (09:01)
[2017-03-31] MEDS: ARICEPT TAB 5 MG PO SCH (09:01)
[2017-03-31] MEDS: FOLIC ACID TAB 1 MG PO SCH (09:01)
[2017-03-31] MEDS: VIBRAMYCIN 100 MG in D5W 250 ML IV 250 ML IV SCH (09:01)
[2017-03-31] MEDS: PROTONIX TAB 40 MG PO SCH (09:01)
[2017-03-31] MEDS: ALBUMIN HUMAN 25%- 100ML 100 ML IV SCH (09:02)
[2017-03-31] MEDS ORDERED: NS 1000 ML 1,000 ML IV SCH (10:00)
[2017-03-31] MEDS ORDERED: PEPCID 20 MG IV PREMIX* 20 MG/50 ML BAG IV SCH (10:00)
--- NOTE | 2017-03-31 10:16 | PCM.PROG ---
Progress Note - Progress Note for Day of Date: 03/31/17 - Subjective Subjective: Patient is awake in bed this am and is feeling better but is still having lower abdominal pain, her abdomen is noted to be distended. Vital signs this am are 98.4, 68, 24, 94% NC, 126/42. Her levophed drip was discontinued last night at 1849 and her blood pressure has remain stable. Labs this am are within normal limits with the exception of Hgb 10.8, Hct 32.6, Plt Cont 95, Neut % 84.7, Lymph% 8.0, Eos% 0.0, Neut# 5.6, Lymph# 0.5, BUN 34, Creatinine 1.78, Est GFR 29, Calcium 8.0, Alkaline phosphatase 44, Total protein 5.5, Albumin 1.9 , Albumin/globulin ratio 0.5. We will continue her on albumin IV daily for hypoalbuminemia. Chest xray this am shows cardiomegaly with mild central pulmonary vascular congestion and bilateral pleural effusions. Abdominal CT shows Suggestion of internal hernia with multiple loops of small bowel within the mid abdomen to right lower quadrant, the bowel loops are midly dilated with suggestion of thickened mucosa and air-fluid levels, question of swirling mesentery, large amounts of free air are seen within the abd/pelvis consistent with viscus perforation. We are starting her on pronoix 40mg IV BID and Pepcid 20mg IV Q12hr and also decreased her fluids to KVO We are going to consult Dr. Trammell and follow up with patient in the am with repeat labs. - Past Medical Family Social History Past Med/Fam/Surg Hx: No changes since H&P Allergies: Allergies Sulfa (Sulfonamide Antibiotics) [SULFA] Allergy (Verified 03/29/17 21:54) - Review of Systems ROS: No change since H&P - Vital Signs and I&O's Vital Signs: 98.4, 68, 24, 94% NC, 126/42 Intake and Output: Intake & Output 03/28/17 03/29/17 03/30/17 03/31/17 11:59 11:59 11:59 11:59 Intake Total 1219 3139 Balance 1219 3139 - Physical Exam Oriented: Normal Eyes: Normal Ear: Normal Nose: Normal Throat: Normal Respiratory: Wheezes, Rhonchi Cardiovascular: Other (hypotensive ) : Normal Auscultation: Bowel Sounds: Normal Palpation: Other (distention) Tenderness: RLQ, LLQ Skin: Decreased Turgur Musculoskeletal: Normal Psychiatric: Normal Mood Description: Calm, Appropriate Affect: Normal Speech Pattern: Clear, Appropriate - Laboratory and Diagnostics Result Diagrams: 03/31/17 03:55 03/31/17 03:55 Labs: Laboratory WBC 6.7 X10^3/uL (3.6-10.0) 03/31/17 03:55 RBC 3.56 X10^6/uL (3.5-5.4) 03/31/17 03:55 Hgb 10.8 g/dL (12.0-16.0) L 03/31/17 03:55 Hct 32.6 % (36.0-47.0) L 03/31/17 03:55 MCV 91.4 fL (80.0-100.0) 03/31/17 03:55 MCH 30.3 pg (27.0-34.0) 03/31/17 03:55 MCHC 33.1 g/dL (33.0-35.0) 03/31/17 03:55 RDW 15.3 % (11.6-16.5) 03/31/17 03:55 Plt Count 95 X10^3/uL (150.0-450.0) L 03/31/17 03:55 MPV 10.4 fL (7.4-11.0) 03/31/17 03:55 Neut % 84.7 % (42.0-75.0) H 03/31/17 03:55 Lymph % 8.0 % (21.0-51.0) L 03/31/17 03:55 [place] % 7.1 % (0.0-13.0) 03/31/17 03:55 Eos % 0.0 % (0.9-2.9) L 03/31/17 03:55 Baso % 0.2 % (0.2-1.0) 03/31/17 03:55 Neut # 5.6 x10^3/uL (2.2-4.8) H 03/31/17 03:55 Lymph # 0.5 X10^3/uL (1.3-2.9) L 03/31/17 03:55 [place] # 0.5 x10^3/uL (0.3-0.8) 03/31/17 03:55 Eos # 0.0 x10^3/uL (0.0-0.2) 03/31/17 03:55 Baso # 0.0 X10^3/uL (0.0-0.1) 03/31/17 03:55 Absolute Nucleated RBC 0.0 /100WBC 03/31/17 03:55 INR Target Range - 03/30/17 04:40 INR 1.17 (0.8-1.3) 03/30/17 04:40 PTT 30.6 SECONDS (22.9-36.5) 03/30/17 04:40 PTT Comment - 03/30/17 04:40 Sample Site Rr 03/29/17 18:00 ABG pH 7.440 (7.35-7.45) 03/29/17 18:00 ABG pCO2 52.0 mmHg (35.0-45.0) H* 03/29/17 18:00 ABG pO2 71.0 mmHg (80.0-100.0) L 03/29/17 18:00 ABG HCO3 35.3 mmol/L (22-26) H* 03/29/17 18:00 ABG O2 Saturation 95.0 % (90-100) 03/29/17 18:00 ABG Base Excess 9.5 mmol/L (-2.0-2.0) H 03/29/17 18:00 Daniel Test Pos 03/29/17 18:00 A-a Gradient 64.0 mmHg 03/29/17 18:00 FiO2 28.000 03/29/17 18:00 Blood Gas Comments Pt favian well. cdn 03/29/17 18:00 Sodium 137 mmol/L (136-145) 03/31/17 03:55 Corrected Sodium TNP 03/31/17 03:55 Potassium 4.2 mmol/L (3.5-5.1) 03/31/17 03:55 Chloride 102 mmol/L (98-107) 03/31/17 03:55 Carbon Dioxide 28.7 mmol/L (21-32) 03/31/17 03:55 BUN 34 mg/dL (7-18) H 03/31/17 03:55 Creatinine 1.78 mg/dL (0.55-1.02) H 03/31/17 03:55 Est GFR (MDRD) Af Amer 36 (>60) L 03/31/17 03:55 Est GFR (MDRD) Non-Af 29 (>60) L 03/31/17 03:55 Glucose 82 mg/dL (65-99) 03/31/17 03:55 Calcium 8.0 mg/dL (8.5-10.1) L 03/31/17 03:55 Corrected Calcium 9.7 mg/dL (8.5-10.1) 03/31/17 03:55 Magnesium 2.1 mg/dL (1.7-2.9) 03/30/17 04:40 Total Bilirubin 0.70 mg/dL (0.2-1.0) 03/31/17 03:55 AST 17 Units/L (15-37) 03/31/17 03:55 ALT 15 Units/L (12-78) 03/31/17 03:55 Alkaline Phosphatase 44 Units/L (46-116) L 03/31/17 03:55 Creatine Kinase 8 Units/L (26-192) L 03/29/17 18:20 CK-MB (CK-2) < 1.0 ng/mL (0-4.0) 03/29/17 18:20 CK/CKMB % Calc 12.5 % (<4) 03/29/17 18:20 Troponin I 0.02 ng/mL (0-1.5) 03/29/17 18:20 B-Natriuretic Peptide 165 pg/mL (0-79) H 03/29/17 18:20 Total Protein 5.5 g/dL (6.4-8.2) L 03/31/17 03:55 Albumin 1.9 g/dL (3.4-5.0) L 03/31/17 03:55 Globulin 3.6 g/dL (2.5-4.5) 03/31/17 03:55 Albumin/Globulin Ratio 0.5 Ratio (1.1-2.1) L 03/31/17 03:55 - Plan (1) Respiratory distress Status: Acute Plan: duoneb, supplemental oxygen (2) Abdominal pain Status: Acute Qualifiers: Abdominal location: A Plan: consult quintin (3) CHF (congestive heart failure) Status: Acute Qualifiers: Congestive heart failure type: combined Congestive heart failure chronicity : acute on chronic Qualified Code(s): I50.43 - Acute on chronic combined systolic (congestive) and diastolic (congestive) heart failure Plan: ECHO (4) Hyperlipidemia Status: Chronic Qualifiers: Hyperlipidemia type: H Plan: continue zocor
[2017-03-31] MEDS: PROTONIX INJ 40 MG VIAL IVP SCH (11:10)
[2017-03-31] MEDS ORDERED: LR 1000 ML IV 1,000 ML IV ONE (20:19)
[2017-03-31] MEDS ORDERED: NS 50 ML IV + SPIKE MINIBAG* 50 ML IV ONE (20:19)
[2017-03-31] MEDS ORDERED: ANCEF VIAL 1 GM ONE (20:19)
[2017-03-31] MEDS: FENTANYL INJ 250 mcg ONE ×2 (21:00→21:10)
[2017-03-31] MEDS ORDERED: NS 500 ML IV 1,000 ML IV ONE (21:05)
[2017-03-31] MEDS ORDERED: LEVOPHED INJ ONE (21:06)
[2017-03-31] MEDS ORDERED: NS IRRIGATION 1000 ML 1,000 ML IR ONE ×3 (22:00→23:20)
[2017-03-31 22:40] LABS: BILIRUBIN,URINE NEGATIVE (NEGATIVE); BLOOD/HEMOGLOBIN,URINE 3+ (NEGATIVE); GLUCOSE, URINE NEGATIVE (NEGATIVE); KETONES,URINE NEGATIVE (NEGATIVE); LEUKOCYTE ESTERASE ,URINE 1+ (NEGATIVE); NITRITES,URINE NEGATIVE (NEGATIVE); PROTEIN,URINE 3+ (NEGATIVE); UROBILINOGEN,URINE NORMAL (NORMAL)
[2017-03-31 22:54] LABS: APPEARANCE,URINE SLIGHTLY HAZY (CLEAR); BACTERIA,URINE 2+ /HPF (NEGATIVE); COLOR,URINE YELLOW (YELLOW); SQUAMOUS EPITHELIAL CELL,UR MODERATE /HPF (NEGATIVE)
[2017-03-31 22:55] LABS: AMORPHOUS SEDIMENT,UR 4+ /HPF (NEGATIVE); MUCUS,URINE MODERATE /HPF (NEGATIVE); YEAST,URINE MANY /HPF (NEGATIVE)
[2017-03-31] MEDS ORDERED: NS 1000 ML 1,000 ML ONE (23:46)
[2017-04-01] MEDS: DUONEB 0.5 MG/3 MG NEB SCH (00:30)
[2017-04-01] MEDS ORDERED: ZOFRAN INJ 4 MG VIAL IVP PRN ×2 (01:04→01:57)
--- NOTE | 2017-04-01 01:29 | RAD ---
EXAM: Chest X-ray INDICATION: Line placement COMPARISION: Prior exam from March 31, 2017 TECHNIQUE: Single view FINDINGS: Right central venous catheter tip is in the superior vena cava . Nasogastric tube tip is in the stom ach. There is a small left pleural effusion and volume loss in left lung base. No pneumothorax. The cardiac silhouette is mildly enlarged and there central vascular congestion. The regional skeleton is intact. Sternotomy wires and mediastinal clips are present. IMPRESSION: There is mild cardiomegaly and central vascular congestion. There is a small left pleural effusion a nd volume loss in the left lower lobe. Reported By:
[2017-04-01] MEDS ORDERED: HumuLIN R SUBCUT PRN (01:57)
[2017-04-01] MEDS ORDERED: FLAGYL IV PREMIX 500 MG BAG 500 MG/100 ML BAG IV ONE (02:06)
[2017-04-01] MEDS: FLAGYL IV PREMIX 500 MG BAG 500 MG/100 ML BAG IV SCH ×3 (02:12→18:34)
[2017-04-01] MEDS: ZOCOR TAB 40 MG PO SCH (02:13)
[2017-04-01] MEDS: ANTIVERT TAB 25 MG PO SCH (02:13)
[2017-04-01] MEDS: NEURONTIN CAP 300 MG PO SCH (02:14)
[2017-04-01] MEDS: VIBRAMYCIN 100 MG in D5W 250 ML IV 250 ML IV SCH (02:14)
[2017-04-01] MEDS: PROTONIX INJ 40 MG VIAL IVP SCH ×2 (02:14→18:34)
[2017-04-01] MEDS: PITAVASTATIN CALCIUM 2 MG PO SCH (02:14)
[2017-04-01 05:27] LABS: ABG BASE EXCESS 0.8 mmol/L (-2.0-2.0); ABG HCO3 22.2 mmol/L (22-26)
[2017-04-01 05:42] LABS: ALANINE AMINOTRANSFERASE 17 Units/L (12-78); ALBUMIN 1.7 g/dL (3.4-5.0); ALKALINE PHOSPHATASE 37 Units/L (46-116); ASPARTATE AMINO TRANSFERASE 21 Units/L (15-37); BLOOD UREA NITROGEN 32 mg/dL (7-18); CALCIUM 7.7 mg/dL (8.5-10.1); CARBON DIOXIDE 23.3 mmol/L (21-32); CHLORIDE 108 mmol/L (98-107); COR CA(FOR HYPOALB) 9.5 mg/dL (8.5-10.1); CREATININE 1.56 mg/dL (0.55-1.02); GLUCOSE 110 mg/dL (65-99); SODIUM 137 mmol/L (136-145); TOTAL PROTEIN 4.4 g/dL (6.4-8.2); eGFR BLACK RACES 41 (>60); eGFR NON BLACK RACES 34 (>60)
[2017-04-01 06:42] LABS: BASOPHILS % (AUTO) 0.1 % (0.2-1.0); LYMPHOCYTES # (AUTO) 0.8 X10^3/uL (1.3-2.9); LYMPHOCYTES % (AUTO) 3.7 % (21.0-51.0); MEAN CORPUSCULAR HEMOGLOBIN 29.6 pg (27.0-34.0); MEAN CORPUSCULAR HGB CONC 32.3 g/dL (33.0-35.0); MEAN CORPUSCULAR VOLUME 91.6 fL (80.0-100.0); MEAN PLATELET VOLUME 9.8 fL (7.4-11.0); NEUTROPHILS # (AUTO) 19.4 x10^3/uL (2.2-4.8); NEUTROPHILS % (AUTO) 87.2 % (42.0-75.0); PLATELET COUNT 125 X10^3/uL (150.0-450.0); RED BLOOD COUNT 3.71 X10^6/uL (3.5-5.4); RED CELL DISTRIBUTION WIDTH 14.8 % (11.6-16.5)
[2017-04-01 06:50] LABS: WHITE BLOOD COUNT 22.3 X10^3/uL (3.6-10.0)
[2017-04-01 07:10] LABS: BAND NEUTROPHILS % 10 % (0-10); PLATELET MORPHOLOGY COMMENT NORMAL (NORMAL)
[2017-04-01] MEDS: CIPRO IV 400 MG PREMIX* 400 MG/200 ML IV.SOLN. IV SCH ×2 (08:30→21:08)
[2017-04-01] MEDS ORDERED: ALBUMIN HUMAN 25%- 100ML 100 ML IV ONE (09:57)
[2017-04-01] MEDS ORDERED: PHARMACY CONSULT - TPN XX SCH (10:00)
[2017-04-01] MEDS: MORPHINE SULFATE INJ 2 MG IVP PRN (11:20)
[2017-04-01] MEDS: PROCALAMINE 3 % 1,000 ML IV SCH (11:48)
[2017-04-01] MEDS: ALBUMIN HUMAN 25%- 100ML 100 ML IV SCH (11:48)
[2017-04-01] MEDS: NS 1000 ML 1,000 ML IV SCH (12:47)
[2017-04-01] MEDS ORDERED: NS 500 ML IV 500 ML IV ONE (16:51)
[2017-04-01] MEDS: HEPARIN SODIUM INJ 5000 UNITS SC SCH (18:34)
[2017-04-01] MEDS: SNACK - Diabetic Appropriate PO SCH (21:25)
[2017-04-02] MEDS: SNACK - Diabetic Appropriate PO SCH ×2 (01:42→21:09)
[2017-04-02] MEDS: HEPARIN SODIUM INJ 5000 UNITS SC SCH ×3 (01:51→17:56)
[2017-04-02] MEDS: MORPHINE SULFATE INJ 2 MG IVP PRN ×2 (03:22→10:10)
[2017-04-02] MEDS: FLAGYL IV PREMIX 500 MG BAG 500 MG/100 ML BAG IV SCH ×3 (03:22→17:57)
[2017-04-02 06:16] LABS: BASOPHILS % (AUTO) 0.1 % (0.2-1.0); HEMOGLOBIN 8.4 g/dL (12.0-16.0); LYMPHOCYTES # (AUTO) 0.5 X10^3/uL (1.3-2.9); LYMPHOCYTES % (AUTO) 3.9 % (21.0-51.0); MEAN CORPUSCULAR HEMOGLOBIN 31.7 pg (27.0-34.0); MEAN CORPUSCULAR HGB CONC 33.7 g/dL (33.0-35.0); MEAN PLATELET VOLUME 10.2 fL (7.4-11.0); MONOCYTES # (AUTO) 1.2 x10^3/uL (0.3-0.8); MONOCYTES % (AUTO) 9.8 % (0.0-13.0); NEUTROPHILS # (AUTO) 10.1 x10^3/uL (2.2-4.8); NEUTROPHILS % (AUTO) 86.2 % (42.0-75.0); PLATELET COUNT 110 X10^3/uL (150.0-450.0); RED BLOOD COUNT 2.65 X10^6/uL (3.5-5.4); RED CELL DISTRIBUTION WIDTH 14.6 % (11.6-16.5); WHITE BLOOD COUNT 11.7 X10^3/uL (3.6-10.0)
[2017-04-02 06:23] LABS: ALANINE AMINOTRANSFERASE 12 Units/L (12-78); ALKALINE PHOSPHATASE 29 Units/L (46-116); ASPARTATE AMINO TRANSFERASE 14 Units/L (15-37); BLOOD UREA NITROGEN 34 mg/dL (7-18); CALCIUM 7.9 mg/dL (8.5-10.1); CARBON DIOXIDE 27.2 mmol/L (21-32); CHLORIDE 107 mmol/L (98-107); COR CA(FOR HYPOALB) 9.5 mg/dL (8.5-10.1); GLUCOSE 87 mg/dL (65-99); SODIUM 141 mmol/L (136-145); TOTAL PROTEIN 4.6 g/dL (6.4-8.2); eGFR BLACK RACES 38 (>60); eGFR NON BLACK RACES 31 (>60)
[2017-04-02] MEDS: ALBUMIN HUMAN 25%- 100ML 100 ML IV SCH (09:10)
[2017-04-02] MEDS: CIPRO IV 400 MG PREMIX* 400 MG/200 ML IV.SOLN. IV SCH ×2 (09:10→21:15)
[2017-04-02] MEDS ORDERED: NORCO 5/325 MG TAB PO PRN (11:27)
--- NOTE | 2017-04-02 11:54 | RAD ---
HISTORY: Shortness of breath. Study: Portable chest. Comparison: Portable chest dated April 01, 2017. Findings: Stable appearance of a right central line and nasogastric tube. The cardiac silhouette appears uncha nged. No obvious pneumothorax. Lung aeration appears unchanged given technique. The osseous structur es are unchanged. IMPRESSION: No significant change. Reported By:
[2017-04-02] MEDS: PROCALAMINE 3 % 1,000 ML IV SCH (12:00)
[2017-04-02] MEDS: NS 1000 ML 1,000 ML IV SCH (12:01)
--- NOTE | 2017-04-02 15:25 | PCM.PROG ---
Progress Note - Progress Note for Day of Date: 04/02/17 - Subjective Subjective: patient is a 76-year-old white female, patient of Dr. Garcias, admitted with respiratory distress, patient was noted to have abdominal pain on admission. Patient suffered a viscus perforation status post repair per Dr. Trammell. Patient currently has NG tube to low intermittent suction, abdominal wound with dressing clean and dry. Patient has positive bowel sounds 4 patient reports passing some gas this a.m. Patient is hemodynamically stable this a.m. we will continue to monitor daily labs, follow surgeon's plan of care and continue with IV antibiotics and respiratory therapy - Past Medical Family Social History Past Med/Fam/Surg Hx: No changes since H&P Allergies: Allergies Sulfa (Sulfonamide Antibiotics) [SULFA] Allergy (Verified 03/29/17 21:54) - Review of Systems ROS: No change since H&P - Vital Signs and I&O's Vital Signs: Temperature 98.3 F Pulse Rate [Right Brachial] 78 Pulse Rate 86 Respiratory Rate 22 Blood Pressure [Left Arm] 123/39 Blood Pressure [Right Arm] 134/48 Blood Pressure 127/57 O2 Sat by Pulse Oximetry 100 Intake and Output: Intake & Output 03/31/17 04/01/17 04/02/17 04/03/17 11:59 11:59 11:59 11:59 Intake Total 3139 1344 2568 Output Total 3860 220 1135 Balance -721 1124 1433 - Physical Exam Oriented: Normal Eyes: Normal Ear: Normal Nose: Normal Throat: Normal Respiratory: Wheezes, Rhonchi Cardiovascular: Other (hypotensive ) : Normal Auscultation: Bowel Sounds: Normal Tenderness: Diffuse Skin: Decreased Turgur, Wound (abdominal wound, clean intact dressing) Musculoskeletal: Normal Psychiatric: Normal Mood Description: Calm Affect: Normal Speech Pattern: Clear, Appropriate - Laboratory and Diagnostics Result Diagrams: 04/02/17 05:00 04/02/17 05:00 Labs: 04/01/17 00:11 Abdomen - Preliminary 03/31/17 21:58 Urine,Catheterized Urine Culture - Final Laboratory WBC 11.7 X10^3/uL (3.6-10.0) H 04/02/17 05:00 RBC 2.65 X10^6/uL (3.5-5.4) L 04/02/17 05:00 Hgb 8.4 g/dL (12.0-16.0) L 04/02/17 05:00 Hct 25.0 % (36.0-47.0) L 04/02/17 05:00 MCV 94.0 fL (80.0-100.0) 04/02/17 05:00 MCH 31.7 pg (27.0-34.0) 04/02/17 05:00 MCHC 33.7 g/dL (33.0-35.0) 04/02/17 05:00 RDW 14.6 % (11.6-16.5) 04/02/17 05:00 Plt Count 110 X10^3/uL (150.0-450.0) L 04/02/17 05:00 Plt Count Comment Decreased (ADEQUATE) A 04/01/17 06:30 MPV 10.2 fL (7.4-11.0) 04/02/17 05:00 Neut % 86.2 % (42.0-75.0) H 04/02/17 05:00 Lymph % 3.9 % (21.0-51.0) L 04/02/17 05:00 [place] % 9.8 % (0.0-13.0) 04/02/17 05:00 Eos % 0.0 % (0.9-2.9) L 04/02/17 05:00 Baso % 0.1 % (0.2-1.0) L 04/02/17 05:00 Neut # 10.1 x10^3/uL (2.2-4.8) H 04/02/17 05:00 Lymph # 0.5 X10^3/uL (1.3-2.9) L 04/02/17 05:00 [place] # 1.2 x10^3/uL (0.3-0.8) H 04/02/17 05:00 Eos # 0.0 x10^3/uL (0.0-0.2) 04/02/17 05:00 Baso # 0.0 X10^3/uL (0.0-0.1) 04/02/17 05:00 Absolute Nucleated RBC 0.0 /100WBC 04/02/17 05:00 Total Counted 100 04/01/17 06:30 Neutrophils % (Manual) 76 % (39-76) 04/01/17 06:30 Band Neutrophils % 10 % (0-10) 04/01/17 06:30 Lymphocytes % (Manual) 10 % (13-43) L 04/01/17 06:30 Monocytes % (Manual) 4 % (4-9) 04/01/17 06:30 Plt Morphology Comment Normal (NORMAL) 04/01/17 06:30 RBC Morphology Normal (NORMAL) 04/01/17 06:30 INR Target Range - 04/02/17 10:23 INR 1.51 (0.8-1.3) H 04/02/17 10:23 PTT 46.8 SECONDS (22.9-36.5) H 04/02/17 10:23 PTT Comment - 04/02/17 10:23 Sample Site Rb 04/01/17 05:19 ABG pH 7.540 (7.35-7.45) H 04/01/17 05:19 ABG pCO2 26.0 mmHg (35.0-45.0) L 04/01/17 05:19 ABG pO2 188.0 mmHg (80.0-100.0) H 04/01/17 05:19 ABG HCO3 22.2 mmol/L (22-26) 04/01/17 05:19 ABG O2 Saturation 100.0 % (90-100) 04/01/17 05:19 ABG Base Excess 0.8 mmol/L (-2.0-2.0) 04/01/17 05:19 Daniel Test Na 04/01/17 05:19 A-a Gradient -7.0 mmHg 04/01/17 05:19 FiO2 30.000 04/01/17 05:19 Blood Gas Comments [place]g well-mtf 04/01/17 05:19 Sodium 141 mmol/L (136-145) 04/02/17 05:00 Corrected Sodium TNP 04/02/17 05:00 Potassium 4.7 mmol/L (3.5-5.1) 04/02/17 05:00 Chloride 107 mmol/L (98-107) 04/02/17 05:00 Carbon Dioxide 27.2 mmol/L (21-32) 04/02/17 05:00 BUN 34 mg/dL (7-18) H 04/02/17 05:00 Creatinine 1.70 mg/dL (0.55-1.02) H 04/02/17 05:00 Est GFR (MDRD) Af Amer 38 (>60) L 04/02/17 05:00 Est GFR (MDRD) Non-Af 31 (>60) L 04/02/17 05:00 Glucose 87 mg/dL (65-99) 04/02/17 05:00 Calcium 7.9 mg/dL (8.5-10.1) L 04/02/17 05:00 Corrected Calcium 9.5 mg/dL (8.5-10.1) 04/02/17 05:00 Magnesium 2.1 mg/dL (1.7-2.9) 03/30/17 04:40 Total Bilirubin 0.60 mg/dL (0.2-1.0) 04/02/17 05:00 AST 14 Units/L (15-37) L 04/02/17 05:00 ALT 12 Units/L (12-78) 04/02/17 05:00 Alkaline Phosphatase 29 Units/L (46-116) L 04/02/17 05:00 Creatine Kinase 8 Units/L (26-192) L 03/29/17 18:20 CK-MB (CK-2) < 1.0 ng/mL (0-4.0) 03/29/17 18:20 CK/CKMB % Calc 12.5 % (<4) 03/29/17 18:20 Troponin I 0.02 ng/mL (0-1.5) 03/29/17 18:20 B-Natriuretic Peptide 165 pg/mL (0-79) H 03/29/17 18:20 Total Protein 4.6 g/dL (6.4-8.2) L 04/02/17 05:00 Albumin 2.0 g/dL (3.4-5.0) L 04/02/17 05:00 Globulin 2.6 g/dL (2.5-4.5) 04/02/17 05:00 Albumin/Globulin Ratio 0.8 Ratio (1.1-2.1) L 04/02/17 05:00 Specimen Type Catherized urine 03/31/17 21:58 Urine Color Yellow (YELLOW) 03/31/17 21:58 Urine Appearance Slightly hazy (CLEAR) 03/31/17 21:58 Urine pH 6.0 (5.0 - 8.0) 03/31/17 21:58 Ur Specific [place] 1.030 (1.000-1.030) 03/31/17 21:58 Urine Protein 3+ (NEGATIVE) 03/31/17 21:58 Urine Glucose (UA) Negative (NEGATIVE) 03/31/17 21:58 Urine Ketones Negative (NEGATIVE) 03/31/17 21:58 Urine Occult Blood 3+ (NEGATIVE) 03/31/17 21:58 Urine Nitrite Negative (NEGATIVE) 03/31/17 21:58 Urine Bilirubin Negative (NEGATIVE) 03/31/17 21:58 Urine Urobilinogen Normal (NORMAL) 03/31/17 21:58 Ur Leukocyte Esterase 1+ (NEGATIVE) 03/31/17 21:58 Urine RBC 10-15 /HPF (NEGATIVE) 03/31/17 21:58 Urine WBC 20-30 /HPF (NEGATIVE) 03/31/17 21:58 Ur Squamous Epith Cells Moderate /HPF (NEGATIVE) 03/31/17 21:58 Amorphous Sediment 4+ /HPF (NEGATIVE) 03/31/17 21:58 Urine Bacteria 2+ /HPF (NEGATIVE) 03/31/17 21:58 Urine Mucus Moderate /HPF (NEGATIVE) 03/31/17 21:58 Urine Yeast Many /HPF (NEGATIVE) 03/31/17 21:58 Ur Culture Indicated? Yes/culture set up 03/31/17 21:58 Tissue Pathology To follow 04/01/17 00:11 Blood Type O POSITIVE 03/31/17 21:02 Antibody Screen Positive 03/31/17 21:02 Antibody Identification Anti-P1 03/31/17 21:02 Crossmatch See Detail 03/31/17 21:02 - Plan (1) Perforated abdominal viscus Status: Acute Plan: s/p repair, NG TUBE, NPO, FOLLOW POST OPERATIVE PLAN OF CARE. AM LABS, BP MONITORING. PAIN AND NAUSEA CONTROL, WOUND CARE (2) CHF (congestive heart failure) Status: Acute Qualifiers: Congestive heart failure type: combined Congestive heart failure chronicity : acute on chronic Qualified Code(s): I50.43 - Acute on chronic combined systolic (congestive) and diastolic (congestive) heart failure Plan: BB, I &OS, HIGHTOWER, AM CXR (3) Pulmonary congestion Status: Acute (4) Coronary artery disease Status: Chronic Qualifiers: Coronary Disease-Associated Artery/Lesion type: C [place] vs. transplanted heart: N Associated angina: A (5) Hypertension Status: Chronic Qualifiers: Hypertension type: H (6) Pneumonia Status: Acute Qualifiers: Pneumonia type: due to unspecified organism Aspiration pneumonia type: A Laterality: left Lung location: lower lobe of lung Qualified Code(s): J18.1 - Lobar pneumonia, unspecified organism Plan: CONTINUE RESP THERAPY, AM CXR
[2017-04-02] MEDS: PROTONIX INJ 40 MG VIAL IVP SCH (16:11)
[2017-04-02] MEDS: VISTARIL PO PRN (21:16)
[2017-04-03] MEDS: HEPARIN SODIUM INJ 5000 UNITS SC SCH ×3 (01:50→16:51)
[2017-04-03] MEDS: FLAGYL IV PREMIX 500 MG BAG 500 MG/100 ML BAG IV SCH ×3 (01:58→19:10)
[2017-04-03 06:11] LABS: BASOPHILS % (AUTO) 0.1 % (0.2-1.0); HEMOGLOBIN 8.4 g/dL (12.0-16.0); LYMPHOCYTES # (AUTO) 0.4 X10^3/uL (1.3-2.9); LYMPHOCYTES % (AUTO) 4.4 % (21.0-51.0); MEAN CORPUSCULAR HEMOGLOBIN 32.1 pg (27.0-34.0); MEAN CORPUSCULAR HGB CONC 33.6 g/dL (33.0-35.0); MEAN CORPUSCULAR VOLUME 95.5 fL (80.0-100.0); MEAN PLATELET VOLUME 10.1 fL (7.4-11.0); MONOCYTES # (AUTO) 0.9 x10^3/uL (0.3-0.8); MONOCYTES % (AUTO) 9.8 % (0.0-13.0); NEUTROPHILS # (AUTO) 7.6 x10^3/uL (2.2-4.8); NEUTROPHILS % (AUTO) 85.7 % (42.0-75.0); PLATELET COUNT 127 X10^3/uL (150.0-450.0); RED BLOOD COUNT 2.61 X10^6/uL (3.5-5.4); WHITE BLOOD COUNT 8.9 X10^3/uL (3.6-10.0)
[2017-04-03 06:35] LABS: ALANINE AMINOTRANSFERASE 15 Units/L (12-78); ALKALINE PHOSPHATASE 42 Units/L (46-116); ASPARTATE AMINO TRANSFERASE 18 Units/L (15-37); BLOOD UREA NITROGEN 35 mg/dL (7-18); CALCIUM 8.2 mg/dL (8.5-10.1); CARBON DIOXIDE 25.7 mmol/L (21-32); CHLORIDE 107 mmol/L (98-107); COR CA(FOR HYPOALB) 9.8 mg/dL (8.5-10.1); CREATININE 1.48 mg/dL (0.55-1.02); GLUCOSE 84 mg/dL (65-99); SODIUM 140 mmol/L (136-145); TOTAL PROTEIN 4.8 g/dL (6.4-8.2); eGFR BLACK RACES 44 (>60); eGFR NON BLACK RACES 36 (>60)
--- NOTE | 2017-04-03 08:02 | RAD ---
HISTORY: Respiratory distress. Study: Single-view chest. Comparison: April 02, 2017. Findings: The trachea is midline. There is a right IJ CVL with tip projecting over the mid SVC. There has been previous median sternotomy and CABG . The cardiac silhouette is grossly unchanged . There are bibas ilar pleural parenchymal opacities likely reflecting small pleural effusions and associated airspace disease. There is no pneumothorax. IMPRESSION: Bibasilar pleural parenchymal opacities likely reflecting small pleural effusions and associated air space disease. Reported By:
[2017-04-03] MEDS: CIPRO IV 400 MG PREMIX* 400 MG/200 ML IV.SOLN. IV SCH ×2 (08:27→21:05)
[2017-04-03] MEDS: ALBUMIN HUMAN 25%- 100ML 100 ML IV SCH (08:27)
[2017-04-03] MEDS: VISTARIL PO PRN (08:27)
[2017-04-03] MEDS: PROCALAMINE 3 % 1,000 ML IV SCH (12:05)
[2017-04-03] MEDS: PROTONIX TAB 40 MG PO SCH (12:05)
[2017-04-03] MEDS ORDERED: BENADRYL CAP/TAB 25 MG PO ONE (16:37)
[2017-04-03] MEDS ORDERED: TYLENOL 325 MG TAB PO ONE (16:39)
[2017-04-03] MEDS ORDERED: NS 500 ML IV 500 ML IV ONE ×2 (17:21→22:29)
[2017-04-03] MEDS ORDERED: LASIX IVP ONE (21:12)
[2017-04-04] MEDS: HEPARIN SODIUM INJ 5000 UNITS SC SCH ×3 (02:11→16:54)
[2017-04-04] MEDS: FLAGYL IV PREMIX 500 MG BAG 500 MG/100 ML BAG IV SCH ×4 (02:18→17:29)
[2017-04-04] MEDS: NORCO 5/325 MG TAB PO PRN ×2 (05:38→16:53)
[2017-04-04 06:19] LABS: BASOPHILS % (AUTO) 0.2 % (0.2-1.0); HEMATOCRIT 30.6 % (36.0-47.0); HEMOGLOBIN 10.3 g/dL (12.0-16.0); LYMPHOCYTES # (AUTO) 0.4 X10^3/uL (1.3-2.9); LYMPHOCYTES % (AUTO) 7.2 % (21.0-51.0); MEAN CORPUSCULAR HEMOGLOBIN 31.3 pg (27.0-34.0); MEAN CORPUSCULAR HGB CONC 33.5 g/dL (33.0-35.0); MEAN CORPUSCULAR VOLUME 93.3 fL (80.0-100.0); MEAN PLATELET VOLUME 9.5 fL (7.4-11.0); MONOCYTES # (AUTO) 0.7 x10^3/uL (0.3-0.8); MONOCYTES % (AUTO) 11.5 % (0.0-13.0); NEUTROPHILS % (AUTO) 81.1 % (42.0-75.0); PLATELET COUNT 139 X10^3/uL (150.0-450.0); RED BLOOD COUNT 3.28 X10^6/uL (3.5-5.4); RED CELL DISTRIBUTION WIDTH 15.2 % (11.6-16.5); WHITE BLOOD COUNT 6.1 X10^3/uL (3.6-10.0)
[2017-04-04] MEDS: NS 1000 ML 1,000 ML IV SCH ×2 (08:02→11:03)
[2017-04-04] MEDS: ALBUMIN HUMAN 25%- 100ML 100 ML IV SCH (08:40)
[2017-04-04] MEDS: PROTONIX TAB 40 MG PO SCH (08:40)
[2017-04-04] MEDS: CIPRO IV 400 MG PREMIX* 400 MG/200 ML IV.SOLN. IV SCH ×2 (08:41→20:56)
[2017-04-04] MEDS: MORPHINE SULFATE INJ 2 MG IVP PRN (09:27)
[2017-04-04 09:34] LABS: ALANINE AMINOTRANSFERASE 15 Units/L (12-78); ALBUMIN 2.2 g/dL (3.4-5.0); ALKALINE PHOSPHATASE 53 Units/L (46-116); ASPARTATE AMINO TRANSFERASE 19 Units/L (15-37); BLOOD UREA NITROGEN 36 mg/dL (7-18); CALCIUM 8.1 mg/dL (8.5-10.1); CARBON DIOXIDE 23.9 mmol/L (21-32); CHLORIDE 106 mmol/L (98-107); COR CA(FOR HYPOALB) 9.5 mg/dL (8.5-10.1); GLUCOSE 80 mg/dL (65-99); MAGNESIUM 1.8 mg/dL (1.7-2.9); SODIUM 139 mmol/L (136-145); TOTAL PROTEIN 5.3 g/dL (6.4-8.2); eGFR BLACK RACES 43 (>60); eGFR NON BLACK RACES 36 (>60)
[2017-04-04] MEDS ORDERED: MIRALAX POWDER (1 DOSE 17GM) PO ONE (11:37)
--- NOTE | 2017-04-04 14:52 | RAD ---
HISTORY: Shortness of breath Study: Single-view chest Comparison: April 03, 2017 Findings: The trachea is midline. The cardiac silhouette is stable as are changes from previous CABG procedur e. A right-sided central line is in stable position.. The lungs demonstrate persistent small effusi ons with bibasilar infiltrates.. The bony thorax is unremarkable. IMPRESSION: 1. Stable chest. Reported By:
[2017-04-04] MEDS: PROCALAMINE 3 % 1,000 ML IV SCH (17:01)
[2017-04-05] MEDS: HEPARIN SODIUM INJ 5000 UNITS SC SCH ×3 (01:22→17:06)
[2017-04-05] MEDS: NORCO 5/325 MG TAB PO PRN (01:23)
[2017-04-05] MEDS: FLAGYL IV PREMIX 500 MG BAG 500 MG/100 ML BAG IV SCH ×4 (02:24→17:06)
[2017-04-05 06:18] LABS: ALANINE AMINOTRANSFERASE 11 Units/L (12-78); ALBUMIN 2.3 g/dL (3.4-5.0); ALKALINE PHOSPHATASE 73 Units/L (46-116); ASPARTATE AMINO TRANSFERASE 15 Units/L (15-37); BLOOD UREA NITROGEN 34 mg/dL (7-18); CALCIUM 8.3 mg/dL (8.5-10.1); CARBON DIOXIDE 28.2 mmol/L (21-32); CHLORIDE 107 mmol/L (98-107); COR CA(FOR HYPOALB) 9.7 mg/dL (8.5-10.1); CREATININE 1.36 mg/dL (0.55-1.02); GLUCOSE 89 mg/dL (65-99); SODIUM 139 mmol/L (136-145); TOTAL PROTEIN 5.1 g/dL (6.4-8.2); eGFR BLACK RACES 49 (>60); eGFR NON BLACK RACES 40 (>60)
[2017-04-05 06:19] LABS: BASOPHILS % (AUTO) 0.3 % (0.2-1.0); HEMOGLOBIN 10.1 g/dL (12.0-16.0); LYMPHOCYTES # (AUTO) 0.4 X10^3/uL (1.3-2.9); LYMPHOCYTES % (AUTO) 7.8 % (21.0-51.0); MEAN CORPUSCULAR HEMOGLOBIN 31.7 pg (27.0-34.0); MEAN CORPUSCULAR HGB CONC 33.6 g/dL (33.0-35.0); MEAN CORPUSCULAR VOLUME 94.5 fL (80.0-100.0); MEAN PLATELET VOLUME 9.3 fL (7.4-11.0); MONOCYTES # (AUTO) 0.6 x10^3/uL (0.3-0.8); MONOCYTES % (AUTO) 12.1 % (0.0-13.0); NEUTROPHILS # (AUTO) 3.8 x10^3/uL (2.2-4.8); NEUTROPHILS % (AUTO) 79.8 % (42.0-75.0); PLATELET COUNT 134 X10^3/uL (150.0-450.0); RED BLOOD COUNT 3.18 X10^6/uL (3.5-5.4); RED CELL DISTRIBUTION WIDTH 15.4 % (11.6-16.5); WHITE BLOOD COUNT 4.8 X10^3/uL (3.6-10.0)
[2017-04-05] MEDS: PROTONIX TAB 40 MG PO SCH (08:08)
[2017-04-05] MEDS: ALBUMIN HUMAN 25%- 100ML 100 ML IV SCH (08:08)
[2017-04-05] MEDS: CIPRO IV 400 MG PREMIX* 400 MG/200 ML IV.SOLN. IV SCH ×2 (08:08→20:38)
[2017-04-05] MEDS ORDERED: MIRALAX POWDER (1 DOSE 17GM) PO PRN (11:28)
--- NOTE | 2017-04-05 12:00 | RAD ---
HISTORY: Shortness of breath. Study: Portable chest. Comparison: Chest x-ray dated April 04, 2017. Findings: Right IJ line appears unchanged. Postsurgical changes status post CABG. Cardiomegaly is unchanged. I ncreased prominence of the perihilar vasculature with cephalization of vessels and diffuse alveolar/ interstitial markings. Increase in size of bilateral small pleural effusions. No obvious pneumothora x or focal consolidation. The osseous structures appear unchanged. IMPRESSION: Worsening lung aeration likely secondary to pulmonary edema from congestive heart failur e. Underlying infiltrate not entirely excluded. Reported By:
[2017-04-05] MEDS: NS 1000 ML 1,000 ML IV SCH (14:10)
[2017-04-05] MEDS ORDERED: LASIX IVP ONE (14:55)
--- NOTE | 2017-04-05 15:42 | PCM.PROG ---
Progress Note - Progress Note for Day of Date: 04/01/17 - Subjective Subjective: Patient is a 76yo female who was admitted with diagnosis of hypotension and resp distress. Dr. Trammell was consulted and arrived last night and took her to surgery. Patient underwent an exploratory laparotomy, where he found pneumoperitoneum. Patient is very drowsy in bed with NG tube inplace, ALISHA Drain noted as well. Patient also has central line noted to right juglar and indwelling herzog catherter in place. We are going to consult pharmacy to start total parental nutrition. We will also continue albumin IV. Vital signs this am 98.0, 72, 27, 98%, 121/50. Labs this am are within normal limits with the exception of WBC 11.7, RBC 2.65, Hgb 11.0, Hct 25.0, Plt count 125, Neut% 86.2, Lymph% 3.9, Eos% 0.0, Baso% 0.1, Neut# 10.1, Lymph# 0.5, [place]# 1.2, INR 1.51, PTT 46.8, BUN 34, Creatinine 1.70, Est GFR 31, Calcium 7.9, AST 14, Alkaline Phosphatase 29, Total Protein 4.6, Albumin 2.0, Albumin/globulin ratio 0.8. Chest xray this am shows mild cardiomegaly and central vascular congestion small left pleural effusion and volume loss in the left lower lobe. We will follow up with patient in am. - Past Medical Family Social History Past Med/Fam/Surg Hx: No changes since H&P Allergies: Allergies Sulfa (Sulfonamide Antibiotics) [SULFA] Allergy (Verified 03/29/17 21:54) - Review of Systems ROS: No change since H&P - Vital Signs and I&O's Vital Signs: Temperature 97.7 F Pulse Rate [Right Brachial] 76 Pulse Rate 70 Respiratory Rate 27 Blood Pressure [Left Arm] 123/39 Blood Pressure [Right Arm] 121/45 Blood Pressure 127/57 O2 Sat by Pulse Oximetry 100 Intake and Output: Intake & Output 04/03/17 04/04/17 04/05/17 04/06/17 11:59 11:59 11:59 11:59 Intake Total 1966 2660 1335 810 Output Total 1625 1875 1415 550 Balance 341 785 -80 260 - Physical Exam Oriented: Normal Eyes: Normal Ear: Normal Nose: Normal Throat: Normal Respiratory: Wheezes, Rhonchi Cardiovascular: Other (hypotensive ) : Normal Auscultation: Bowel Sounds: Other (patient with NG tube in place) Tenderness: Diffuse Skin: Decreased Turgur, Wound (abdominal wound, clean intact dressing, ALISHA Drain) Musculoskeletal: Normal Psychiatric: Normal Mood Description: Calm Affect: Normal Speech Pattern: Clear - Laboratory and Diagnostics Result Diagrams: 04/05/17 04:55 04/05/17 04:55 Labs: 04/01/17 00:11 Abdomen - Final Enterococcus Faecalis 03/31/17 21:58 Urine,Catheterized Urine Culture - Final Laboratory WBC 4.8 X10^3/uL (3.6-10.0) 04/05/17 04:55 RBC 3.18 X10^6/uL (3.5-5.4) L 04/05/17 04:55 Hgb 10.1 g/dL (12.0-16.0) L 04/05/17 04:55 Hct 30.0 % (36.0-47.0) L 04/05/17 04:55 MCV 94.5 fL (80.0-100.0) 04/05/17 04:55 MCH 31.7 pg (27.0-34.0) 04/05/17 04:55 MCHC 33.6 g/dL (33.0-35.0) 04/05/17 04:55 RDW 15.4 % (11.6-16.5) 04/05/17 04:55 Plt Count 134 X10^3/uL (150.0-450.0) L 04/05/17 04:55 Plt Count Comment Decreased (ADEQUATE) A 04/01/17 06:30 MPV 9.3 fL (7.4-11.0) 04/05/17 04:55 Neut % 79.8 % (42.0-75.0) H 04/05/17 04:55 Lymph % 7.8 % (21.0-51.0) L 04/05/17 04:55 [place] % 12.1 % (0.0-13.0) 04/05/17 04:55 Eos % 0.0 % (0.9-2.9) L 04/05/17 04:55 Baso % 0.3 % (0.2-1.0) 04/05/17 04:55 Neut # 3.8 x10^3/uL (2.2-4.8) 04/05/17 04:55 Lymph # 0.4 X10^3/uL (1.3-2.9) L 04/05/17 04:55 [place] # 0.6 x10^3/uL (0.3-0.8) 04/05/17 04:55 Eos # 0.0 x10^3/uL (0.0-0.2) 04/05/17 04:55 Baso # 0.0 X10^3/uL (0.0-0.1) 04/05/17 04:55 Absolute Nucleated RBC 0.0 /100WBC 04/05/17 04:55 Total Counted 100 04/01/17 06:30 Neutrophils % (Manual) 76 % (39-76) 04/01/17 06:30 Band Neutrophils % 10 % (0-10) 04/01/17 06:30 Lymphocytes % (Manual) 10 % (13-43) L 04/01/17 06:30 Monocytes % (Manual) 4 % (4-9) 04/01/17 06:30 Plt Morphology Comment Normal (NORMAL) 04/01/17 06:30 RBC Morphology Normal (NORMAL) 04/01/17 06:30 INR Target Range - 04/02/17 10:23 INR 1.51 (0.8-1.3) H 04/02/17 10:23 PTT 46.8 SECONDS (22.9-36.5) H 04/02/17 10:23 PTT Comment - 04/02/17 10:23 Sample Site Rbra 04/01/17 05:19 ABG pH 7.540 (7.35-7.45) H 04/01/17 05:19 ABG pCO2 26.0 mmHg (35.0-45.0) L 04/01/17 05:19 ABG pO2 188.0 mmHg (80.0-100.0) H 04/01/17 05:19 ABG HCO3 22.2 mmol/L (22-26) 04/01/17 05:19 ABG O2 Saturation 100.0 % (90-100) 04/01/17 05:19 ABG Base Excess 0.8 mmol/L (-2.0-2.0) 04/01/17 05:19 Daniel Test Na 04/01/17 05:19 A-a Gradient -7.0 mmHg 04/01/17 05:19 FiO2 30.000 04/01/17 05:19 Blood Gas Comments [place] abg well-mtf 04/01/17 05:19 Sodium 139 mmol/L (136-145) 04/05/17 04:55 Corrected Sodium TNP 04/05/17 04:55 Potassium 4.5 mmol/L (3.5-5.1) 04/05/17 04:55 Chloride 107 mmol/L (98-107) 04/05/17 04:55 Carbon Dioxide 28.2 mmol/L (21-32) 04/05/17 04:55 BUN 34 mg/dL (7-18) H 04/05/17 04:55 Creatinine 1.36 mg/dL (0.55-1.02) H 04/05/17 04:55 Est GFR (MDRD) Af Amer 49 (>60) L 04/05/17 04:55 Est GFR (MDRD) Non-Af 40 (>60) L 04/05/17 04:55 Glucose 89 mg/dL (65-99) 04/05/17 04:55 Calcium 8.3 mg/dL (8.5-10.1) L 04/05/17 04:55 Corrected Calcium 9.7 mg/dL (8.5-10.1) 04/05/17 04:55 Magnesium 1.8 mg/dL (1.7-2.9) 04/04/17 05:30 Total Bilirubin 0.60 mg/dL (0.2-1.0) 04/05/17 04:55 AST 15 Units/L (15-37) 04/05/17 04:55 ALT 11 Units/L (12-78) L 04/05/17 04:55 Alkaline Phosphatase 73 Units/L (46-116) 04/05/17 04:55 Creatine Kinase 8 Units/L (26-192) L 03/29/17 18:20 CK-MB (CK-2) < 1.0 ng/mL (0-4.0) 03/29/17 18:20 CK/CKMB % Calc 12.5 % (<4) 03/29/17 18:20 Troponin I 0.02 ng/mL (0-1.5) 03/29/17 18:20 B-Natriuretic Peptide 165 pg/mL (0-79) H 03/29/17 18:20 Total Protein 5.1 g/dL (6.4-8.2) L 04/05/17 04:55 Albumin 2.3 g/dL (3.4-5.0) L 04/05/17 04:55 Globulin 2.8 g/dL (2.5-4.5) 04/05/17 04:55 Albumin/Globulin Ratio 0.8 Ratio (1.1-2.1) L 04/05/17 04:55 Specimen Type Catherized urine 03/31/17 21:58 Urine Color Yellow (YELLOW) 03/31/17 21:58 Urine Appearance Slightly hazy (CLEAR) 03/31/17 21:58 Urine pH 6.0 (5.0 - 8.0) 03/31/17 21:58 Ur Specific [place] 1.030 (1.000-1.030) 03/31/17 21:58 Urine Protein 3+ (NEGATIVE) 03/31/17 21:58 Urine Glucose (UA) Negative (NEGATIVE) 03/31/17 21:58 Urine Ketones Negative (NEGATIVE) 03/31/17 21:58 Urine Occult Blood 3+ (NEGATIVE) 03/31/17 21:58 Urine Nitrite Negative (NEGATIVE) 03/31/17 21:58 Urine Bilirubin Negative (NEGATIVE) 03/31/17 21:58 Urine Urobilinogen Normal (NORMAL) 03/31/17 21:58 Ur Leukocyte Esterase 1+ (NEGATIVE) 03/31/17 21:58 Urine RBC 10-15 /HPF (NEGATIVE) 03/31/17 21:58 Urine WBC 20-30 /HPF (NEGATIVE) 03/31/17 21:58 Ur Squamous Epith Cells Moderate /HPF (NEGATIVE) 03/31/17 21:58 Amorphous Sediment 4+ /HPF (NEGATIVE) 03/31/17 21:58 Urine Bacteria 2+ /HPF (NEGATIVE) 03/31/17 21:58 Urine Mucus Moderate /HPF (NEGATIVE) 03/31/17 21:58 Urine Yeast Many /HPF (NEGATIVE) 03/31/17 21:58 Ur Culture Indicated? Yes/culture set up 03/31/17 21:58 Tissue Pathology To follow 04/01/17 00:11 Blood Type O POSITIVE 03/31/17 21:02 Antibody Screen Positive 03/31/17 21:02 Antibody Identification Anti-P1 03/31/17 21:02 Crossmatch See Detail 03/31/17 21:02 - Plan (1) Respiratory distress Status: Acute Plan: duoneb, supplemental oxygen (2) CHF (congestive heart failure) Status: Acute Qualifiers: Congestive heart failure type: combined Congestive heart failure chronicity : acute on chronic Qualified Code(s): I50.43 - Acute on chronic combined systolic (congestive) and diastolic (congestive) heart failure Plan: BB, I &OS, CELESTE HERZOG CXR (3) Hyperlipidemia Status: Chronic Qualifiers: Hyperlipidemia type: H Plan: continue zocor
[2017-04-05] MEDS: PROCALAMINE 3 % 1,000 ML IV SCH (17:00)
[2017-04-05] MEDS ORDERED: DULCOLAX SUPPOSITORY 10 MG RECTAL ONE (19:30)
[2017-04-05] MEDS: VISTARIL PO PRN (21:25)
[2017-04-06] MEDS: HEPARIN SODIUM INJ 5000 UNITS SC SCH ×3 (02:11→17:40)
[2017-04-06] MEDS: FLAGYL IV PREMIX 500 MG BAG 500 MG/100 ML BAG IV SCH ×3 (02:11→17:59)
[2017-04-06] MEDS: NORCO 5/325 MG TAB PO PRN (02:45)
[2017-04-06 06:03] LABS: ALANINE AMINOTRANSFERASE 14 Units/L (12-78); ALBUMIN 2.4 g/dL (3.4-5.0); ALKALINE PHOSPHATASE 97 Units/L (46-116); ASPARTATE AMINO TRANSFERASE 19 Units/L (15-37); BLOOD UREA NITROGEN 34 mg/dL (7-18); CALCIUM 8.1 mg/dL (8.5-10.1); CARBON DIOXIDE 30.5 mmol/L (21-32); CHLORIDE 105 mmol/L (98-107); COR CA(FOR HYPOALB) 9.4 mg/dL (8.5-10.1); CREATININE 1.35 mg/dL (0.55-1.02); GLUCOSE 96 mg/dL (65-99); SODIUM 138 mmol/L (136-145); TOTAL PROTEIN 5.3 g/dL (6.4-8.2); eGFR BLACK RACES 49 (>60); eGFR NON BLACK RACES 41 (>60)
[2017-04-06 06:18] LABS: BASOPHILS % (AUTO) 0.1 % (0.2-1.0); HEMATOCRIT 30.2 % (36.0-47.0); HEMOGLOBIN 10.1 g/dL (12.0-16.0); LYMPHOCYTES # (AUTO) 0.4 X10^3/uL (1.3-2.9); LYMPHOCYTES % (AUTO) 7.9 % (21.0-51.0); MEAN CORPUSCULAR HEMOGLOBIN 31.1 pg (27.0-34.0); MEAN CORPUSCULAR HGB CONC 33.5 g/dL (33.0-35.0); MEAN CORPUSCULAR VOLUME 92.9 fL (80.0-100.0); MEAN PLATELET VOLUME 9.4 fL (7.4-11.0); MONOCYTES # (AUTO) 0.6 x10^3/uL (0.3-0.8); MONOCYTES % (AUTO) 11.7 % (0.0-13.0); NEUTROPHILS # (AUTO) 4.1 x10^3/uL (2.2-4.8); NEUTROPHILS % (AUTO) 80.3 % (42.0-75.0); PLATELET COUNT 144 X10^3/uL (150.0-450.0); RED BLOOD COUNT 3.26 X10^6/uL (3.5-5.4); RED CELL DISTRIBUTION WIDTH 14.9 % (11.6-16.5); WHITE BLOOD COUNT 5.1 X10^3/uL (3.6-10.0)
[2017-04-06] MEDS: ALBUMIN HUMAN 25%- 100ML 100 ML IV SCH (09:12)
[2017-04-06] MEDS: CIPRO IV 400 MG PREMIX* 400 MG/200 ML IV.SOLN. IV SCH ×2 (09:13→20:25)
[2017-04-06] MEDS: PROTONIX TAB 40 MG PO SCH (09:13)
[2017-04-06] MEDS ORDERED: LASIX IVP ONE (09:52)
[2017-04-06] MEDS: NS 1000 ML 1,000 ML IV SCH (10:06)
[2017-04-06] MEDS: VISTARIL PO PRN (11:43)
--- NOTE | 2017-04-06 16:19 | RAD ---
Chest, one view Indication: Shortness of breath Comparison: 04/05/2017 Findings: Stable cardiac silhouette enlargement and changes of previous CABG. Stable positioning of the right jugular CVL. Basilar predominant parenchymal opacities persist, with slightly improved rig ht lung base aeration. Small bilateral pleural effusions. No pneumothorax identified. Impression: Slightly improved aeration of the right lung base. Otherwise no significant change from prior. Reported By:
[2017-04-06] MEDS ORDERED: LASIX ONE (17:16)
[2017-04-06] MEDS: LASIX IVP SCH ×2 (17:57→21:42)
[2017-04-06] MEDS: MORPHINE SULFATE INJ 2 MG IVP PRN (20:25)
[2017-04-07] MEDS: VISTARIL PO PRN ×2 (00:14→17:03)
[2017-04-07] MEDS: HEPARIN SODIUM INJ 5000 UNITS SC SCH ×3 (02:05→17:32)
[2017-04-07] MEDS: FLAGYL IV PREMIX 500 MG BAG 500 MG/100 ML BAG IV SCH ×2 (02:05→11:26)
[2017-04-07 06:17] LABS: BASOPHILS % (AUTO) 0.3 % (0.2-1.0); HEMATOCRIT 30.6 % (36.0-47.0); HEMOGLOBIN 10.3 g/dL (12.0-16.0); LYMPHOCYTES # (AUTO) 0.4 X10^3/uL (1.3-2.9); LYMPHOCYTES % (AUTO) 9.2 % (21.0-51.0); MEAN CORPUSCULAR HEMOGLOBIN 31.5 pg (27.0-34.0); MEAN CORPUSCULAR HGB CONC 33.8 g/dL (33.0-35.0); MEAN PLATELET VOLUME 9.4 fL (7.4-11.0); MONOCYTES # (AUTO) 0.6 x10^3/uL (0.3-0.8); MONOCYTES % (AUTO) 11.6 % (0.0-13.0); NEUTROPHILS # (AUTO) 3.8 x10^3/uL (2.2-4.8); NEUTROPHILS % (AUTO) 78.9 % (42.0-75.0); PLATELET COUNT 134 X10^3/uL (150.0-450.0); RED BLOOD COUNT 3.28 X10^6/uL (3.5-5.4); RED CELL DISTRIBUTION WIDTH 14.7 % (11.6-16.5); WHITE BLOOD COUNT 4.8 X10^3/uL (3.6-10.0)
--- NOTE | 2017-04-07 06:17 | RAD ---
HISTORY: Follow up congestive heart failure Study: Chest one view Comparison: April 06, 2017, April 05, 2017 Findings: The patient is status post median sternotomy and CABG. There is a right IJ line in good position. Th e heart remains mildly enlarged. Mild pulmonary venous congestion is present. No with interstitial o r alveolar edema is present. Slight increasing density is present in the lower lobes bilaterally lik madeline developing subsegmental atelectasis. No definite residual pleural effusions are identified. No a lveolar infiltrate are identified. The bony thorax is unremarkable. IMPRESSION: Cardiomegaly with pulmonary venous congestion, unchanged Increasing density in the lung bases bile likely some developing subsegmental atelectasis Reported By:
[2017-04-07 06:27] LABS: ALANINE AMINOTRANSFERASE 15 Units/L (12-78); ALBUMIN 2.8 g/dL (3.4-5.0); ALKALINE PHOSPHATASE 90 Units/L (46-116); ASPARTATE AMINO TRANSFERASE 24 Units/L (15-37); BLOOD UREA NITROGEN 35 mg/dL (7-18); CALCIUM 8.3 mg/dL (8.5-10.1); CARBON DIOXIDE 32.2 mmol/L (21-32); CHLORIDE 106 mmol/L (98-107); COR CA(FOR HYPOALB) 9.3 mg/dL (8.5-10.1); CREATININE 1.44 mg/dL (0.55-1.02); GLUCOSE 86 mg/dL (65-99); SODIUM 143 mmol/L (136-145); TOTAL PROTEIN 5.5 g/dL (6.4-8.2); eGFR BLACK RACES 46 (>60); eGFR NON BLACK RACES 38 (>60)
[2017-04-07] MEDS: ALBUMIN HUMAN 25%- 100ML 100 ML IV SCH (08:58)
[2017-04-07] MEDS: CIPRO IV 400 MG PREMIX* 400 MG/200 ML IV.SOLN. IV SCH (08:58)
[2017-04-07] MEDS: PROTONIX TAB 40 MG PO SCH (08:59)
[2017-04-07] MEDS: LASIX IVP SCH ×2 (08:59→20:51)
[2017-04-07] MEDS: NS 1000 ML 1,000 ML IV SCH (09:03)
[2017-04-07] MEDS ORDERED: PHARMACY CONSULT - VANCOMYCIN XX SCH (10:16)
[2017-04-07] MEDS: DUONEB 0.5 MG/3 MG NEB SCH ×4 (11:15→20:01)
[2017-04-07] MEDS: VANCOMYCIN 1 GM PREMIX (ADDVANTAGE) 250 ML IV SCH ×2 (11:27→20:50)
[2017-04-07] MEDS: COLACE CAP 100 MG PO SCH ×2 (11:27→20:51)
--- NOTE | 2017-04-07 11:28 | PCM.PROG ---
Progress Note - Subjective Subjective: Patient is a 76yo female who was admitted with diagnosis of hypotension and resp distress. Patient underwent an exploratory laparotomy on where pneumoperitoneum was found. Patient is alert and oriented on rounds. Patient is sitting up in chair. Patient complains of some shortness of breath and abdominal pain. Wheezing and rhonchi noted on auscultation. Herzog and ALISHA Drain noted as well with minimal drainage. Patient also has central line noted to right juglar and indwelling herzog catherter in place. Staff reports that patient has not had a bowel movement since surgery and that patient is not eating well. Vital signs this am 97.6, 83, 26, 98%, 130/60. Labs this am are within normal limits with the exception of Hgb 10.3, Hct 30.6, Plt count 134, Neut% 78.9, Lymph% 9.2, Eos% 0.0, Lymph# 0.4, INR 1.58, PTT 41.2, CARBON DIOXIDE 32.2, BUN 35, Creatinine 1.44, Est GFR 38, Calcium 8.3, Total Protein 5.5, Albumin 2.8, Albumin/globulin ratio 1.0. Chest xray this am shows mild cardiomegaly and central vascular congestion and increasing density in the lung bases likely some developing sub segmental atelectasis. We will start neb treatments this am and change miralax to a scheduled dose. We will follow up with patient in am. - Past Medical Family Social History Past Med/Fam/Surg Hx: No changes since H&P Allergies: Allergies Sulfa (Sulfonamide Antibiotics) [SULFA] Allergy (Verified 03/29/17 21:54) - Review of Systems ROS: No change since H&P - Vital Signs and I&O's Vital Signs: Temperature 97.6 F Pulse Rate [Right Brachial] 83 Pulse Rate 81 Respiratory Rate 26 Blood Pressure [Left Arm] 123/39 Blood Pressure [Right Arm] 130/60 Blood Pressure 127/57 O2 Sat by Pulse Oximetry 98 Intake and Output: Intake & Output 04/04/17 04/05/17 04/06/17 04/07/17 11:59 11:59 11:59 11:59 Intake Total 2660 1335 2165 1322 Output Total 1875 1415 1952 2120 Balance 785 -80 213 -798 - Physical Exam Oriented: Normal Eyes: Normal Ear: Normal Nose: Normal Throat: Normal Respiratory: Wheezes, Rhonchi Cardiovascular: Other (hypotensive ) : Normal Auscultation: Bowel Sounds: Decreased, Other (patient with NG tube in place) Palpation: Normal Tenderness: Diffuse Skin: Decreased Turgur, Wound (abdominal wound, clean intact dressing, ALISHA Drain) Musculoskeletal: Normal, Instability Psychiatric: Normal Mood Description: Calm Affect: Normal Speech Pattern: Clear, Appropriate - Laboratory and Diagnostics Result Diagrams: 04/07/17 04:05 04/07/17 04:05 Labs: 04/01/17 00:11 Abdomen - Final Enterococcus Faecalis 03/31/17 21:58 Urine,Catheterized Urine Culture - Final Laboratory WBC 4.8 X10^3/uL (3.6-10.0) 04/07/17 04:05 RBC 3.28 X10^6/uL (3.5-5.4) L 04/07/17 04:05 Hgb 10.3 g/dL (12.0-16.0) L 04/07/17 04:05 Hct 30.6 % (36.0-47.0) L 04/07/17 04:05 MCV 93.0 fL (80.0-100.0) 04/07/17 04:05 MCH 31.5 pg (27.0-34.0) 04/07/17 04:05 MCHC 33.8 g/dL (33.0-35.0) 04/07/17 04:05 RDW 14.7 % (11.6-16.5) 04/07/17 04:05 Plt Count 134 X10^3/uL (150.0-450.0) L 04/07/17 04:05 Plt Count Comment Decreased (ADEQUATE) A 04/01/17 06:30 MPV 9.4 fL (7.4-11.0) 04/07/17 04:05 Neut % 78.9 % (42.0-75.0) H 04/07/17 04:05 Lymph % 9.2 % (21.0-51.0) L 04/07/17 04:05 [place] % 11.6 % (0.0-13.0) 04/07/17 04:05 Eos % 0.0 % (0.9-2.9) L 04/07/17 04:05 Baso % 0.3 % (0.2-1.0) 04/07/17 04:05 Neut # 3.8 x10^3/uL (2.2-4.8) 04/07/17 04:05 Lymph # 0.4 X10^3/uL (1.3-2.9) L 04/07/17 04:05 [place] # 0.6 x10^3/uL (0.3-0.8) 04/07/17 04:05 Eos # 0.0 x10^3/uL (0.0-0.2) 04/07/17 04:05 Baso # 0.0 X10^3/uL (0.0-0.1) 04/07/17 04:05 Absolute Nucleated RBC 0.1 /100WBC 04/07/17 04:05 Total Counted 100 04/01/17 06:30 Neutrophils % (Manual) 76 % (39-76) 04/01/17 06:30 Band Neutrophils % 10 % (0-10) 04/01/17 06:30 Lymphocytes % (Manual) 10 % (13-43) L 04/01/17 06:30 Monocytes % (Manual) 4 % (4-9) 04/01/17 06:30 Plt Morphology Comment Normal (NORMAL) 04/01/17 06:30 RBC Morphology Normal (NORMAL) 04/01/17 06:30 INR Target Range - 04/07/17 04:05 INR 1.58 (0.8-1.3) H 04/07/17 04:05 PTT 41.2 SECONDS (22.9-36.5) H 04/07/17 04:05 PTT Comment - 04/07/17 04:05 Sample Site Rbra 04/01/17 05:19 ABG pH 7.540 (7.35-7.45) H 04/01/17 05:19 ABG pCO2 26.0 mmHg (35.0-45.0) L 04/01/17 05:19 ABG pO2 188.0 mmHg (80.0-100.0) H 04/01/17 05:19 ABG HCO3 22.2 mmol/L (22-26) 04/01/17 05:19 ABG O2 Saturation 100.0 % (90-100) 04/01/17 05:19 ABG Base Excess 0.8 mmol/L (-2.0-2.0) 04/01/17 05:19 Daniel Test Na 04/01/17 05:19 A-a Gradient -7.0 mmHg 04/01/17 05:19 FiO2 30.000 04/01/17 05:19 Blood Gas Comments [place] abg well-mtf 04/01/17 05:19 Sodium 143 mmol/L (136-145) 04/07/17 04:05 Corrected Sodium TNP 04/07/17 04:05 Potassium 4.3 mmol/L (3.5-5.1) 04/07/17 04:05 Chloride 106 mmol/L (98-107) 04/07/17 04:05 Carbon Dioxide 32.2 mmol/L (21-32) H 04/07/17 04:05 BUN 35 mg/dL (7-18) H 04/07/17 04:05 Creatinine 1.44 mg/dL (0.55-1.02) H 04/07/17 04:05 Est GFR (MDRD) Af Amer 46 (>60) L 04/07/17 04:05 Est GFR (MDRD) Non-Af 38 (>60) L 04/07/17 04:05 Glucose 86 mg/dL (65-99) 04/07/17 04:05 Calcium 8.3 mg/dL (8.5-10.1) L 04/07/17 04:05 Corrected Calcium 9.3 mg/dL (8.5-10.1) 04/07/17 04:05 Magnesium 1.8 mg/dL (1.7-2.9) 04/04/17 05:30 Total Bilirubin 0.50 mg/dL (0.2-1.0) 04/07/17 04:05 AST 24 Units/L (15-37) 04/07/17 04:05 ALT 15 Units/L (12-78) 04/07/17 04:05 Alkaline Phosphatase 90 Units/L (46-116) 04/07/17 04:05 Creatine Kinase 8 Units/L (26-192) L 03/29/17 18:20 CK-MB (CK-2) < 1.0 ng/mL (0-4.0) 03/29/17 18:20 CK/CKMB % Calc 12.5 % (<4) 03/29/17 18:20 Troponin I 0.02 ng/mL (0-1.5) 03/29/17 18:20 B-Natriuretic Peptide 165 pg/mL (0-79) H 03/29/17 18:20 Total Protein 5.5 g/dL (6.4-8.2) L 04/07/17 04:05 Albumin 2.8 g/dL (3.4-5.0) L 04/07/17 04:05 Globulin 2.7 g/dL (2.5-4.5) 04/07/17 04:05 Albumin/Globulin Ratio 1.0 Ratio (1.1-2.1) L 04/07/17 04:05 Specimen Type Catherized urine 03/31/17 21:58 Urine Color Yellow (YELLOW) 03/31/17 21:58 Urine Appearance Slightly hazy (CLEAR) 03/31/17 21:58 Urine pH 6.0 (5.0 - 8.0) 03/31/17 21:58 Ur Specific [place] 1.030 (1.000-1.030) 03/31/17 21:58 Urine Protein 3+ (NEGATIVE) 03/31/17 21:58 Urine Glucose (UA) Negative (NEGATIVE) 03/31/17 21:58 Urine Ketones Negative (NEGATIVE) 03/31/17 21:58 Urine Occult Blood 3+ (NEGATIVE) 03/31/17 21:58 Urine Nitrite Negative (NEGATIVE) 03/31/17 21:58 Urine Bilirubin Negative (NEGATIVE) 03/31/17 21:58 Urine Urobilinogen Normal (NORMAL) 03/31/17 21:58 Ur Leukocyte Esterase 1+ (NEGATIVE) 03/31/17 21:58 Urine RBC 10-15 /HPF (NEGATIVE) 03/31/17 21:58 Urine WBC 20-30 /HPF (NEGATIVE) 03/31/17 21:58 Ur Squamous Epith Cells Moderate /HPF (NEGATIVE) 03/31/17 21:58 Amorphous Sediment 4+ /HPF (NEGATIVE) 03/31/17 21:58 Urine Bacteria 2+ /HPF (NEGATIVE) 03/31/17 21:58 Urine Mucus Moderate /HPF (NEGATIVE) 03/31/17 21:58 Urine Yeast Many /HPF (NEGATIVE) 03/31/17 21:58 Ur Culture Indicated? Yes/culture set up 03/31/17 21:58 Tissue Pathology To follow 04/01/17 00:11 Blood Type O POSITIVE 03/31/17 21:02 Antibody Screen Positive 03/31/17 21:02 Antibody Identification Anti-P1 03/31/17 21:02 Crossmatch See Detail 03/31/17 21:02 - Plan (1) Perforated abdominal viscus Status: Acute Plan: s/p REPAIR. FOLLOW POST OPERATIVE PLAN OF CARE. AM LABS, BP MONITORING, PAIN AND NAUSEA CONTROL, WOUND CARE, CONTINUE TO MONITOR (2) CHF (congestive heart failure) Status: Acute Qualifiers: Congestive heart failure type: combined Congestive heart failure chronicity : acute on chronic Qualified Code(s): I50.43 - Acute on chronic combined systolic (congestive) and diastolic (congestive) heart failure Plan: BB, I &OS, HERZOG, AM CXR, CONTINUE TO MONITOR (3) Respiratory distress Status: Acute Plan: duoneb, supplemental oxygen, continue to monitor (4) Hyperlipidemia Status: Chronic Qualifiers: Hyperlipidemia type: mixed hyperlipidemia Qualified Code(s): E78.2 - Mixed hyperlipidemia Plan: continue zocor
[2017-04-07] MEDS ORDERED: DULCOLAX SUPPOSITORY 10 MG RECTAL ONE (12:30)
[2017-04-07] MEDS ORDERED: MIRALAX POWDER (1 DOSE 17GM) ONE (12:53)
[2017-04-07] MEDS ORDERED: DULCOLAX SUPPOSITORY 10 MG RECTAL PRN (12:57)
[2017-04-07] MEDS: MIRALAX POWDER (1 DOSE 17GM) PO SCH (20:50)
[2017-04-07] MEDS: MORPHINE SULFATE INJ 2 MG IVP PRN (21:10)
[2017-04-08] MEDS: HEPARIN SODIUM INJ 5000 UNITS SC SCH ×3 (01:07→18:49)
[2017-04-08 05:51] LABS: BASOPHILS % (AUTO) 0.5 % (0.2-1.0); HEMATOCRIT 29.4 % (36.0-47.0); HEMOGLOBIN 9.9 g/dL (12.0-16.0); LYMPHOCYTES # (AUTO) 0.4 X10^3/uL (1.3-2.9); LYMPHOCYTES % (AUTO) 8.8 % (21.0-51.0); MEAN CORPUSCULAR HEMOGLOBIN 30.9 pg (27.0-34.0); MEAN CORPUSCULAR HGB CONC 33.8 g/dL (33.0-35.0); MEAN CORPUSCULAR VOLUME 91.6 fL (80.0-100.0); MEAN PLATELET VOLUME 9.3 fL (7.4-11.0); MONOCYTES # (AUTO) 0.5 x10^3/uL (0.3-0.8); MONOCYTES % (AUTO) 12.2 % (0.0-13.0); NEUTROPHILS # (AUTO) 3.3 x10^3/uL (2.2-4.8); NEUTROPHILS % (AUTO) 78.5 % (42.0-75.0); PLATELET COUNT 122 X10^3/uL (150.0-450.0); RED BLOOD COUNT 3.21 X10^6/uL (3.5-5.4); RED CELL DISTRIBUTION WIDTH 15.3 % (11.6-16.5); WHITE BLOOD COUNT 4.2 X10^3/uL (3.6-10.0)
[2017-04-08 05:58] LABS: ALANINE AMINOTRANSFERASE 15 Units/L (12-78); ALBUMIN 2.9 g/dL (3.4-5.0); ALKALINE PHOSPHATASE 95 Units/L (46-116); ASPARTATE AMINO TRANSFERASE 31 Units/L (15-37); BLOOD UREA NITROGEN 33 mg/dL (7-18); CALCIUM 8.2 mg/dL (8.5-10.1); CARBON DIOXIDE 31.7 mmol/L (21-32); CHLORIDE 107 mmol/L (98-107); COR CA(FOR HYPOALB) 9.1 mg/dL (8.5-10.1); CREATININE 1.44 mg/dL (0.55-1.02); GLUCOSE 89 mg/dL (65-99); SODIUM 144 mmol/L (136-145); TOTAL PROTEIN 5.6 g/dL (6.4-8.2); eGFR BLACK RACES 46 (>60); eGFR NON BLACK RACES 38 (>60)
--- NOTE | 2017-04-08 06:38 | RAD ---
HISTORY: Shortness of breath Study: Single-view chest, done portably Comparison: April 07, 2017 Findings: Cardiac monitoring electrodes are noted on the chest. Right-sided internal jugular line is present w ith the tip in the mid SVC. There are again changes of CABG with median sternotomy sutures and metal lic sutures indicating coronary artery bypass grafts. The trachea is midline. Cardiomegaly with athe rosclerotic calcification and uncoiling of the aortic arch. Focus of atelectasis or infiltrate in th e left base is unchanged. Significant interval increase in density in the right lung base is seen. T his may indicate further increase in atelectasis or infiltrate the development of pleural fluid on t he right. Osseous structures are intact. IMPRESSION: Increasing atelectasis, infiltrate or fluid in the right lung base. The left lung base is about the same. Reported By:
[2017-04-08] MEDS ORDERED: MIRALAX POWDER (1 DOSE 17GM) PO SCH (09:00)
[2017-04-08] MEDS: DUONEB 0.5 MG/3 MG NEB SCH ×4 (09:54→21:07)
--- NOTE | 2017-04-08 10:04 | PCM.PROG ---
Progress Note - Progress Note for Day of Date: 04/08/17 - Subjective Subjective: Patient is alert and oriented on rounds, sitting in high fowlers position in bed. Patient verbalizes feeling better this morning. On examination , lungs are noted to be clear to auscultation. Hightower catheter noted to bedside drainage. Patient also has central line noted to right juglar. Staff reports that patient had a large bowel movement last night and is starting to have an increased appetite. Vital signs this am 97.7, 100, 19, 100%, 125/56. Labs this am are within normal limits with the exception of Hgb 9.9, Hct 29.4, Plt count 122, INR 1.47, PTT 47.7, BUN 33, Creatinine 1.44, Est GFR 38, Calcium 8.2, Albumin 2.9, total protein 5.6. Chest xray this am shows increasing atelectasis , infiltrate, or fluid in right lung base. We will continue with aggressive neb treatments, hourly IS, and begin bladder training. We will check CBC,CMP, and chest xray and follow up with patient in am with plans to discharge back to [facility] when released by . - Past Medical Family Social History Past Med/Fam/Surg Hx: No changes since H&P Allergies: Allergies Sulfa (Sulfonamide Antibiotics) [SULFA] Allergy (Verified 03/29/17 21:54) - Review of Systems ROS: No change since H&P - Vital Signs and I&O's Vital Signs: Temperature 97.7 F Pulse Rate [Right Brachial] 100 Pulse Rate 99 Respiratory Rate 19 Blood Pressure [Left Arm] 123/39 Blood Pressure [Right Arm] 125/56 Blood Pressure 127/57 O2 Sat by Pulse Oximetry 100 Intake and Output: Intake & Output 04/05/17 04/06/17 04/07/17 04/08/17 11:59 11:59 11:59 11:59 Intake Total 1335 2165 1322 1875 Output Total 1415 1952 2130 2290 Balance -80 823 -037 -935 - Physical Exam Oriented: Normal Eyes: Normal Ear: Normal Nose: Normal Throat: Normal Respiratory: Wheezes, Rhonchi Cardiovascular: Other (hypotensive ) : Normal Auscultation: Bowel Sounds: Decreased, Other (patient with NG tube in place) Palpation: Normal Tenderness: Diffuse Skin: Decreased Turgur, Wound (abdominal wound, clean intact dressing, ALISHA Drain) Musculoskeletal: Normal, Instability Psychiatric: Normal Mood Description: Calm Affect: Normal Speech Pattern: Clear - Laboratory and Diagnostics Result Diagrams: 04/08/17 04:30 04/08/17 04:30 Labs: 04/01/17 00:11 Abdomen - Final Enterococcus Faecalis 03/31/17 21:58 Urine,Catheterized Urine Culture - Final Laboratory WBC 4.2 X10^3/uL (3.6-10.0) 04/08/17 04:30 RBC 3.21 X10^6/uL (3.5-5.4) L 04/08/17 04:30 Hgb 9.9 g/dL (12.0-16.0) L 04/08/17 04:30 Hct 29.4 % (36.0-47.0) L 04/08/17 04:30 MCV 91.6 fL (80.0-100.0) 04/08/17 04:30 MCH 30.9 pg (27.0-34.0) 04/08/17 04:30 MCHC 33.8 g/dL (33.0-35.0) 04/08/17 04:30 RDW 15.3 % (11.6-16.5) 04/08/17 04:30 Plt Count 122 X10^3/uL (150.0-450.0) L 04/08/17 04:30 Plt Count Comment Decreased (ADEQUATE) A 04/01/17 06:30 MPV 9.3 fL (7.4-11.0) 04/08/17 04:30 Neut % 78.5 % (42.0-75.0) H 04/08/17 04:30 Lymph % 8.8 % (21.0-51.0) L 04/08/17 04:30 [place] % 12.2 % (0.0-13.0) 04/08/17 04:30 Eos % 0.0 % (0.9-2.9) L 04/08/17 04:30 Baso % 0.5 % (0.2-1.0) 04/08/17 04:30 Neut # 3.3 x10^3/uL (2.2-4.8) 04/08/17 04:30 Lymph # 0.4 X10^3/uL (1.3-2.9) L 04/08/17 04:30 [place] # 0.5 x10^3/uL (0.3-0.8) 04/08/17 04:30 Eos # 0.0 x10^3/uL (0.0-0.2) 04/08/17 04:30 Baso # 0.0 X10^3/uL (0.0-0.1) 04/08/17 04:30 Absolute Nucleated RBC 0.1 /100WBC 04/08/17 04:30 Total Counted 100 04/01/17 06:30 Neutrophils % (Manual) 76 % (39-76) 04/01/17 06:30 Band Neutrophils % 10 % (0-10) 04/01/17 06:30 Lymphocytes % (Manual) 10 % (13-43) L 04/01/17 06:30 Monocytes % (Manual) 4 % (4-9) 04/01/17 06:30 Plt Morphology Comment Normal (NORMAL) 04/01/17 06:30 RBC Morphology Normal (NORMAL) 04/01/17 06:30 INR Target Range - 04/08/17 04:30 INR 1.47 (0.8-1.3) H 04/08/17 04:30 PTT 47.7 SECONDS (22.9-36.5) H 04/08/17 04:30 PTT Comment - 04/08/17 04:30 Sample Site [facility] 04/01/17 05:19 ABG pH 7.540 (7.35-7.45) H 04/01/17 05:19 ABG pCO2 26.0 mmHg (35.0-45.0) L 04/01/17 05:19 ABG pO2 188.0 mmHg (80.0-100.0) H 04/01/17 05:19 ABG HCO3 22.2 mmol/L (22-26) 04/01/17 05:19 ABG O2 Saturation 100.0 % (90-100) 04/01/17 05:19 ABG Base Excess 0.8 mmol/L (-2.0-2.0) 04/01/17 05:19 Daniel Test Na 04/01/17 05:19 A-a Gradient -7.0 mmHg 04/01/17 05:19 FiO2 30.000 04/01/17 05:19 Blood Gas Comments [place] [facility] well-mtf 04/01/17 05:19 Sodium 144 mmol/L (136-145) 04/08/17 04:30 Corrected Sodium TNP 04/08/17 04:30 Potassium 3.7 mmol/L (3.5-5.1) 04/08/17 04:30 Chloride 107 mmol/L (98-107) 04/08/17 04:30 Carbon Dioxide 31.7 mmol/L (21-32) 04/08/17 04:30 BUN 33 mg/dL (7-18) H 04/08/17 04:30 Creatinine 1.44 mg/dL (0.55-1.02) H 04/08/17 04:30 Est GFR (MDRD) Af Amer 46 (>60) L 04/08/17 04:30 Est GFR (MDRD) Non-Af 38 (>60) L 04/08/17 04:30 Glucose 89 mg/dL (65-99) 04/08/17 04:30 Calcium 8.2 mg/dL (8.5-10.1) L 04/08/17 04:30 Corrected Calcium 9.1 mg/dL (8.5-10.1) 04/08/17 04:30 Magnesium 1.8 mg/dL (1.7-2.9) 04/04/17 05:30 Total Bilirubin 0.60 mg/dL (0.2-1.0) 04/08/17 04:30 AST 31 Units/L (15-37) 04/08/17 04:30 ALT 15 Units/L (12-78) 04/08/17 04:30 Alkaline Phosphatase 95 Units/L (46-116) 04/08/17 04:30 Creatine Kinase 8 Units/L (26-192) L 03/29/17 18:20 CK-MB (CK-2) < 1.0 ng/mL (0-4.0) 03/29/17 18:20 CK/CKMB % Calc 12.5 % (<4) 03/29/17 18:20 Troponin I 0.02 ng/mL (0-1.5) 03/29/17 18:20 B-Natriuretic Peptide 165 pg/mL (0-79) H 03/29/17 18:20 Total Protein 5.6 g/dL (6.4-8.2) L 04/08/17 04:30 Albumin 2.9 g/dL (3.4-5.0) L 04/08/17 04:30 Globulin 2.7 g/dL (2.5-4.5) 04/08/17 04:30 Albumin/Globulin Ratio 1.1 Ratio (1.1-2.1) 04/08/17 04:30 Specimen Type Catherized urine 03/31/17 21:58 Urine Color Yellow (YELLOW) 03/31/17 21:58 Urine Appearance Slightly hazy (CLEAR) 03/31/17 21:58 Urine pH 6.0 (5.0 - 8.0) 03/31/17 21:58 Ur Specific [place] 1.030 (1.000-1.030) 03/31/17 21:58 Urine Protein 3+ (NEGATIVE) 03/31/17 21:58 Urine Glucose (UA) Negative (NEGATIVE) 03/31/17 21:58 Urine Ketones Negative (NEGATIVE) 03/31/17 21:58 Urine Occult Blood 3+ (NEGATIVE) 03/31/17 21:58 Urine Nitrite Negative (NEGATIVE) 03/31/17 21:58 Urine Bilirubin Negative (NEGATIVE) 03/31/17 21:58 Urine Urobilinogen Normal (NORMAL) 03/31/17 21:58 Ur Leukocyte Esterase 1+ (NEGATIVE) 03/31/17 21:58 Urine RBC 10-15 /HPF (NEGATIVE) 03/31/17 21:58 Urine WBC 20-30 /HPF (NEGATIVE) 03/31/17 21:58 Ur Squamous Epith Cells Moderate /HPF (NEGATIVE) 03/31/17 21:58 Amorphous Sediment 4+ /HPF (NEGATIVE) 03/31/17 21:58 Urine Bacteria 2+ /HPF (NEGATIVE) 03/31/17 21:58 Urine Mucus Moderate /HPF (NEGATIVE) 03/31/17 21:58 Urine Yeast Many /HPF (NEGATIVE) 03/31/17 21:58 Ur Culture Indicated? Yes/culture set up 03/31/17 21:58 Tissue Pathology To follow 04/01/17 00:11 Blood Type O POSITIVE 03/31/17 21:02 Antibody Screen Positive 03/31/17 21:02 Antibody Identification Anti-P1 03/31/17 21:02 Crossmatch See Detail 03/31/17 21:02 - Plan (1) Perforated abdominal viscus Status: Acute Plan: s/p REPAIR. FOLLOW POST OPERATIVE PLAN OF CARE. AM LABS, BP MONITORING, PAIN AND NAUSEA CONTROL, WOUND CARE, CONTINUE TO MONITOR (2) CHF (congestive heart failure) Status: Acute Qualifiers: Congestive heart failure type: combined Congestive heart failure chronicity : acute on chronic Qualified Code(s): I50.43 - Acute on chronic combined systolic (congestive) and diastolic (congestive) heart failure Plan: BB, I&OS, HIGHTOWER, AM CXR, CONTINUE TO MONITOR (3) Hyperlipidemia Status: Chronic Qualifiers: Hyperlipidemia type: mixed hyperlipidemia Qualified Code(s): E78.2 - Mixed hyperlipidemia Plan: continue zocor, continue to monitor
[2017-04-08] MEDS: VANCOMYCIN 1 GM PREMIX (ADDVANTAGE) 250 ML IV SCH ×2 (10:05→20:56)
[2017-04-08] MEDS: LASIX IVP SCH ×2 (10:05→20:56)
[2017-04-08] MEDS: ALBUMIN HUMAN 25%- 100ML 100 ML IV SCH (10:06)
[2017-04-08] MEDS: COLACE CAP 100 MG PO SCH ×2 (10:07→20:56)
[2017-04-08] MEDS: PROTONIX TAB 40 MG PO SCH (10:07)
[2017-04-08] MEDS: MIRALAX POWDER (1 DOSE 17GM) PO SCH ×2 (10:07→20:56)
[2017-04-08] MEDS: NORCO 5/325 MG TAB PO PRN (17:12)
[2017-04-08 20:51] LABS: CREATININE 1.48 mg/dL (0.55-1.02); VANCOMYCIN,TROUGH 16.8 ug/mL (15-20)
[2017-04-09] MEDS: NORCO 5/325 MG TAB PO PRN ×2 (01:02→06:07)
[2017-04-09] MEDS: HEPARIN SODIUM INJ 5000 UNITS SC SCH (01:03)
[2017-04-09 05:42] LABS: BASOPHILS % (AUTO) 0.5 % (0.2-1.0); HEMATOCRIT 30.4 % (36.0-47.0); HEMOGLOBIN 10.1 g/dL (12.0-16.0); LYMPHOCYTES # (AUTO) 0.4 X10^3/uL (1.3-2.9); LYMPHOCYTES % (AUTO) 11.1 % (21.0-51.0); MEAN CORPUSCULAR HEMOGLOBIN 30.2 pg (27.0-34.0); MEAN CORPUSCULAR HGB CONC 33.2 g/dL (33.0-35.0); MEAN PLATELET VOLUME 9.4 fL (7.4-11.0); MONOCYTES # (AUTO) 0.5 x10^3/uL (0.3-0.8); NEUTROPHILS % (AUTO) 75.4 % (42.0-75.0); PLATELET COUNT 121 X10^3/uL (150.0-450.0); RED BLOOD COUNT 3.34 X10^6/uL (3.5-5.4); RED CELL DISTRIBUTION WIDTH 15.4 % (11.6-16.5)
[2017-04-09 05:56] LABS: ALANINE AMINOTRANSFERASE 12 Units/L (12-78); ALKALINE PHOSPHATASE 82 Units/L (46-116); ASPARTATE AMINO TRANSFERASE 24 Units/L (15-37); BLOOD UREA NITROGEN 30 mg/dL (7-18); CALCIUM 8.5 mg/dL (8.5-10.1); CARBON DIOXIDE 33.4 mmol/L (21-32); CHLORIDE 107 mmol/L (98-107); COR CA(FOR HYPOALB) 9.3 mg/dL (8.5-10.1); CREATININE 1.31 mg/dL (0.55-1.02); GLUCOSE 99 mg/dL (65-99); SODIUM 146 mmol/L (136-145); TOTAL PROTEIN 5.6 g/dL (6.4-8.2); eGFR BLACK RACES 51 (>60); eGFR NON BLACK RACES 42 (>60)
--- NOTE | 2017-04-09 07:03 | RAD ---
HISTORY: Shortness of breath Study: Chest one view Comparison: April 08, 2017 Findings: The patient is status post median sternotomy and CABG. There is a right IJ line in good position. Th e heart is enlarged. No congestive heart failure is noted peer E no change abnormal density right susan ng base atelectasis versus infiltrate. The left lower lobe is better aerated than on the prior exami nation. The upper lung mahoney are clear. The bony thorax is unremarkable. IMPRESSION: Improving aeration of the left lung base No change abnormal parenchymal density on the right representing either atelectasis or infiltrate Mild cardiomegaly without congestive heart failure Reported By:
[2017-04-09] MEDS: ALBUMIN HUMAN 25%- 100ML 100 ML IV SCH (09:17)
[2017-04-09] MEDS: MIRALAX POWDER (1 DOSE 17GM) PO SCH (09:18)
[2017-04-09] MEDS: COLACE CAP 100 MG PO SCH (09:18)
[2017-04-09] MEDS: VANCOMYCIN 1 GM PREMIX (ADDVANTAGE) 250 ML IV SCH (09:18)
[2017-04-09] MEDS: PROTONIX TAB 40 MG PO SCH (09:19)
[2017-04-09] MEDS: LASIX IVP SCH (09:19)
--- NOTE | 2017-04-09 09:31 | PCM.PROG ---
Progress Note - Subjective Subjective: Patient is alert and oriented on rounds, sitting in high fowlers position in bed. Patient voices no complaints this morning. On examination, lungs are noted to be clear to auscultation. [place] catheter has been removed. ALISHA drain is still in place. Patient has central line noted to right juglar. Staff reports that patient had another large bowel movement last night. Vital signs this am 97.2, 77, 19, 100%, 139/54. Labs this am are within normal limits with the exception of Hgb 10.1, Hct 30.4, Plt count 121, INR 1.34, PTT 53.2, SODIUM 146, POTASSIUM 3.4, BUN 30, Creatinine 1.31, Est GFR 42, Albumin 3.0, total protein 5.6. Chest xray this am shows improving aeration of the left lung base, abnormal parenchymal density on the right repepresenting atelectasis or infiltrate, mild cardiomegaly without CHF. We will plan to discharge patient back to [facility] today on an extended course of antibiotic therapy if released by . - Past Medical Family Social History Past Med/Fam/Surg Hx: No changes since H&P Allergies: Allergies Sulfa (Sulfonamide Antibiotics) [SULFA] Allergy (Verified 03/29/17 21:54) - Review of Systems ROS: No change since H&P - Vital Signs and I&O's Vital Signs: Temperature 97.2 F Pulse Rate [Right Brachial] 87 Pulse Rate 73 Respiratory Rate 20 Blood Pressure [Left Arm] 123/39 Blood Pressure [Right Arm] 139/54 Blood Pressure 127/57 O2 Sat by Pulse Oximetry 99 Intake and Output: Intake & Output 04/06/17 04/07/17 04/08/17 04/09/17 11:59 11:59 11:59 11:59 Intake Total 2165 1322 1875 1710 Output Total 2 2130 2290 1700 Balance 837 -461 -225 10 - Physical Exam Oriented: Normal Eyes: Normal Ear: Normal Nose: Normal Throat: Normal Respiratory: Normal Cardiovascular: Normal : Normal Auscultation: Bowel Sounds: Normal Palpation: Normal Tenderness: Diffuse Skin: Wound (abdominal wound, clean intact dressing, ALISHA Drain) Musculoskeletal: Normal, Instability Psychiatric: Normal Mood Description: Calm Affect: Normal Speech Pattern: Clear, Appropriate - Laboratory and Diagnostics Result Diagrams: 04/09/17 04:35 04/09/17 04:35 Labs: 04/01/17 00:11 Abdomen - Final Enterococcus Faecalis 03/31/17 21:58 Urine,Catheterized Urine Culture - Final Laboratory WBC 4.0 X10^3/uL (3.6-10.0) 04/09/17 04:35 RBC 3.34 X10^6/uL (3.5-5.4) L 04/09/17 04:35 Hgb 10.1 g/dL (12.0-16.0) L 04/09/17 04:35 Hct 30.4 % (36.0-47.0) L 04/09/17 04:35 MCV 91.0 fL (80.0-100.0) 04/09/17 04:35 MCH 30.2 pg (27.0-34.0) 04/09/17 04:35 MCHC 33.2 g/dL (33.0-35.0) 04/09/17 04:35 RDW 15.4 % (11.6-16.5) 04/09/17 04:35 Plt Count 121 X10^3/uL (150.0-450.0) L 04/09/17 04:35 Plt Count Comment Decreased (ADEQUATE) A 04/01/17 06:30 MPV 9.4 fL (7.4-11.0) 04/09/17 04:35 Neut % 75.4 % (42.0-75.0) H 04/09/17 04:35 Lymph % 11.1 % (21.0-51.0) L 04/09/17 04:35 [place] % 13.0 % (0.0-13.0) 04/09/17 04:35 Eos % 0.0 % (0.9-2.9) L 04/09/17 04:35 Baso % 0.5 % (0.2-1.0) 04/09/17 04:35 Neut # 3.0 x10^3/uL (2.2-4.8) 04/09/17 04:35 Lymph # 0.4 X10^3/uL (1.3-2.9) L 04/09/17 04:35 [place] # 0.5 x10^3/uL (0.3-0.8) 04/09/17 04:35 Eos # 0.0 x10^3/uL (0.0-0.2) 04/09/17 04:35 Baso # 0.0 X10^3/uL (0.0-0.1) 04/09/17 04:35 Absolute Nucleated RBC 0.1 /100WBC 04/09/17 04:35 Total Counted 100 04/01/17 06:30 Neutrophils % (Manual) 76 % (39-76) 04/01/17 06:30 Band Neutrophils % 10 % (0-10) 04/01/17 06:30 Lymphocytes % (Manual) 10 % (13-43) L 04/01/17 06:30 Monocytes % (Manual) 4 % (4-9) 04/01/17 06:30 Plt Morphology Comment Normal (NORMAL) 04/01/17 06:30 RBC Morphology Normal (NORMAL) 04/01/17 06:30 INR Target Range - 04/09/17 04:35 INR 1.34 (0.8-1.3) H 04/09/17 04:35 PTT 53.2 SECONDS (22.9-36.5) H 04/09/17 04:35 PTT Comment - 04/09/17 04:35 Sample Site [facility] 04/01/17 05:19 ABG pH 7.540 (7.35-7.45) H 04/01/17 05:19 ABG pCO2 26.0 mmHg (35.0-45.0) L 04/01/17 05:19 ABG pO2 188.0 mmHg (80.0-100.0) H 04/01/17 05:19 ABG HCO3 22.2 mmol/L (22-26) 04/01/17 05:19 ABG O2 Saturation 100.0 % (90-100) 04/01/17 05:19 ABG Base Excess 0.8 mmol/L (-2.0-2.0) 04/01/17 05:19 Daniel Test Na 04/01/17 05:19 A-a Gradient -7.0 mmHg 04/01/17 05:19 FiO2 30.000 04/01/17 05:19 Blood Gas Comments [place] abg well-mtf 04/01/17 05:19 Sodium 146 mmol/L (136-145) H 04/09/17 04:35 Corrected Sodium TNP 04/09/17 04:35 Potassium 3.4 mmol/L (3.5-5.1) L 04/09/17 04:35 Chloride 107 mmol/L (98-107) 04/09/17 04:35 Carbon Dioxide 33.4 mmol/L (21-32) H 04/09/17 04:35 BUN 30 mg/dL (7-18) H 04/09/17 04:35 Creatinine 1.31 mg/dL (0.55-1.02) H 04/09/17 04:35 Est GFR (MDRD) Af Amer 51 (>60) L 04/09/17 04:35 Est GFR (MDRD) Non-Af 42 (>60) L 04/09/17 04:35 Glucose 99 mg/dL (65-99) 04/09/17 04:35 Calcium 8.5 mg/dL (8.5-10.1) 04/09/17 04:35 Corrected Calcium 9.3 mg/dL (8.5-10.1) 04/09/17 04:35 Magnesium 1.8 mg/dL (1.7-2.9) 04/04/17 05:30 Total Bilirubin 0.60 mg/dL (0.2-1.0) 04/09/17 04:35 AST 24 Units/L (15-37) 04/09/17 04:35 ALT 12 Units/L (12-78) 04/09/17 04:35 Alkaline Phosphatase 82 Units/L (46-116) 04/09/17 04:35 Creatine Kinase 8 Units/L (26-192) L 03/29/17 18:20 CK-MB (CK-2) < 1.0 ng/mL (0-4.0) 03/29/17 18:20 CK/CKMB % Calc 12.5 % (<4) 03/29/17 18:20 Troponin I 0.02 ng/mL (0-1.5) 03/29/17 18:20 B-Natriuretic Peptide 165 pg/mL (0-79) H 03/29/17 18:20 Total Protein 5.6 g/dL (6.4-8.2) L 04/09/17 04:35 Albumin 3.0 g/dL (3.4-5.0) L 04/09/17 04:35 Globulin 2.6 g/dL (2.5-4.5) 04/09/17 04:35 Albumin/Globulin Ratio 1.2 Ratio (1.1-2.1) 04/09/17 04:35 Specimen Type Catherized urine 03/31/17 21:58 Urine Color Yellow (YELLOW) 03/31/17 21:58 Urine Appearance Slightly hazy (CLEAR) 03/31/17 21:58 Urine pH 6.0 (5.0 - 8.0) 03/31/17 21:58 Ur Specific [place] 1.030 (1.000-1.030) 03/31/17 21:58 Urine Protein 3+ (NEGATIVE) 03/31/17 21:58 Urine Glucose (UA) Negative (NEGATIVE) 03/31/17 21:58 Urine Ketones Negative (NEGATIVE) 03/31/17 21:58 Urine Occult Blood 3+ (NEGATIVE) 03/31/17 21:58 Urine Nitrite Negative (NEGATIVE) 03/31/17 21:58 Urine Bilirubin Negative (NEGATIVE) 03/31/17 21:58 Urine Urobilinogen Normal (NORMAL) 03/31/17 21:58 Ur Leukocyte Esterase 1+ (NEGATIVE) 03/31/17 21:58 Urine RBC 10-15 /HPF (NEGATIVE) 03/31/17 21:58 Urine WBC 20-30 /HPF (NEGATIVE) 03/31/17 21:58 Ur Squamous Epith Cells Moderate /HPF (NEGATIVE) 03/31/17 21:58 Amorphous Sediment 4+ /HPF (NEGATIVE) 03/31/17 21:58 Urine Bacteria 2+ /HPF (NEGATIVE) 03/31/17 21:58 Urine Mucus Moderate /HPF (NEGATIVE) 03/31/17 21:58 Urine Yeast Many /HPF (NEGATIVE) 03/31/17 21:58 Ur Culture Indicated? Yes/culture set up 03/31/17 21:58 Vancomycin Trough 16.8 ug/mL (15-20) 04/08/17 20:26 Tissue Pathology To follow 04/01/17 00:11 Blood Type O POSITIVE 03/31/17 21:02 Antibody Screen Positive 03/31/17 21:02 Antibody Identification Anti-P1 03/31/17 21:02 Crossmatch See Detail 03/31/17 21:02 - Plan (1) Perforated abdominal viscus Status: Acute Plan: s/p REPAIR. FOLLOW POST OPERATIVE PLAN OF CARE. AM LABS, BP MONITORING, PAIN AND NAUSEA CONTROL, WOUND CARE, CONTINUE TO MONITOR (2) CHF (congestive heart failure) Status: Acute Qualifiers: Congestive heart failure type: combined Congestive heart failure chronicity : acute on chronic Qualified Code(s): I50.43 - Acute on chronic combined systolic (congestive) and diastolic (congestive) heart failure Plan: CONTINUE TO MONITOR (3) Hyperlipidemia Status: Chronic Qualifiers: Hyperlipidemia type: mixed hyperlipidemia Qualified Code(s): E78.2 - Mixed hyperlipidemia Plan: continue zocor, continue to monitor
[2017-04-09] MEDS: DUONEB 0.5 MG/3 MG NEB SCH ×2 (09:54→12:36)
[2017-04-09 14:16] VITALS: BP 154/57
--- NOTE | 2017-04-09 23:05 | DR.CARTERD ---
- Discharge Summary for: Discharge Summary for Date of:: 04/09/17 - Admission Date Date of Admission: 03/29/17 - Admission Diagnoses Admission Diagnosis: (1) Hypotension (2) Respiratory distress - Discharge Date Discharge Date: 04/09/17 - Discharge Diagnoses Discharge Diagnosis: (1) Perforated abdominal viscus (2) CHF (congestive heart failure) (3) Hyperlipidemia - Hospital Course Hospital Course: Patient is a 76yo female who presented to the emergency room from [facility] with complaints of cyanosis around her mouth and hypotensive. On arrival to the ED Vital signs 98.4, 69, 20, 96 on venture mask, 79/42. Labs were within normal limits with the exception of Hgb 11.0, Hct 33.2, plt count 88 , Neut% 85.4, Lymph% 9.3, Eos% 0.0, Neut# 8.1, Lymph# 0.9, Carbon dioxide 34.7, BUN 46, Creatinine 2.46, Est GFR 20, Glucose 100, Calcium 8.4, Alkaline phosphatase 41, Creatinine kinase 8, BNP 165, Total protein 5.5, Albumin 1.7, Albumin/globulin ratio 0.4. ABG within normal limits with the exception pCO2 52.0, pO2 71.0, HCO3 35.3, Base excess 9.5.Chest xray reported cardiomegaly and pulmonary venous congestion, small bilateral effusions were suspected. EKG shows NSR rate of 70. Patient was admitted with diagnosis of hypotension, respiratory distress and Bronchitis. Patient was started on levophed drip, NS @ 20ml/hr, Doxycyline 100mg IV Q12hr. An abd/pelvis CT was obtained due to abdominal pain and reported a perforated viscous. An ECHO was obtained prior to surgical clearance and reported and ejection fraction of 74%. Patient was hemodynamically stable and levophed drip was discontinued. Patient underwent surgery per Dr. Trammell. Patient tolerated procedure well. Patient was continued on IV antibiotics along with wound care to surgical incision. We continued to monitor patient following surgery and patient continued to improve slowly. Patient had an NG Tube and ALISHA Drain following surgery. Several days after surgery, NG Tube was removed when bowel sounds were active and patient was passing flatulence. Patient continued to improve. On day eleven, we planned for discharge. Instructions for medications and follow up were given to patient, family, and senior living staff. All voiced understanding. Patient is to continue on IV Vancomycin for an additional two weeks. Patient was discharged to senior living in stable condition with staff. - Discharge Medications Discharge Medications: Gabapentin 300 mg PO TID 03/29/17 [History] Tiotropium [place] Monohydrate [SPIRIVA HANDIHALER (30 DOSE) *] 2 inh INH DAILY 03/29/17 [History] Enoxaparin Sodium [Lovenox Inj 30 mg Syr] 30 mg SC DAILY #14 syr 04/09/17 [Rx] Furosemide [Lasix] 20 mg PO QAM #30 tab 04/09/17 [Rx] Hydrocodone-Acet 10/325 mg [NORCO 10 MG/325 MG *] 1 tab PO Q6H PRN #120 tab 04/19 [Rx] Ipratropium/Albuterol Nebule [DUONEB 0.5 MG/3 MG NEBULE *] 1 nebule NEB QID #90 04/09/17 [Rx] Megestrol Acetate [Megace] 40 mg PO BID #60 tab 04/09/17 [Rx] Vancomycin HCl in Dextrose 5 % [Vancomycin 1 Gram/250 ml-D5w] 1 gm IV Q12H #28 plast..bag 04/09/17 [Rx] - Discharge Disposition Discharge Disposition: We will follow up with patient at senior living in one week.
== END 2017-04-09 14:40 | DRG 356 ==
LOC: ER 17:23 → ICU 21:26
PROVIDERS: ADMIT Internal Medicine; ATTEND Internal Medicine
PROC: 0DBS0ZZ (ICD-10-PCS; principal; 2017-04-01)
PROC: 0D9W00Z Drainage of Peritoneum with Drainage Device, Open Approach (ICD-10-PCS; 2017-04-01)
DX: K63.1 Perforation of intestine (nontraumatic) (principal); I50.43 Acute on chronic combined systolic (congestive) and diastolic (congestive) heart failure; Z87.01 Personal history of pneumonia (recurrent); J90 Pleural effusion, not elsewhere classified; J93.82 Other air leak; R06.00 Dyspnea, unspecified; I95.89 Other hypotension; R23.0 Cyanosis; J20.8 Acute bronchitis due to other specified organisms; R06.02 Shortness of breath; J44.9 Chronic obstructive pulmonary disease, unspecified; I25.10 Atherosclerotic heart disease of native coronary artery without angina pectoris; F41.8 Other specified anxiety disorders; E78.2 Mixed hyperlipidemia; K21.9 Gastro-esophageal reflux disease without esophagitis; I10 Essential (primary) hypertension; R53.83 Other fatigue; R09.89 Other specified symptoms and signs involving the circulatory and respiratory systems; R94.31 Abnormal electrocardiogram [ECG] [EKG]; R10.84 Generalized abdominal pain; B95.2 Enterococcus as the cause of diseases classified elsewhere; R26.89 Other abnormalities of gait and mobility; K66.0 Peritoneal adhesions (postprocedural) (postinfection); K65.1 Peritoneal abscess
CPT/HCPCS: 36415; 36430; 36556; 36600; 71010; 74176; 80053; 80202; 81001; 82550; 82553; 82565; 82803; 83735; 83880; 84484; 85025; 85610; 85730; 86850; 86880; 86885; 86900; 86901; 86902; 86906; 86922; 87040; 87070; 87077; 87086; 87186; 88305; 93005; 93306; 94640; 94660; 96365; 96367; 96374; 97535; 99284; 99285; A4222; A4618; A7030; B5200; C9113; P9016; P9047; Q0177; S0028; S0030; J0330; J0690; J0744; J1644; J1940; J2270; J2405; J2710; J3010; J3370; J3490; J7120; J7506; J7620

== ENCOUNTER 2017-04-12 12:20 | Inpatient (IN) | payer OTHER ==
[2017-04-12] MEDS ORDERED: NS 1000 ML 1,000 ML ONE ×2 (12:32→13:39)
[2017-04-12 12:40] VITALS: BMI 35.3
[2017-04-12 12:49] LABS: ABG BASE EXCESS 6.9 mmol/L (-2.0-2.0)
[2017-04-12 12:50] LABS: ABG ALLEN TEST POS; ABG HCO3 36.2 mmol/L (22-26)
[2017-04-12] MEDS ORDERED: NS 1000 ML 1,000 ML IV ONE ×2 (12:57→13:50)
[2017-04-12] MEDS: DOPAMINE IV PREMIX 400 MG 400 MG/250 ML BAG IV PRN (13:06)
[2017-04-12] MEDS ORDERED: DUONEB 0.5 MG/3 MG ONE ×2 (13:08→16:17)
[2017-04-12] MEDS ORDERED: DUONEB 0.5 MG/3 MG NEB ONE (13:25)
[2017-04-12 13:27] LABS: BASOPHILS % (AUTO) 0.3 % (0.2-1.0); HEMATOCRIT 25.2 % (36.0-47.0); HEMOGLOBIN 8.3 g/dL (12.0-16.0); LYMPHOCYTES # (AUTO) 0.5 X10^3/uL (1.3-2.9); LYMPHOCYTES % (AUTO) 9.3 % (21.0-51.0); MEAN CORPUSCULAR HEMOGLOBIN 30.2 pg (27.0-34.0); MEAN CORPUSCULAR HGB CONC 32.9 g/dL (33.0-35.0); MEAN CORPUSCULAR VOLUME 91.6 fL (80.0-100.0); MEAN PLATELET VOLUME 9.6 fL (7.4-11.0); MONOCYTES # (AUTO) 0.6 x10^3/uL (0.3-0.8); MONOCYTES % (AUTO) 11.2 % (0.0-13.0); NEUTROPHILS # (AUTO) 4.1 x10^3/uL (2.2-4.8); NEUTROPHILS % (AUTO) 79.2 % (42.0-75.0); PLATELET COUNT 130 X10^3/uL (150.0-450.0); RED BLOOD COUNT 2.75 X10^6/uL (3.5-5.4); RED CELL DISTRIBUTION WIDTH 15.9 % (11.6-16.5); WHITE BLOOD COUNT 5.2 X10^3/uL (3.6-10.0)
--- NOTE | 2017-04-12 13:30 | RAD ---
History: Shortness of breath and hypotensive Study: Portable chest Comparison: April 09 Findings: There is increasing airspace disease in the right lower lobe. There is blunting of the cos tophrenic angles. The heart size is normal status post old coronary artery bypass grafting surgery. There is an unchanged right jugular line in the SVC. Impression: 1. Persistent right lower lobe apparent pneumonia 2. Unchanged small bilateral pleural effusions Reported By:
[2017-04-12 13:38] LABS: BILIRUBIN,URINE 1+ (NEGATIVE); BLOOD/HEMOGLOBIN,URINE 1+ (NEGATIVE); GLUCOSE, URINE NEGATIVE (NEGATIVE); KETONES,URINE NEGATIVE (NEGATIVE); LEUKOCYTE ESTERASE ,URINE 2+ (NEGATIVE); NITRITES,URINE NEGATIVE (NEGATIVE); PROTEIN,URINE 2+ (NEGATIVE); UROBILINOGEN,URINE NORMAL (NORMAL)
--- NOTE | 2017-04-12 13:38 | DR.GENAD ---
HPI - PCP Primary Care Physician: DR. EUGENE - Complaint/Symptoms Chief Complaint Doctors Comments: Patient was [facility] to the [facility] in March with symptoms of hypotension,HF, anemia,dementia,etc. She underwent abdominal surgery three days ago sent to [facility] for routine after surgery care. Chief Complaint:: BREONNA LORENZ FROM [facility] CALLED AND STATED THAT PATIENT BLOOD PRESSURE IS LOW AND THAT HER O2 SAT HAS BEEN IN THE 80'S TODAY. SHE ALSO STATED THAT PATIENT HAS "JUNKY" LUNG SOUNDS AND THAT SHE HAS BEEN WEARNING HER BI PAP. PATIENT HAS BEEN RECEIVING VANCOMYCIN 1 GM IV UNTIL YESTERDAY AND IT WAS DISCONTINUED DUE THROUGH BEING 47.2. PATIENT STILL HAS MANSI TO HER ABDOMEN FROM A SURGERY SHE HAD LAST WEDNESDAY. PATIENT HAS A PICC LINE IN PLACE TO THE LEFT SIDE OF HER NECK. - Source History Provided: [facility] - Mode of Arrival Mode of Arrival: Stretcher - Timing Onset of Chief Complaint: 04/12/17 PMH - PMH Past Medical History: Yes Past Medical History: Anemia, Anxiety, CHF, COPD, Coronary Artery Disease, Dementia, Depression, Dyslipidemia, GERD, Hypertension, Liver Disease, VA, Renal Disease Past Surgical History: Yes Surgical History: Abdominal Surgery, CABG/Valve Surgery, Other - Family History History of Family Medical Conditions: No - Social History Does patient currently use any type of tobacco product: No Have you used tobacco products in the last 12 months: No Type of Tobacco Use: None Does any household member use tobacco: No Alcohol Use: None Do you use any recreational Drugs:: No Lives With: Family Lives Where: Home - infectious screening In the last 2 months have you had wt loss of >10#?: NO Have you had fever, night sweats or hemotysis?: No Have you traveled outside the country in the last 6 months?: No Isolation: Standard ROS - Review of Systems Eyes: No Symptoms Reported ENTM: No Symptoms Reported Respiratoy: No Symptoms Reported Cardiovascular: No Symptoms Reported Gastrointestinal/Abdominal: No Symptoms Reported Genitourinary: No Symptoms Reported Neurological: See HPI Musculoskeletal: No Symptoms Reported Integumentary: No Symptoms Reported Hematologic/Lymphatic: No Symptoms Reported Endocrine: No Symptoms Reported Psychiatric: No Symptoms Reported All Other Systems: Reviewed and Negative PE - Vital Signs Vitals: Temperature 97.9 F Pulse Rate [Apical] 68 Pulse Rate 70 Respiratory Rate 17 Blood Pressure [Left Arm] 123/39 Blood Pressure [Right Arm] 91/52 Blood Pressure 78/51 O2 Sat by Pulse Oximetry 91 - General Limitations: Altered Mental Status General Appearance: Lethargic - Head Head Exam: Normal Inspection, Atraumatic - Eyes Eye exam: Normal Appearance, PERRL, EOMI - ENT ENT Exam: Normal Exam, Mucous Membranes Dry External Ear Exam: Normal External Inspection TM/Canal Exam: Bilateral Normal Nose Exam: Normal Nose Exam Mouth Exam: Normal Inspection Throat Exam: Normal Inspection - Neck Neck Exam: Normal Inspection - Chest Chest Inspection: Normal Inspection - Respiratory Respiratory Exam: Respiratory Distress Respiratory Exam: Bilateral Clear to Auscultation - Cardiovascular Cardiovascular Exam: Regular Rate, Normal Rhythm - Abdominal Exam Abdominal Exam: Normal Inspection, Normal Bowel Sounds Abdominal Tenderness: Diffuse - Extremities Extremities Exam: Normal Inspection - Back Back Exam: Normal Inspection - Neurologic Neurological Exam: Oriented X3, CN II-XII Intact - Psychiatric Psychiatric Exam: Normal Affect - Skin Skin Exam: Warm, Dry, Intact Course - Consultation Called: 14:10 (Agreed to admit for further evaluation and treatment) ROR - Labs Reviewed Laboratory Results Reviewed?: Yes (hypokalemia) Result Diagrams: 04/12/17 13:17 04/12/17 13:17 Laboratory: WBC 5.2 X10^3/uL (3.6-10.0) 04/12/17 13:17 RBC 2.75 X10^6/uL (3.5-5.4) L 04/12/17 13:17 Hgb 8.3 g/dL (12.0-16.0) L 04/12/17 13:17 Hct 25.2 % (36.0-47.0) L 04/12/17 13:17 MCV 91.6 fL (80.0-100.0) 04/12/17 13:17 MCH 30.2 pg (27.0-34.0) 04/12/17 13:17 MCHC 32.9 g/dL (33.0-35.0) L 04/12/17 13:17 RDW 15.9 % (11.6-16.5) 04/12/17 13:17 Plt Count 130 X10^3/uL (150.0-450.0) L 04/12/17 13:17 MPV 9.6 fL (7.4-11.0) 04/12/17 13:17 Neut % 79.2 % (42.0-75.0) H 04/12/17 13:17 Lymph % 9.3 % (21.0-51.0) L 04/12/17 13:17 [place] % 11.2 % (0.0-13.0) 04/12/17 13:17 Eos % 0.0 % (0.9-2.9) L 04/12/17 13:17 Baso % 0.3 % (0.2-1.0) 04/12/17 13:17 Neut # 4.1 x10^3/uL (2.2-4.8) 04/12/17 13:17 Lymph # 0.5 X10^3/uL (1.3-2.9) L 04/12/17 13:17 [place] # 0.6 x10^3/uL (0.3-0.8) 04/12/17 13:17 Eos # 0.0 x10^3/uL (0.0-0.2) 04/12/17 13:17 Baso # 0.0 X10^3/uL (0.0-0.1) 04/12/17 13:17 Absolute Nucleated RBC 0.1 /100WBC 04/12/17 13:17 Sample Site Lra 04/12/17 12:47 ABG pH 7.280 (7.35-7.45) L 04/12/17 12:47 ABG pCO2 77.0 mmHg (35.0-45.0) H* 04/12/17 12:47 ABG pO2 112.0 mmHg (80.0-100.0) H 04/12/17 12:47 ABG HCO3 36.2 mmol/L (22-26) H* 04/12/17 12:47 ABG O2 Saturation 98.0 % (90-100) 04/12/17 12:47 ABG Base Excess 6.9 mmol/L (-2.0-2.0) H 04/12/17 12:47 Daniel Test Pos 04/12/17 12:47 A-a Gradient -9.0 mmHg 04/12/17 12:47 FiO2 28.000 04/12/17 12:47 Blood Gas Comments Park well cs 04/12/17 12:47 Sodium 144 mmol/L (136-145) 04/12/17 13:17 Corrected Sodium TNP 04/12/17 13:17 Potassium 3.1 mmol/L (3.5-5.1) L 04/12/17 13:17 Chloride 107 mmol/L (98-107) 04/12/17 13:17 Carbon Dioxide 32.0 mmol/L (21-32) 04/12/17 13:17 BUN 39 mg/dL (7-18) H 04/12/17 13:17 Creatinine 2.67 mg/dL (0.55-1.02) H 04/12/17 13:17 Est GFR (MDRD) Af Amer 22 (>60) L 04/12/17 13:17 Est GFR (MDRD) Non-Af 18 (>60) L 04/12/17 13:17 Glucose 105 mg/dL (65-99) H 04/12/17 13:17 Calcium 7.6 mg/dL (8.5-10.1) L 04/12/17 13:17 Corrected Calcium 9.1 mg/dL (8.5-10.1) 04/12/17 13:17 Total Bilirubin 0.50 mg/dL (0.2-1.0) 04/12/17 13:17 AST 17 Units/L (15-37) 04/12/17 13:17 ALT 11 Units/L (12-78) L 04/12/17 13:17 Alkaline Phosphatase 52 Units/L (46-116) 04/12/17 13:17 Creatine Kinase 8 Units/L (26-192) L 04/12/17 13:17 CK-MB (CK-2) < 1.0 ng/mL (0-4.0) 04/12/17 13:17 CK/CKMB % Calc 12.5 % (<4) 04/12/17 13:17 Troponin I 0.23 ng/mL (0-1.5) 04/12/17 13:17 Total Protein 4.9 g/dL (6.4-8.2) L 04/12/17 13:17 Albumin 2.1 g/dL (3.4-5.0) L 04/12/17 13:17 Globulin 2.8 g/dL (2.5-4.5) 04/12/17 13:17 Albumin/Globulin Ratio 0.8 Ratio (1.1-2.1) L 04/12/17 13:17 Specimen Type Catherized urine 04/12/17 13:28 Urine Color Dark yellow (YELLOW) 04/12/17 13:28 Urine Appearance Hazy (CLEAR) 04/12/17 13:28 Urine pH 5.0 (5.0 - 8.0) 04/12/17 13:28 Ur Specific [place] 1.020 (1.000-1.030) 04/12/17 13:28 Urine Protein 2+ (NEGATIVE) 04/12/17 13:28 Urine Glucose (UA) Negative (NEGATIVE) 04/12/17 13:28 Urine Ketones Negative (NEGATIVE) 04/12/17 13:28 Urine Occult Blood 1+ (NEGATIVE) 04/12/17 13:28 Urine Nitrite Negative (NEGATIVE) 04/12/17 13:28 Urine Bilirubin 1+ (NEGATIVE) 04/12/17 13:28 Urine Urobilinogen Normal (NORMAL) 04/12/17 13:28 Ur Leukocyte Esterase 2+ (NEGATIVE) 04/12/17 13:28 Urine RBC 0-3 /HPF (NEGATIVE) 04/12/17 13:28 Urine WBC 12-15 /HPF (NEGATIVE) 04/12/17 13:28 Ur Squamous Epith Cells Moderate /HPF (NEGATIVE) 04/12/17 13:28 Amorphous Sediment 1+ /HPF (NEGATIVE) 04/12/17 13:28 Urine Bacteria 3+ /HPF (NEGATIVE) 04/12/17 13:28 Urine Yeast Moderate /HPF (NEGATIVE) 04/12/17 13:28 Ur Culture Indicated? Yes/culture set up 04/12/17 13:28 - XRAY XRAY Interpreted by: Radiologist (Chest: There is increasing airspace disease in the right lower lobe. There is blunting of the costophrenic angles. The heart size is normal status post old coronary artery bypass grafting surger. There is an unchanged right jugular line in the SVC.Impression: Persistent right lower lobe apparent pneumonia. Unchanged small bilateral pleural effusions.) - Diagnosis Discharge Problem: Hypokalemia RLL pneumonia Qualifiers: Pneumonia type: due to unspecified organism Qualified Code(s): J18.1 - Lobar pneumonia, unspecified organism UTI (urinary tract infection) Qualifiers: Urinary tract infection type: acute cystitis Hematuria presence: with hematuria Qualified Code(s): N30.01 - Acute cystitis with hematuria COPD (chronic obstructive pulmonary disease) Qualifiers: COPD type: COPD with acute lower respiratory infection Qualified Code(s): J44.0 - Chronic obstructive pulmonary disease with acute lower respiratory infection Hypotension Qualifiers: Hypotension type: unspecified hypotension type Qualified Code(s): I95.9 - Hypotension, unspecified - Discharge Plan Condition: Stable - Follow ups/Referrals Follow ups/Referrals: [facility] [Primary Care Provider] - 3 days - Instructions
[2017-04-12 13:40] LABS: ALANINE AMINOTRANSFERASE 11 Units/L (12-78); ALBUMIN 2.1 g/dL (3.4-5.0); ALKALINE PHOSPHATASE 52 Units/L (46-116); ASPARTATE AMINO TRANSFERASE 17 Units/L (15-37); BLOOD UREA NITROGEN 39 mg/dL (7-18); CALCIUM 7.6 mg/dL (8.5-10.1); CHLORIDE 107 mmol/L (98-107); COR CA(FOR HYPOALB) 9.1 mg/dL (8.5-10.1); CREATININE 2.67 mg/dL (0.55-1.02); GLUCOSE 105 mg/dL (65-99); SODIUM 144 mmol/L (136-145); TOTAL PROTEIN 4.9 g/dL (6.4-8.2); eGFR BLACK RACES 22 (>60); eGFR NON BLACK RACES 18 (>60)
[2017-04-12 13:47] LABS: APPEARANCE,URINE HAZY (CLEAR); BACTERIA,URINE 3+ /HPF (NEGATIVE); COLOR,URINE DARK YELLOW (YELLOW); RBC,URINE 0-3 /HPF (NEGATIVE); SQUAMOUS EPITHELIAL CELL,UR MODERATE /HPF (NEGATIVE)
[2017-04-12 13:48] LABS: CKMB % 12.5 % (<4); CREATINE KINASE 8 Units/L (26-192); CREATINE KINASE MB < 1.0 ng/mL (0-4.0); TROPONIN I 0.23 ng/mL (0-1.5)
[2017-04-12 13:48] LABS: AMORPHOUS SEDIMENT,UR 1+ /HPF (NEGATIVE); YEAST,URINE MODERATE /HPF (NEGATIVE)
[2017-04-12] MEDS: POTASSIUM CHLORIDE IV SCH ×2 (14:42)
[2017-04-12] MEDS: 1/2 NS IV SCH ×2 (14:42)
[2017-04-12] MEDS: CIPRO IV 400 MG PREMIX* 400 MG/200 ML IV.SOLN. IV SCH ×2 (14:42→21:01)
[2017-04-12] MEDS: D5 IV SCH ×2 (14:42)
[2017-04-12] MEDS ORDERED: NORCO 10/325 TAB PO PRN (14:44)
[2017-04-12 15:09] LABS: ABG BASE EXCESS 4.2 mmol/L (-2.0-2.0)
[2017-04-12 15:10] LABS: ABG HCO3 33.9 mmol/L (22-26)
[2017-04-12] MEDS: NYSTATIN SUSP PO SCH ×2 (16:21→21:02)
[2017-04-12] MEDS: DUONEB 0.5 MG/3 MG NEB SCH ×2 (16:47→20:26)
[2017-04-12] MEDS ORDERED: PITAVASTATIN CALCIUM 2 MG PO SCH (21:00)
[2017-04-12] MEDS ORDERED: ZOCOR TAB 40 MG PO SCH (21:00)
[2017-04-12] MEDS: ANTIVERT TAB 25 MG PO SCH (21:02)
[2017-04-12] MEDS: NEURONTIN CAP 300 MG PO SCH (21:03)
[2017-04-12] MEDS: COLACE CAP 100 MG PO SCH (21:03)
[2017-04-12] MEDS: COREG TAB 3.125 MG PO SCH (21:03)
[2017-04-12] MEDS: MEGACE PO SCH (21:03)
[2017-04-12] MEDS: ZOSYN VIAL 4.5 GM 4.5 GM in NS 100 ML IV + SPIKE MINIBAG* 100 ML IV SCH (22:26)
[2017-04-13] MEDS: DUONEB 0.5 MG/3 MG NEB SCH ×4 (01:01→12:25)
[2017-04-13] MEDS: DOPAMINE IV PREMIX 400 MG 400 MG/250 ML BAG IV PRN ×3 (01:51→12:48)
[2017-04-13] MEDS: NEURONTIN CAP 300 MG PO SCH ×2 (05:21→13:00)
[2017-04-13] MEDS: ZOSYN VIAL 4.5 GM 4.5 GM in NS 100 ML IV + SPIKE MINIBAG* 100 ML IV SCH (05:21)
[2017-04-13] MEDS: D5 IV SCH ×2 (05:22)
[2017-04-13] MEDS: 1/2 NS IV SCH ×2 (05:22)
[2017-04-13] MEDS: POTASSIUM CHLORIDE IV SCH ×2 (05:22)
[2017-04-13 05:36] LABS: ALBUMIN 2.3 g/dL (3.4-5.0); CALCIUM 8.1 mg/dL (8.5-10.1); CARBON DIOXIDE 29.5 mmol/L (21-32); COR CA(FOR HYPOALB) 9.5 mg/dL (8.5-10.1); CREATININE 2.74 mg/dL (0.55-1.02); TOTAL PROTEIN 5.9 g/dL (6.4-8.2)
[2017-04-13 05:39] LABS: BASOPHILS % (AUTO) 0.4 % (0.2-1.0); HEMATOCRIT 30.8 % (36.0-47.0); LYMPHOCYTES # (AUTO) 0.5 X10^3/uL (1.3-2.9); LYMPHOCYTES % (AUTO) 10.4 % (21.0-51.0); MEAN CORPUSCULAR HEMOGLOBIN 29.9 pg (27.0-34.0); MEAN CORPUSCULAR HGB CONC 32.5 g/dL (33.0-35.0); MEAN PLATELET VOLUME 9.8 fL (7.4-11.0); MONOCYTES # (AUTO) 0.7 x10^3/uL (0.3-0.8); MONOCYTES % (AUTO) 16.5 % (0.0-13.0); NEUTROPHILS # (AUTO) 3.3 x10^3/uL (2.2-4.8); NEUTROPHILS % (AUTO) 72.7 % (42.0-75.0); PLATELET COUNT 173 X10^3/uL (150.0-450.0); RED BLOOD COUNT 3.35 X10^6/uL (3.5-5.4); RED CELL DISTRIBUTION WIDTH 15.7 % (11.6-16.5); WHITE BLOOD COUNT 4.5 X10^3/uL (3.6-10.0)
--- NOTE | 2017-04-13 06:11 | RAD ---
HISTORY: Cough Study: Chest one view Comparison: April 12, 2017 Findings: There is a right IJ line in good position. The patient is status post median sternotomy and CABG. He art size difficult to assess due to obscuration of both heart border by pleural effusion with likely associated lower lobe infiltrates. The upper lung mahoney are clear. The bony thorax is unremarkable . IMPRESSION: Bilateral pleural effusions and lower lobe infiltrates unchanged from the prior examination Reported By:
[2017-04-13] MEDS ORDERED: LEVAQUIN PREMIX IV 750 MG 750 MG/150 ML BAG IV SCH (09:00)
[2017-04-13] MEDS ORDERED: PROTONIX TAB 40 MG PO SCH (09:00)
[2017-04-13] MEDS ORDERED: LOSARTAN POTASSIUM 12.5 MG PO SCH (09:00)
[2017-04-13] MEDS ORDERED: ARICEPT TAB 5 MG PO SCH (09:00)
[2017-04-13] MEDS ORDERED: COZAAR PO SCH (09:00)
[2017-04-13] MEDS ORDERED: LOVENOX INJ 30 MG SYR SC SCH (09:00)
[2017-04-13] MEDS ORDERED: IMDUR PO SCH (09:00)
[2017-04-13] MEDS ORDERED: ALBUMIN HUMAN 25%- 100ML 100 ML IV SCH (09:00)
[2017-04-13] MEDS ORDERED: LASIX IVP SCH (09:00)
[2017-04-13] MEDS ORDERED: FOLIC ACID TAB 1 MG PO SCH (09:00)
[2017-04-13] MEDS ORDERED: MAGIC MOUTHWASH MT PRN (09:19)
[2017-04-13] MEDS: ZOSYN VIAL 3.375 GM 3.375 GM in NS 100 ML IV + SPIKE MINIBAG* 100 ML IV SCH ×3 (09:22→13:00)
[2017-04-13] MEDS: NYSTATIN SUSP PO SCH ×2 (09:25→12:56)
[2017-04-13] MEDS: MEGACE PO SCH (09:26)
[2017-04-13] MEDS: ANTIVERT TAB 25 MG PO SCH (09:26)
[2017-04-13] MEDS: COLACE CAP 100 MG PO SCH (09:26)
[2017-04-13] MEDS: COREG TAB 3.125 MG PO SCH (09:55)
[2017-04-13] MEDS ORDERED: PHARMACY CONSULT - TPN XX SCH (10:00)
[2017-04-13] MEDS ORDERED: CLINIMIX 5 %/25 % 1,000 ML with MVI INJ (ADULT) 10 ML, TRACE ELEMENTS INJ 10 ML, TPN EL... IV PRN ×5 (10:00)
[2017-04-13 10:07] LABS: CREATININE 2.82 mg/dL (0.55-1.02); VANCOMYCIN,TROUGH 36.7 ug/mL (15-20)
--- NOTE | 2017-04-13 10:24 | DR.UPDATE ---
H&P Update History and Physical Update: H&P WAS COMPLETED WITH HER LAST VISIT ON 03/29/17. SHE PRESENTED TO THE ER TODAY FROM [facility] WITH COMPLAINTS OF LOW BLOOD PRESSURE, SHORTNESS OF BREATH, AND OXYGEN SATURATIONS IN THE 80S. UPON ARRIVAL TO ER, VITALS WERE 97.9, 70,24,88,78/51. LABS REPORTED RBC 2.75, HGB 10.0,HCT 30.8, PH 7.28, PC02 77, HCO3 36.2, SODIUM 146, POTASSIUM 3.4, CARBON DIOXIDE 33.4, BUN 30, CREATININE 1.31, TOTAL PROTEIN 5.6, ALBUMIN 3.0. URINALYSIS REPORTED WBC 12-15, RBC 0-3, URINE BACTERIA 3+, PROTEIN 2+. CHEST XRAY REPORTED PERSISTENT RIGHT LOWER LOBE APPARENT PNEUMONIA, UNCHANGED SMALL BILATERAL PLEURAL EFFUSIONS. SHE WAS GIVEN A BOLUS OF IV FLUIDS IN ER WITH SLIGHT IMPROVEMENT IN BLOOD PRESSURE. WE ADMITTED PATIENT FOR FURTHER TREATMENT AND EVALUATION. WE WILL START PATIENT ON IV FLUIDS, CIPRO, AND ZOSYN. WE WILL RECHECK LABS AND CONTINUE TO MONITOR PATIENT. Changes noted: NO Yes with the following:
--- NOTE | 2017-04-13 12:36 | PCM.PROG ---
Progress Note - Progress Note for Day of Date: 04/13/17 - Subjective Subjective: WAS ADMITTED TO US YESTERDAY FROM [facility]. ON MORNING ROUNDS, PATIENT IS NOTED LYING IN BED WITH BIPAP ON. SHE COMPLIANS OF SHORTNESS OF BREATH, WEAKNESS, AND ABDOMINAL PAIN. SHE IS ALSO COMPLAINING OF A SORE TONGUE AND DRY MOUTH. PATIENT'S SON IS AT BEDSIDE. DOPAMINE IS NOTED INFUSING AT 51ML/HR. ON EXAMINATION, LUNGS ARE NOTED WITH WHEEZING BILATERALLY. BOWEL SOUNDS ARE HYPOACTIVE IN ALL QUADRANTS. VITALS THIS MORNING ARE 98.2, 93, 25, 97 % ON BIPAP, 97/44. LABS WNL EXCEPT RBC 3.35, HGB 10, HCT 30.8, BUN 40, HCT 2.82 , GLUCOSE 150, CALCIUM 8.1, ALKALINE PHOSPHATASE 195, TOTAL PROTEIN 5.9, ALBUMIN 2.3. CHEST XRAY REPORTS BILATERAL PLEURAL EFFUSIONS AND LOWER LOBE INFILTRATES. WE DISCUSSED WITH PATIENT HER WISHES REGARDING RESUSCITATION STATUS. PATIENT STATED THAT SHE DOES NOT WISH TO BE PLACED ON THE VENTILATOR OR FOR COPRESSION TO BE PERFORMED SHOULD THE NEED TO ARISE. PATIENT'S SON AGREES WITH PATIENT'S WISHES. WE WILL START PATIENT ON MAGIC MOUTH WASH, CONSULT PHARMACY FOR TPN, RECHECK LABS AND FOLLOW UP WITH PATIENT IN AM. - Past Medical Family Social History Past Med/Fam/Surg Hx: No changes since H&P Allergies: Allergies Sulfa (Sulfonamide Antibiotics) [SULFA] Allergy (Verified 03/29/17 21:54) - Review of Systems ROS: No change since H&P - Vital Signs and I&O's Vital Signs: Temperature 98.2 F Pulse Rate [Apical] 94 Pulse Rate 93 Respiratory Rate 16 Blood Pressure [Right Arm] 88/44 Blood Pressure 91/52 O2 Sat by Pulse Oximetry 100 Intake and Output: Intake & Output 04/11/17 04/12/17 04/13/17 04/14/17 11:59 11:59 11:59 11:59 Intake Total 3015 Output Total 125 Balance 2890 - Physical Exam Oriented: Normal Eyes: Normal. negative: Blurred Vision, Diplopia, Discharge, Pain, Redness, Photophobia, Other Ear: Normal. negative: Right, Left, Swelling, Ecchymosis, Hemotypanum, Abrasion , Laceration Nose: Normal. negative: Injected, Discharge, Blood, Other Throat: Dry Respiratory: Wheezes, OTHER (DYSPNEA ) Cardiovascular: Normal : Normal Auscultation: Bowel Sounds: Decreased Palpation: Normal Tenderness: Diffuse, Guarding Skin: Normal, Wound (ABDOMEN) Musculoskeletal: Normal, Instability Psychiatric: Normal Mood Description: Calm Affect: Normal Speech Pattern: Clear, Appropriate - Laboratory and Diagnostics Result Diagrams: 04/13/17 04:30 04/13/17 09:45 Labs: Laboratory WBC 4.5 X10^3/uL (3.6-10.0) 04/13/17 04:30 RBC 3.35 X10^6/uL (3.5-5.4) L 04/13/17 04:30 Hgb 10.0 g/dL (12.0-16.0) L 04/13/17 04:30 Hct 30.8 % (36.0-47.0) L 04/13/17 04:30 MCV 92.0 fL (80.0-100.0) 04/13/17 04:30 MCH 29.9 pg (27.0-34.0) 04/13/17 04:30 MCHC 32.5 g/dL (33.0-35.0) L 04/13/17 04:30 RDW 15.7 % (11.6-16.5) 04/13/17 04:30 Plt Count 173 X10^3/uL (150.0-450.0) 04/13/17 04:30 MPV 9.8 fL (7.4-11.0) 04/13/17 04:30 Neut % 72.7 % (42.0-75.0) 04/13/17 04:30 Lymph % 10.4 % (21.0-51.0) L 04/13/17 04:30 [place] % 16.5 % (0.0-13.0) H 04/13/17 04:30 Eos % 0.0 % (0.9-2.9) L 04/13/17 04:30 Baso % 0.4 % (0.2-1.0) 04/13/17 04:30 Neut # 3.3 x10^3/uL (2.2-4.8) 04/13/17 04:30 Lymph # 0.5 X10^3/uL (1.3-2.9) L 04/13/17 04:30 [place] # 0.7 x10^3/uL (0.3-0.8) 04/13/17 04:30 Eos # 0.0 x10^3/uL (0.0-0.2) 04/13/17 04:30 Baso # 0.0 X10^3/uL (0.0-0.1) 04/13/17 04:30 Absolute Nucleated RBC 0.1 /100WBC 04/13/17 04:30 Sample Site Rba 04/12/17 14:48 ABG pH 7.240 (7.35-7.45) L 04/12/17 14:48 ABG pCO2 79.0 mmHg (35.0-45.0) H* 04/12/17 14:48 ABG pO2 179.0 mmHg (80.0-100.0) H 04/12/17 14:48 ABG HCO3 33.9 mmol/L (22-26) H* 04/12/17 14:48 ABG O2 Saturation 99.0 % (90-100) 04/12/17 14:48 ABG Base Excess 4.2 mmol/L (-2.0-2.0) H 04/12/17 14:48 Daniel Test Na 04/12/17 14:48 A-a Gradient 257.0 mmHg 04/12/17 14:48 FiO2 75.000 04/12/17 14:48 Blood Gas Comments [place] well cs 04/12/17 14:48 Sodium 139 mmol/L (136-145) 04/13/17 04:30 Corrected Sodium 140 mmol/L (136-145) 04/13/17 04:30 Potassium 3.8 mmol/L (3.5-5.1) 04/13/17 04:30 Chloride 103 mmol/L (98-107) 04/13/17 04:30 Carbon Dioxide 29.5 mmol/L (21-32) 04/13/17 04:30 BUN 40 mg/dL (7-18) H 04/13/17 04:30 Creatinine 2.82 mg/dL (0.55-1.02) H 04/13/17 09:45 Est GFR (MDRD) Af Amer 22 (>60) L 04/13/17 04:30 Est GFR (MDRD) Non-Af 18 (>60) L 04/13/17 04:30 Glucose 150 mg/dL (65-99) H 04/13/17 04:30 Calcium 8.1 mg/dL (8.5-10.1) L 04/13/17 04:30 Corrected Calcium 9.5 mg/dL (8.5-10.1) 04/13/17 04:30 Total Bilirubin 0.60 mg/dL (0.2-1.0) 04/13/17 04:30 AST 23 Units/L (15-37) 04/13/17 04:30 ALT 13 Units/L (12-78) 04/13/17 04:30 Alkaline Phosphatase 195 Units/L (46-116) H 04/13/17 04:30 Creatine Kinase 8 Units/L (26-192) L 04/12/17 13:17 CK-MB (CK-2) < 1.0 ng/mL (0-4.0) 04/12/17 13:17 CK/CKMB % Calc 12.5 % (<4) 04/12/17 13:17 Troponin I 0.23 ng/mL (0-1.5) 04/12/17 13:17 Total Protein 5.9 g/dL (6.4-8.2) L 04/13/17 04:30 Albumin 2.3 g/dL (3.4-5.0) L 04/13/17 04:30 Globulin 3.6 g/dL (2.5-4.5) 04/13/17 04:30 Albumin/Globulin Ratio 0.6 Ratio (1.1-2.1) L 04/13/17 04:30 Specimen Type Catherized urine 04/12/17 13:28 Urine Color Dark yellow (YELLOW) 04/12/17 13:28 Urine Appearance Hazy (CLEAR) 04/12/17 13:28 Urine pH 5.0 (5.0 - 8.0) 04/12/17 13:28 Ur Specific [place] 1.020 (1.000-1.030) 04/12/17 13:28 Urine Protein 2+ (NEGATIVE) 04/12/17 13:28 Urine Glucose (UA) Negative (NEGATIVE) 04/12/17 13:28 Urine Ketones Negative (NEGATIVE) 04/12/17 13:28 Urine Occult Blood 1+ (NEGATIVE) 04/12/17 13:28 Urine Nitrite Negative (NEGATIVE) 04/12/17 13:28 Urine Bilirubin 1+ (NEGATIVE) 04/12/17 13:28 Urine Urobilinogen Normal (NORMAL) 04/12/17 13:28 Ur Leukocyte Esterase 2+ (NEGATIVE) 04/12/17 13:28 Urine RBC 0-3 /HPF (NEGATIVE) 04/12/17 13:28 Urine WBC 12-15 /HPF (NEGATIVE) 04/12/17 13:28 Ur Squamous Epith Cells Moderate /HPF (NEGATIVE) 04/12/17 13:28 Amorphous Sediment 1+ /HPF (NEGATIVE) 04/12/17 13:28 Urine Bacteria 3+ /HPF (NEGATIVE) 04/12/17 13:28 Urine Yeast Moderate /HPF (NEGATIVE) 04/12/17 13:28 Ur Culture Indicated? Yes/culture set up 04/12/17 13:28 Vancomycin Trough 36.7 ug/mL (15-20) H 04/13/17 09:45 - Plan (1) RLL pneumonia Status: Acute Qualifiers: Pneumonia type: due to unspecified organism Aspiration pneumonia type: A Qualified Code(s): J18.1 - Lobar pneumonia, unspecified organism Plan: ZOSYN IV, CHEST XRAY, RECHECK LABS, CONTINUE TO MONITOR (2) COPD (chronic obstructive pulmonary disease) Status: Acute Qualifiers: COPD type: COPD with acute lower respiratory infection Chronic bronchitis type: C Emphysema type: E Qualified Code(s): J44.0 - Chronic obstructive pulmonary disease with acute lower respiratory infection Plan: DUONEBS, CHECK CHEST XRAY, CONTINUE TO MONITOR (3) Hypotension Status: Acute Qualifiers: Hypotension type: unspecified hypotension type Trimester: T Qualified Code(s): I95.9 - Hypotension, unspecified Plan: DOMPAMINE, IV FLUIDS, CONTINUE TO MONITOR (4) Hypokalemia Status: Acute Plan: D5 1/2 NS WITH 40MEQ KCL AT 50ML/HR. (5) UTI (urinary tract infection) Status: Acute Qualifiers: Urinary tract infection type: acute cystitis Hematuria presence: with hematuria Indwelling urinary catheter type: I Encounter type: E Qualified Code(s): N30.01 - Acute cystitis with hematuria Plan: CIPRO IV, CONTINUE TO MONITOR (6) Hyperalbuminemia Status: Acute Plan: ALBUMIN DAILY, RECHECK LABS (7) Dementia Status: Chronic Qualifiers: Dementia type: unspecified type Alzheimer's disease onset: A Dementia behavioral disturbance: without behavioral disturbance Qualified Code(s): F03.90 - Unspecified dementia without behavioral disturbance Plan: CONTINUE ARICEPT, CONTINUE TO MONITOR (8) CHF (congestive heart failure) Status: Chronic Qualifiers: Congestive heart failure type: combined Congestive heart failure chronicity : acute on chronic Qualified Code(s): I50.43 - Acute on chronic combined systolic (congestive) and diastolic (congestive) heart failure Plan: CONTINUE LASIX, CONTINUE TO MONITOR (9) Coronary artery disease Status: Chronic Qualifiers: Coronary Disease-Associated Artery/Lesion type: C [place] vs. transplanted heart: N Associated angina: A (10) Hyperlipidemia Status: Chronic Qualifiers: Hyperlipidemia type: mixed hyperlipidemia Qualified Code(s): E78.2 - Mixed hyperlipidemia Plan: CONTINUE ZOCOR, CONTINUE TO MONITOR
[2017-04-13] MEDS ORDERED: ARTIFICIAL TEARS DROPS AFFEYE PRN (13:43)
[2017-04-13 14:47] VITALS: BP 108/63
[2017-04-13] MEDS ORDERED: MORPHINE SULFATE PCA 30 MG IVP PRN (15:07)
[2017-04-13] MEDS ORDERED: CIPRO IV 200 MG PREMIX* 200 MG/100 ML BAG IV SCH (21:00)
[2017-04-13] MEDS ORDERED: LIPOSYN III 20% 100ML 100 ML IV SCH (21:00)
[2017-04-13] MEDS ORDERED: CIPRO IV SCH (21:00)
== END 2017-04-13 17:45 | disposition expired | DRG 640 ==
LOC: ER 12:25 → ICU 14:32
PROVIDERS: ADMIT Internal Medicine; ATTEND Internal Medicine
DX: E87.6 Hypokalemia (principal); J18.1 Lobar pneumonia, unspecified organism; E86.0 Dehydration; N39.0 Urinary tract infection, site not specified; J44.9 Chronic obstructive pulmonary disease, unspecified; K21.9 Gastro-esophageal reflux disease without esophagitis; E78.2 Mixed hyperlipidemia; F32.89 Other specified depressive episodes; I25.10 Atherosclerotic heart disease of native coronary artery without angina pectoris; R09.2 Respiratory arrest
CPT/HCPCS: 36415; 36600; 51702; 71010; 80053; 80202; 81001; 82550; 82553; 82565; 82803; 84484; 85025; 87086; 93005; 94640; 94660; 96365; 96367; 96374; 96375; 99284; 99285; A4222; A4618; A7030; P9047; S0179; J0744; J1265; J1650; J2271; J2543; J3480; J7042; J7620